=== PATIENT | male | born 1960 | race Caucasian/White ===

== ENCOUNTER 2019-03-31 19:13 | Outpatient (REF) | payer MEDICAID, SELFPAY ==
[2019-03-31 21:27] LABS: BUN 12 mg/dL (7-18); Calcium 8.4 mg/dL (8.5-10.1); Chloride 105 mmol/L (98-107); Glucose 133 mg/dL (70-100); Potassium 3.6 mmol/L (3.5-5.1); Sodium 142 mmol/L (136-145)
== END 2019-03-31 19:33 ==
LOC: NCHCN 19:13
PROVIDERS: PCP Nurse Practitioner; Visit Provider Internal Medicine
DX: I10 Essential (primary) hypertension (principal)
CPT/HCPCS: 80048

== ENCOUNTER 2019-10-06 10:53 | Outpatient (CLI) | payer MEDICAID, SELFPAY ==
--- NOTE | 2019-10-06 10:45 | DI.RAD_ITS ---
EXAM: XR KNEE LT 3V AP,LAT,JUSTO CLINICAL HISTORY: L knee pain. TECHNIQUE: 2D digital imaging was performed. COMPARISON: No exams were available for comparison FINDINGS: BONES: No acute fracture is present. No bony destructive lesion is seen. Small enthesophyte at the s uperior patella. JOINTS: The knee is normally aligned. No joint effusion is seen. SOFT TISSUE: Normal. IMPRESSION: Normal radiographs of the left knee. DATA REPOSITORY: RADIATION DOSE DELIVERED:
== END 2019-10-06 11:13 ==
PROVIDERS: PCP Internal Medicine; Visit Provider Physician Assistant
DX: M25.562 Pain in left knee (principal)
CPT/HCPCS: 73562

== ENCOUNTER 2019-10-12 08:39 | Outpatient (CLI) | payer MEDICAID, SELFPAY ==
--- NOTE | 2019-10-12 | DI.US_ITS ---
EXAM: US ABDOMEN CLINICAL HISTORY: ABD PAIN, R10.9 TECHNIQUE: Ultrasound performed using standard protocol. COMPARISON: No exams were available for comparison FINDINGS: Liver is normal in size and echogenicity. No focal lesions or biliary dilatation is seen. The gall bladder has a normal appearance, without evidence of stones or wall thickening. The spleen, pancreas are unremarkable. There is no ascites. There is a small cyst in the left kidney. There is no evid ence of hydronephrosis. IMPRESSION: No acute abnormality. DATA REPOSITORY:
== END 2019-10-12 08:59 ==
PROVIDERS: PCP Internal Medicine; Visit Provider Specialist/Technologist Athletic Trainer
DX: R10.9 Unspecified abdominal pain (principal); N28.1 Cyst of kidney, acquired
CPT/HCPCS: 76700

== ENCOUNTER 2020-03-26 12:48 | Outpatient (REF) | payer MEDICAID, SELFPAY ==
[2020-03-26 20:53] LABS: Anion Gap 4.7 mmol/L (3-11); BUN 15 mg/dL (7-18); CO2 31.3 mmol/L (21.0-32.0); CREATININE 1.09 mg/dL (0.70-1.30); Calcium 9.3 mg/dL (8.5-10.1); Calculated LDL 151 mg/dL (<100); Chloride 106 mmol/L (98-107); Cholesterol 231 mg/dL (<200); Glucose 115 mg/dL (74-106); HDL Cholesterol 51 mg/dL (40-60); Potassium 4.1 mmol/L (3.5-5.1); Sodium 142 mmol/L (136-145); Triglyceride 148 mg/dL (<150)
== END 2020-03-26 13:08 ==
LOC: NCHCN 12:48
PROVIDERS: PCP Internal Medicine; Visit Provider Internal Medicine
DX: I10 Essential (primary) hypertension (principal); M54.2 Cervicalgia; Z13.220 Encounter for screening for lipoid disorders
CPT/HCPCS: 80048; 80061

== ENCOUNTER 2021-02-25 14:15 | Outpatient (CLI) | payer MEDICAID, SELFPAY ==
--- NOTE | 2021-02-25 13:30 | DI.RAD_ITS ---
Exam(s) XR KNEE RT 3V AP,LAT,JUSTO EXAM: XR KNEE RT 3V AP,LAT,JUSTO CLINICAL HISTORY: right knee pain. TECHNIQUE: 2D digital imaging was performed. COMPARISON: CR XR KNEE LT 3V AP,LAT,JUSTO from 10/06/2019 FINDINGS: There is no evidence of fracture or prominent joint effusion. No osseous lesions. No degenerative c hanges. IMPRESSION: No significant radiographic findings. DATA REPOSITORY: RADIATION DOSE DELIVERED:
== END 2021-02-25 14:16 | disposition home or self-care (01) ==
LOC: DIORS 14:16
PROVIDERS: PCP Internal Medicine; Visit Provider Physician Assistant
DX: M25.561 Pain in right knee (principal)
CPT/HCPCS: 73562

== ENCOUNTER 2022-03-26 15:41 | Outpatient (REF) | payer MEDICAID, SELFPAY ==
[2022-03-26 21:44] LABS: HGB 15.6 g/dL (13.5-17.5); MCH 31.7 pg (27.0-33.0); MCHC 36.3 % (32.0-36.0); MCV 87 fL (80-95); MPV 10.9 fL (8.0-11.0); Platelet Count 192 10^3/uL (130-400); RBC 4.92 10^6/uL (4.36-5.78); RDW 11.8 % (11.8-14.1); RDW-SD 37.9 fL; WBC 6.13 10^3/uL (4.4-10.8)
[2022-03-26 22:04] LABS: Anion Gap 7.5 mmol/L (3-11); BUN 15 mg/dL (7-18); CO2 29.5 mmol/L (21.0-32.0); CREATININE 1.1 mg/dL (0.70-1.30); Calcium 9.1 mg/dL (8.5-10.1); Chloride 104 mmol/L (98-107); Glucose 107 mg/dL (74-106); Potassium 3.8 mmol/L (3.5-5.1); Sodium 141 mmol/L (136-145)
== END 2022-03-26 15:42 | disposition home or self-care (01) ==
LOC: NCHCN 15:41
PROVIDERS: PCP Family Medicine; Visit Provider Family Medicine
DX: I10 Essential (primary) hypertension (principal); R07.9 Chest pain, unspecified
CPT/HCPCS: 80048; 85027

== ENCOUNTER 2022-11-22 01:16 | Emergency (ER) | payer MEDICAID, SELFPAY ==
[2022-11-22] VITALS (23 sets, daily range): BP systolic 149–192; BP diastolic 74–88; PULSE 49–73; RESP 8–18; TEMP 37.5; O2SAT 93–97
--- NOTE | 2022-11-22 01:15 | RT.EKG_ITS ---
APPROVED REPORT Exam: Resting ECG Reason for Exam: difficulty breathing Patient Location: E HR:75 bpm ECG Measurements Heart Rate 75 AXIS KS 190 P -22 QRSd 103 QRS 245 QT 413 T 52 QTc 462 Conclusion Sinus rhythm...normal P axis, V-rate 60- 99 LAD, consider left anterior fascicular block...axis(240,-40), S>R II III aVF Physician: no stemi
--- NOTE | 2022-11-22 01:15 | DI.CT_ITS ---
Exam(s) CT CHEST PE CTA EXAM: CT CHEST PE CTA CLINICAL HISTORY: Shortness of breath, pleuritic chest pain. TECHNIQUE: Imaging Protocol: Axial CT angiography was performed with multi-slice acquisition and mu lti-planar reconstructions as well as axial, coronal and sagittal MIP reconstructions. CONTRAST MATERIAL: Intravenous: Omnipaque 350 Contrast volume:100 ml COMPARISON: No exams were available for comparison FINDINGS: Pulmonary Arteries: No evidence of filling defect to suggest pulmonary emboli. Tracheobronchial tree: Patent where visualized. Mediastinum and Dang: No dominant adenopathy or fluid collection. Pulmonary parenchyma: Expiratory changes. No consolidation or dominant measurable mass. Pleura: No effusion or pneumothorax. Heart: The heart is mildly dilated. No coronary artery calcifications are seen. Aorta: Thoracic aorta non-dilated. No aneurysm. No dissection. Upper abdomen: Small hiatal hernia Bones: Unremarkable for age. Tubes, Catheters, and Lines: None IMPRESSION: No evidence of pulmonary embolism or other acute abnormality.. RADIATION DOSE DELIVERED: 429.11mGy.cm Total DLP DATA REPOSITORY: All CT scans at this facility are submitted to the National Radiology Data Registry (NRDR) Dose Index Registry (DIR) with the [employer] (ACR). RADIATION OPTIMIZATION: All CT scans at this facility use at least one of these dose optimization te chniques: automated exposure control; mA and/or kV adjustment per patient size (includes targeted exa ms where dose is matched to clinical indication); or iterative reconstruction.
--- NOTE | 2022-11-22 01:44 | ED.GENADUL_ITS ---
Discharge Plan Disposition Patient Disposition: Home Condition: Good Discharge Details Clinical Impression: Breath shortness, Chest discomfort Primary Care Provider: Samuel Morgan ED Provider: Mariusz Henriquez Home Meds and New Rx's Prescriptions: Continued fluticasone propionate 50 mcg/actuation spray,suspension 2 spray RAYRAY DAILY hydrochlorothiazide 25 mg tablet 12.5 mg PO DAILY lisinopril 10 mg tablet 5 mg PO DAILY Discharge Instructions Instructions: Chest Pain (ED), Dyspnea (ED) Additional Instructions: At this time your work-up has returned and is very reassuring. Your imaging shows no evidence of blood clots, tumors, your work-up shows no signs of heart attack, or other significant abnormality. As we discussed together there are potential causes that may have brought about your symptoms, including your hiatal hernia, reflux, or muscle components. Please follow-up closely with your primary care provider. You can further discuss potential stress testing on an outpatient basis. If you notice any worsening of your symptoms, or any new symptoms such as vomiting, diarrhea, fever, chills, shortness of breath, chest pain, numbness, weakness, or fainting , please return immediately to the emergency department for reevaluation. Please follow up with your primary care provider as soon as possible for reassessment and reevaluation. As always, it was a pleasure participating in your medical care today. Referrals: Samuel Morgan MD [Primary Care Provider] - Medical Decision Making 62-year-old male with a past medical history of hypertension, previous sleep apnea years ago, presents today for evaluation of difficulty breathing and shortness of breath. Patient states that he woke up this evening with notable trouble breathing. He is uncertain how long it has been going on before hand. It lasted about 30 seconds where he felt that he could not breathe at all. He states that it feels different than when he had his sleep apnea in the past. It resolved on its own, he still has what he describes as a residual mild tightness when he takes of breath, but no significant pain. He feels well otherwise. He denies any significant chest pain in general, no arm neck or shoulder pain. He denies any significant difficulty with exertion or return or worsening of symptoms with exertion. He states that he did go for a run yesterday and had no significant challenges with this. He denies any regular exertional chest pain or dyspnea. No other complaints at this time. He denies any recent long trips surgeries or procedures. He denies a history of blood clots or heart attack. He does not smoke. He denies any tearing or ripping sensation. Physical exam demonstrates a well-appearing male, no signs of respiratory distress at this time. Blood pressure is slightly high, but O2 saturations are excellent. Lungs are clear. Calves are nontender. EKG shows no evidence of STEMI. Differential includes sleep apnea episode, precordial catch syndrome, PE or dysrhythmia. COPD or pneumonia is of concern. He does admit to a very mild cough that he has had over the past few weeks, but this was relatively benign. We will evaluate for these concerning etiologies, monitor closely and reassess. 5:52 AM Laboratory work-up has returned, initial and repeat troponin are normal. Electrolytes normal, proBNP is normal suggesting no signs of heart strain. COVID flu and RSV are negative. CT/CTA of the chest shows no evidence of PE. Small amount of atelectasis and a hiatal hernia but no other significant abnormality. Patient remains notably stable, no signs of shortness of breath or abnormal vital signs whatsoever. Patient looks clinically well. Uncertain as to what the exact etiology was that caused the patient's initial symptoms, however differential does include reflux, his hiatal hernia, or laryngeal spasm which is since resolved. At this time I do feel safe patient is safe for discharge home. He shows clinical stability on reassessment. Discussed red fla gs for which to return. I have extensively reviewed the treatment plan and discharge instructions with the patient and their family. I have addressed all patient concerns at this time. The patient and family was made aware of what symptoms to monitor for that would warrant a return to the emergency department. Discussed the plan with the patient and family, they demonstrate verbal understanding and agreement with our assessment and plan at this time. The documentation in this chart was dictated using [employer] dictation software. Please excuse any dictation errors. FINDINGS: Pulmonary arteries: No pulmonary artery filling defects. Aorta: No aortic aneurysm or dissection. Lungs: Dependent subsegmental atelectasis. Pleural spaces: Unremarkable. No pneumothorax. No pleural effusion. Heart: Heart top normal in size. Heart RV/LV ratio: 0.85. Coronary arteries: No coronary artery calcifications. Lymph nodes: Unremarkable. No enlarged lymph nodes. Diaphragm: Small hiatal hernia. Bones/joints: Unremarkable. No acute fracture. Soft tissues: Unremarkable. IMPRESSION: 1. No acute findings. 2. Small hiatal hernia. Thank you for allowing us to participate in the care of your patient. Dictated and Authenticated by: Han Madera DO 11/22/2022 5:20 AM Eastern Time ([place] & [place]) HPI General Date/Time Provider Initiated Documentation: 11/22/22 01:18 . HPI Narrative: 62-year-old male with a past medical history of hypertension, previous sleep apnea years ago, presents today for evaluation of difficulty breathing and shortness of breath. Patient states that he woke up this evening with notable trouble breathing. He is uncertain how long it has been going on before hand. It lasted about 30 seconds where he felt that he could not breathe at all. He states that it feels different than when he had his sleep apnea in the past. It resolved on its own, he still has what he describes as a residual mild tightness when he takes of breath, but no significant pain. He feels well otherwise. He denies any significant chest pain in general, no arm neck or shoulder pain. He denies any significant difficulty with exertion or return or worsening of symptoms with exertion. He states that he did go for a run yesterday and had no significant challenges with this. He denies any regular exertional chest pain or dyspnea. No other complaints at this time. He denies any recent long trips surgeries or procedures. He denies a history of blood clots or heart attack. He does not smoke. He denies any tearing or ripping sensation. Related Data Home Medications Medication Instructions Recorded Confirmed fluticasone propionate 50 2 spray intranasal DAILY 09/19/19 11/22/22 mcg/actuation nasal spray,suspension hydrochlorothiazide 25 mg tablet 12.5 mg PO DAILY 02/25/21 11/22/22 lisinopril 10 mg tablet 5 mg PO DAILY 02/25/21 11/22/22 Allergies Allergy/AdvReac Type Severity Reaction Status Date / Time penicillin V Allergy Mild Verified 11/22/22 01:31 General Stated Complaint: SOB KVNG: 3 Review of Systems All systems reviewed & are unremarkable except as noted in HPI and below PFSH All Active Problems (Updated 11/22/22 @ 05:41 by Mariusz Henriquez DO) Breath shortness (Acute) Chest discomfort (Acute) Internal derangement of right knee (Acute) Bilateral sensorineural hearing loss (Acute) Tendinopathy of patella (Acute) Iliotibial band syndrome, left leg (Acute) Nasal polyp (Acute) Deviated nasal septum (Acute) Allergic rhinitis (Acute) HTN (hypertension) (Chronic) Flushing (Acute) Sleep apnea (Acute) Chest pain, atypical (Acute) Neck pain (Acute) Seborrheic keratosis (Acute) Preventative health care (Acute) Knee joint pain (Acute) Ventral hernia (Acute) Medical History Hearing loss Shoulder pain Social History Smoking/Tobacco Use Status: Former Tobacco Use Smoking risk assessment performed?: Yes Substance use type: does not use Current gender identity: male Exam Narrative Exam Narrative: 1.Const: Well-nourished, Well-developed, appearing stated age 2.Eyes: PERRL, no conjunctival injection, and symmetrical lids. 3.ENT: Atraumatic external nose and ears. Moist MM. Neck: Symmetric, trachea midline, No thyromegaly. 4.CVS: +S1/S2, No murmurs or gallops. Peripheral pulses 2+ and equal in all extremities. Brisk capillary refill in all extremities. 5.RESP: Unlabored respiratory effort. Clear to auscultation bilaterally. No wheezes rales or rhonchi 6.GI: Soft, Nontender/Nondistended, No hepatosplenomegaly. No guarding or rebound. 7.MSK: Normocephalic/Atraumatic, Extremities w/o deformity or ttp No cyanosis or clubbing, Normal movement of all extremities 8.Skin: Warm, Dry. No rashes or lesions. 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 Sensation grossly intact, no focal neurologic deficits. 10.Psych: (AAO) x3. Appropriate mood and affect Course Vital Signs Vital signs: Vital Signs Temperature 37.5 C 11/22/22 01:20 Pulse 73 11/22/22 01:20 Respiratory Rate 16 11/22/22 01:20 Blood Pressure 192/86 H 11/22/22 01:20 Pulse Oximetry 96 11/22/22 01:20 Temperature 37.5 C 11/22/22 01:20 Temperature Source Skin 11/22/22 01:20 Pulse 73 11/22/22 01:20 Respiratory Rate 16 11/22/22 01:20 Respiratory Effort Normal 11/22/22 01:29 Blood Pressure 192/86 H 11/22/22 01:20 Blood Pressure Position Sitting 11/22/22 01:20 Pulse Oximetry 96 11/22/22 01:20 Oxygen Delivery Method Room Air 11/22/22 01:20 Oxygen Flow Rate 0 11/22/22 01:20 Pain Level 1 11/22/22 01:20
[2022-11-22 01:57] LABS: Abs Immature Grans 0.01 10^3/uL (0.0-0.06); Absolute Basophil Count 0.02 10^3/uL (0.0-0.2); Absolute Eosinophil Count 0.27 10^3/uL (0.0-0.7); Absolute Lymphocyte Count 1.19 10^3/uL (1.2-3.4); Absolute Monocyte Count 0.35 10^3/uL (0.1-0.8); Absolute Neutrophil Count 3.31 10^3/uL (1.2-6.7); BE (Venous) 3 mmol/L (-2-3); Basophils % 0.4; Eosinophils % 5.2; HCO3 (Venous) 28 mmol/L (23-28); HCT 39.4 % (40.0-50.0); HGB 13.9 g/dL (13.5-17.5); Immature Grans % 0.2; Lymphocytes % 23.1; MCH 31.2 pg (27.0-33.0); MCHC 35.3 % (32.0-36.0); MCV 88 fL (80-95); MPV 10.2 fL (8.0-11.0); Monocytes % 6.8; Neutrophils % 64.3; O2 Sat (Venous) 78 %; Platelet Count 167 10^3/uL (130-400); RBC 4.46 10^6/uL (4.36-5.78); RDW 12.3 % (11.8-14.1); RDW-SD 39.6 fL; TCO2 (Venous) 25 mmol/L (24-29); WBC 5.15 10^3/uL (4.4-10.8); pCO2 (Venous) 46 mmHg (41-51); pO2 (Venous) 42 mmHg
[2022-11-22 02:14] LABS: COVID-19 PCR Negative (Negative); Influenza A PCR Negative (Negative); Influenza B PCR Negative (Negative); RSV PCR Negative (Negative)
[2022-11-22 02:14] LABS: INR 0.9 (0.9-1.1); PTT Activated 26.3 sec (21.5-31.9); Prothrombin Time 9.6 sec (9.3-11.0)
[2022-11-22 02:20] LABS: ALT 23 U/L (16-63); AST 13 U/L (15-37); Albumin 3.5 g/dL (3.4-5.0); Alkaline Phosphatase 33 U/L (46-116); Anion Gap 5.5 mmol/L (3-11); BUN 11 mg/dL (7-18); Bilirubin, Total 0.5 mg/dL (0.2-1.0); CO2 28.5 mmol/L (21.0-32.0); CREATININE 1.1 mg/dL (0.70-1.30); Calcium 8.6 mg/dL (8.5-10.1); Chloride 106 mmol/L (98-107); Glucose 145 mg/dL (74-106); NT-proBNP 244 pg/mL (<300); Potassium 3.5 mmol/L (3.5-5.1); Sodium 140 mmol/L (136-145); Troponin I < 50 ng/L (<or=60)
[2022-11-22 02:21] LABS: Source Nasopharynx
--- NOTE | 2022-11-22 02:48 | NUR.NOTE ---
Nursing Note: Pt ambulatory to restroom without difficulty.
[2022-11-22] MEDS: Omnipaque 350 MG/ML 100 ML BTL IJ (02:49)
[2022-11-22] MEDS: Normal Saline - Diluent 50 ML VIAL IJ (02:49)
[2022-11-22 04:30] LABS: Troponin I < 50 ng/L (<or=60)
--- NOTE | 2022-11-22 05:20 | DI.VRAD_ITS ---
PROCEDURE INFORMATION: Exam: CTA Chest With Contrast Exam date and time: 11/22/2022 2:42 AM Age: 62 years old Clinical indication: Pain; Shortness of breath; Right-sided; Additional info: Shortness of breath, pleuritic chest pain TECHNIQUE: Imaging protocol: Computed tomographic angiography of the chest with contrast. 3D rendering (Not supervised by radiologist): MIP and/or 3D reconstructed images were created by the technologist. Radiation optimization: All CT scans at this facility use at least one of these dose optimization techniques: automated exposure control; mA and/or kV adjustment per patient size (includes targeted exams where dose is matched to clinical indication); or iterative reconstruction. Contrast material: OMNI 350; Contrast volume: 100 ml; Contrast route: INTRAVENOUS (IV); COMPARISON: No relevant prior studies available. FINDINGS: Pulmonary arteries: No pulmonary artery filling defects. Aorta: No aortic aneurysm or dissection. Lungs: Dependent subsegmental atelectasis. Pleural spaces: Unremarkable. No pneumothorax. No pleural effusion. Heart: Heart top normal in size. Heart RV/LV ratio: 0.85. Coronary arteries: No coronary artery calcifications. Lymph nodes: Unremarkable. No enlarged lymph nodes. Diaphragm: Small hiatal hernia. Bones/joints: Unremarkable. No acute fracture. Soft tissues: Unremarkable. IMPRESSION: 1. No acute findings. 2. Small hiatal hernia. Dictated and Authenticated by: Han Madera MD. Ordering:EMMANUEL Vee MD
== END 2022-11-22 05:50 | disposition home or self-care (01) ==
PROVIDERS: Emergency Provider Student in an Organized Health Care Education/Training Program; PCP Family Medicine
DX: R06.02 Shortness of breath (principal); R07.89 Other chest pain; R05.9 Cough, unspecified; I10 Essential (primary) hypertension; J98.11 Atelectasis; K44.9 Diaphragmatic hernia without obstruction or gangrene; Z87.891 Personal history of nicotine dependence; Z20.822 Contact with and (suspected) exposure to COVID-19
CPT/HCPCS: 71275; 80053; 82805; 87637; 93005; 99285; 83880; 84484; 85025; 85610; 85730; 93010; 99283; J3490

== ENCOUNTER 2023-01-09 10:28 | Outpatient (RCR) | payer MEDICAID, SELFPAY ==
--- NOTE | 2023-01-09 10:44 | HOLTER_ITS ---
APPROVED REPORT Conclusion This is a 48-hour Holter monitor Rhythm throughout is sinus. Average heart rate was 53. Minimum was 42, maximum 122 There were very rare isolated atrial and ventricular ectopic beats There was no atrial fibrillation, no SVT, no high-grade AV block, no pauses greater than 3 seconds
== END 2023-01-30 23:59 | disposition home or self-care (01) ==
LOC: CARDOPNVT 10:28
PROVIDERS: PCP Family Medicine; Visit Provider Family Medicine
DX: R07.1 Chest pain on breathing (principal)
CPT/HCPCS: 93225; 93226

== ENCOUNTER 2023-01-12 11:21 | Outpatient (REF) | payer MEDICAID, SELFPAY ==
[2023-01-13 11:53] LABS: Creatinine,Urine 31.12 mg/dL
[2023-01-13 12:02] LABS: Creatinine,24hr Ur 1.09 g/24hr (0.95-2.49); Total Volume 3500 ml
[2023-01-15 12:48] LABS: Urine Volume 3500 mL; VMA, Adult (>14y) 1.8 mg/24 h (<8.0)
[2023-01-16 01:59] LABS: Metanephrines, U 112 mcg/24 h; Normetanephrine, U 172 mcg/24 h; Total Metanephrines, U 284 mcg/24 h; Urine Volume 3500 mL
[2023-01-18 16:12] LABS: Urine Volume 3500 mL
== END 2023-01-12 11:22 | disposition home or self-care (01) ==
LOC: NCHCN 11:21
PROVIDERS: PCP Family Medicine; Visit Provider Family Medicine
DX: I10 Essential (primary) hypertension (principal)
CPT/HCPCS: 81050; 82384; 82570; 83835; 84585

== ENCOUNTER 2023-01-16 01:01 | Outpatient (CLI) | payer MEDICAID, SELFPAY ==
--- NOTE | 2023-01-16 09:30 | DI.US_ITS ---
APPROVED REPORT EXAM: Comprehensive 2D, Doppler, and color-flow Echocardiogram Patient Location: Out-Patient Leadership Development Consultant: Danial Noel RDMS, RVT Indications: dyspnea, chest pain, HTN Other Information Study Quality: Adequate Conclusion Normal left ventricular wall thickness and chamber size. Ejection fraction is 60 to 65%. Wall motio n is normal Normal right ventricular size and systolic function Both atria are normal in size No structural or hemodynamically significant valvular disease We will estimated right ventricular systolic pressure, 22 mmHg Wall motion Left Ventricle The left ventricle is normal size. The left ventricular systolic function is normal. The left ventric ular ejection fraction is within the normal range. There is normal left ventricular wall thickness. T here is normal LV segmental wall motion. There is no ventricular septal defect visualized. LVEF is 60 -65%. Right Ventricle The right ventricle is normal size. The right ventricular systolic function is normal. The RVSP is 21 .7 mmHg. Atria The left atrium size is normal. The right atrium size is normal. The interatrial septum is intact wit h no evidence for an atrial septal defect. Aortic Valve The aortic valve is normal in structure. Aortic valve is trileaflet. There is no aortic valvular sten osis. Trace aortic regurgitation. Mitral Valve The mitral valve is normal in structure. No evidence of mitral valve stenosis. Trace mitral regurgita tion. Tricuspid Valve The tricuspid valve is normal in structure. There is no tricuspid valve stenosis. Trace tricuspid reg urgitation. Pulmonic Valve The pulmonary valve is normal in structure. There is no pulmonic valvular stenosis. Trace pulmonic re gurgitation. Great Vessels The aortic root is normal in size. The ascending aorta is normal in size. Aortic arch is normal in ca liber. IVC is normal in size and collapses >50% with inspiration. Pericardium There is no pericardial effusion. 2D Dimensions IVSD d PLAX 0.67 cm M: 0.6-1.2 LV Vol A2C d MOD 155.0 mL LVPW d PLAX 0.68 cm M: 0.6 - 1.2 LV Vol A4C d MOD 148.0 mL LVID d PLAX 4.69 cm M: 4.2 - 5.8 LA Area A4C s MOD 24.85 cm2 LVDs 3.10 cm M: 2.5 - 4.0 LV EF A4C MOD 62.3 % Ao Root d 3.69 cm M: 3.1 - 3.7 LV EF A2C MOD 65.7 % Ao Asc Diam d 3.27 cm M: 2.6 - 3.4 LV EF Biplane MOD 64.9 % LV EF Teichholz 61.7 % SV 99.30 mL LVEF (Espinosa's) 64.88 % M: 52 - 72 LV Volume 153.06 mL M: 62 - 150 LV Volume Index 76.14 mL/m2 M: 34 - 74 LV Vol Biplane MOD 153.1 mL FS 33.15 % M-Mode TAPSE 3.05 cm (M/F) >1.7 LV Diastology MV E' medial 0.073 (>0.07 m/s) E/A Ratio 0.9 LV E/e MED 9.15 (<14) MV E Vmax 0.67 (0.4-1.3 m/s) MV E' lateral 0.124 (>0.1 m/s) MV A Vmax 0.75 (0.4-1.3 m/s) LV E/e LAT 5.40 (<14) MV E/A Ratio 0.89 MV E/E' medial 9.16 MV E/E' lateral 5.42 Aortic Valve LVOT Area 3.65 cm2 AoV Area Vmax 2.95 cm2 LVOT Vmax 1.09 m/s DAJA Mean Noel. 2.99 cm2 LVOT Mean Noel. 0.73 m/s AR DT 3402 msec LVOT Peak Grad 4.8 mmHg AR PHT 986 msec LVOT Mean Grad 2.5 mmHg LVOT VTI 0.244 m LVOT Diam s 2.15 cm AoV Vmax 1.35 m/s Velocity Ratio 0.81 AoV Mean Noel. 0.89 m/s AoV Peak Grad 7.3 mmHg LVOT SV 88.84 mL AoV Mean Grad 3.6 mmHg AoV VTI 0.272 m AoV Area VTI 3.27 cm2 Mitral Valve MV DT 237 (160-240 msec) MV PHT 69 msec MV Area PHT 3.20 cm2 MV VTI 0.305 m MV Area VTI 2.91 (4.0-6.0 cm2) Pulmonary Valve PV Vmax 1.23 (0.5-1.5 m/s) RVOT Peak Gr. 3.11 mmHg PV Peak Grad 6.0 mmHg RVOT Mean Gr. 1.20 mmHg PV Mean Grad 2.9 mmHg RVOT VTI 0.145 m PV VTI 0.257 m RVOT Vmax 0.88 m/s Tricuspid Valve TR Peak Grad 18.6 mmHg TR Vmax 2.16 m/s RA Pressure 3.00 mmHg RVSP (TR) 21.7 mmHg
== END 2023-01-16 01:21 ==
LOC: DI 01:01
PROVIDERS: PCP Family Medicine; Visit Provider Family Medicine
DX: R07.89 Other chest pain (principal); R06.00 Dyspnea, unspecified
CPT/HCPCS: 93306

== ENCOUNTER 2023-01-19 01:20 | Outpatient (CLI) | payer MEDICAID, SELFPAY ==
--- NOTE | 2023-01-19 14:37 | DI.RAD_ITS ---
Exam(s) XR CERVICAL SP COMP W FLEX/EXT EXAM: XR CERVICAL SP COMP W FLEX/EXT CLINICAL HISTORY: NECK PAIN M54.2. TECHNIQUE: 2D digital imaging was performed. Seven views. Flexion and extension lateral views were performed in addition to the neutral lateral view. COMPARISON: No exams were available for comparison FINDINGS: BONES: No fracture or destructive lesion. Vertebral bodies are unremarkable. Facet degenerative murray nges throughout. DISKS: Moderate narrowing of the C5-6 and C6-7 disc spaces with endplate osteophytes projecting mainl y anteriorly. There is moderate right neural foraminal narrowing these levels. Neural foraminal santo rowing is also seen secondary to facet degenerative changes on the left at C3-4 through C5-6. ALIGNMENT: Some straightening of the normal cervical lordosis secondary to facet degenerative changes . There is slight retrolisthesis of C5 with respect to C4 with flexion. The odontoid and atlantoaxi al articulations are normal. SOFT TISSUE: Normal. The lung apices are clear. IMPRESSION: Degenerative disc changes greatest at C 5 6 and C6-7. Facet degenerative changes greater on the left side causing neural foraminal narrowing. DATA REPOSITORY: RADIATION DOSE DELIVERED:
--- NOTE | 2023-01-19 15:00 | ETT_ITS ---
APPROVED REPORT Exam: Exercise Treadmill Patient Location: Out-Patient Room/Bed: Stress Nurse: Tawny Reilly RN Ordering Provider:PRESTON KUMAR, Contact Number: [phone] BMI: 27.31 Baseline Rhythm: Sinus Rhythm Comment: Incomplete RBBB, T wave inversions at rest in aV: and V2 Indications: Dyspnea, Chest Pain, Hypertension Medical History Medical History: HTN, sleep apnea, hearing loss, hx of white coat syndrome w/ high BP's in healthcare settings Cardiac Medications: Lisinopril, HCTZ Allergies: Penicillin Cardiac Risk Factors: +HTN, +HLD Previous Cardiac Procedures: None Pretest Chest Pain Characteristics: None Exercise History: Physically active Physical Disabilities: None Lung Sounds: Cleat to auscultation, bilaterally Heart Sounds: S1/S2, regular Stress Test Details Test: Exercise stress testing was performed using a Fazal protocol. Rest Stress HR Resting HR Supine: 72 bpm Max Heart Rate (APMHR): 158 bpm Resting HR Standin bpm Target HR (85% APMHR): 134 bpm Max HR Achieved: 136 bpm % of APMHR: 86 Recovery HR: 68 bpm HR response to stress: Normal HR response to stress BP Resting BP Supine: 190/88 mmHg Resting BP Standin/98 mmHg Max BP: 200/100 mmHg Recovery BP: 180/90 mmHg BP response to stress: Normal blood pressure response to stress. ECG Resting ECG: Sinus Rhythm, Incomplete RBBB, t wave inversions in aVL, V2 Ectopy: None Stress ECG: Sinus Tachycardia ST Change: No significant ST segment changes noted Arrhythmia: None Recovery ECG: Sinus Rhythm Recovery ST Change: No significant ST segment changes noted Recovery Arrhythmia: Rare PVC Clinical Reason for Termination: Fatigue Stress Symptoms: General Fatigue Exercise duration: 9 min43 sec Highest Stage Reached: Stage 3: 3.4 mph at 14% grade. Exercise capacity: 11.35 METs Angina Score: None Rincon Treadmill Score: 9 Rate Pressure Product: [id number] Stress ECG Conclusion 1. The resting electrocardiogram showed an incomplete right bundle branch block 2. Resting hypertension. Normal heart rate and blood pressure response to exercise. 3. Patient exercised on the Fazal protocol and completed a workload of 11.35 METS. The patient achie mague 86% of predicted heart rate for age 4. There was no electrocardiographic evidence of myocardial ischemia 5. There were no significant dysrhythmias Rincon Treadmill Score is 9 which is Low risk. Stress Test Summary STAGE Time (mins) Speed (mph) Grade (%) HR BP SpO2 SYMPTOMS METS Supine 72 200/100, repeat 190/88 Standing 65 194/98 1 3 1.7 10 89 188/90 4.5 2 6 2.5 12 104 198/90 7 3 9 3.4 14 136 200/90 10 1 min recovery 109 192/84 3 min recovery 66 200/100 6 min recovery 68 180/90
== END 2023-01-19 01:40 ==
LOC: DI 01:20
PROVIDERS: PCP Family Medicine; Visit Provider Family Medicine
DX: R07.89 Other chest pain (principal); I10 Essential (primary) hypertension; R06.00 Dyspnea, unspecified
CPT/HCPCS: 72052; 93017

== ENCOUNTER 2023-01-21 14:12 | Outpatient (CLI) | payer MEDICAID, SELFPAY ==
--- NOTE | 2023-01-21 | DI.RAD_ITS ---
Exam(s) XR SHOULDER LT COMPLETE 2+V EXAM: XR SHOULDER LT COMPLETE 2+V CLINICAL HISTORY: NECK PAIN, M54.2. TECHNIQUE: 2D digital imaging was performed of the left shoulder. Five images were obtained. AP, G rashey, Y-view and axillary views were obtained. COMPARISON: CR XR CERVICAL SP COMP W FLEX/EXT from 01/19/2023 FINDINGS: BONES: No acute fracture is present. No bony destructive lesion is seen. JOINTS: No dislocation present. The joint spaces are well maintained. SOFT TISSUE: There is a 2 cm long linear density in the soft tissues lateral to the proximal humeral diaphysis. This appears to represent a foreign body in the soft tissues. IMPRESSION: 1. 2 cm linear foreign body in the soft tissues lateral to the proximal humeral diaphysis. 2. No acute osseous abnormality. Unexpected findings DATA REPOSITORY: RADIATION DOSE DELIVERED:
== END 2023-01-21 14:32 ==
LOC: DI 14:12
PROVIDERS: PCP Family Medicine; Visit Provider Family Medicine
DX: M54.2 Cervicalgia; M79.89 Other specified soft tissue disorders
CPT/HCPCS: 73030

== ENCOUNTER 2023-02-03 07:40 | Emergency (ER) | payer MEDICAID, SELFPAY ==
[2023-02-03 07:44] VITALS: BP 182/93; PULSE 66; RESP 16; TEMP 37.2; O2SAT 98
[2023-02-03 07:53] VITALS: RESP 16
--- NOTE | 2023-02-03 08:38 | W.ED.GENAD ---
Discharge Plan Disposition Patient Disposition: Home Condition: Stable Discharge Details Clinical Impression: Depression, Anxiety, Hypokalemia Primary Care Provider: Samuel Morgan ED Provider: Agustin Ann Home Meds and New Rx's Prescriptions: New citalopram [Celexa] 10 mg tablet 20 mg PO DAILY Qty: 14 0RF Continued fluticasone propionate 50 mcg/actuation spray,suspension 2 spray RAYRAY DAILY hydrochlorothiazide 25 mg tablet 12.5 mg PO DAILY lisinopril 10 mg tablet 10 mg PO DAILY Discharge Instructions Instructions: Hypokalemia (ED), Depression (ED), Anxiety (ED) Additional Instructions: Please follow-up with [facility]. Thank Please contact your primary care physician to arrange follow-up. Call tomorrow. Be sure to discuss initiation of antidepressant. Return to the ER immediately for any worsening or new concerning symptoms. Referrals: [facility] [Outside] Samuel Morgan MD [Primary Care Provider] - Medical Decision Making 900 --62-year-old male with history of hypertension, here with depression and anxiety, persistent over the past 2 weeks and at times severe with associated suicidality. Patient has no specific plan. Patient notes generalized fatigue, difficulty sleeping and poor sleeping with unintentional weight loss. Patient is not currently suicidal and feels safe here in the emergency department. He has had significant difficulty securing outpatient psychiatric services. Plan to consult [facility] for crisis evaluation. Consider thyroid disease and will obtain TSH. -- Labs reviewed and nondiagnostic. Mild hypokalemia noted. I will give potassium chloride 20 meq p.o. Patient medically cleared. 1250 --patient seen by [facility] crisis screener who recommends outpatient follow-up and will provide referral resources. 1320 --patient feels safe with discharge plan. He is requesting initiation of SSRI. Patient has a friend who is a psychologist that is recommended to restart this treatment. I explained that this would best be initiated by PCP with coordination with mental health team. Patient provided informed consent to initiate treatment today with plan for close outpatient follow-up. He will contact PCP first thing tomorrow to discuss ongoing treatment. Lab Data Lab results reviewed: Yes I reviewed the patient's lab results. Labs: Laboratory Tests Range/Units 02/03/23 02/03/23 02/03/23 08:58 08:58 08:58 WBC (4.4-10.8) 10^3/uL 5.25 RBC (4.36-5.78) 10^6/uL 4.85 Hgb (13.5-17.5) g/dL 15.4 Hct (40.0-50.0) % 42.0 MCV (80-95) fL 87 MCH (27.0-33.0) pg 31.8 MCHC (32.0-36.0) % 36.7 H RDW (11.8-14.1) % 11.8 Plt Count (130-400) 10^3/uL 162 MPV (8.0-11.0) fL 10.0 Immature Gran % 0.4 Neutrophils % 78.2 Lymphocytes % 14.1 Monocytes % 6.3 Eosinophils % 0.6 Basophils % 0.4 Nucleated RBC % (0.0-0.3) % 0.0 Absolute Neutrophils (1.2-6.7) 10^3/uL 4.11 Absolute Lymphocytes (1.2-3.4) 10^3/uL 0.74 L Absolute Monocytes (0.1-0.8) 10^3/uL 0.33 Absolute Eosinophils (0.0-0.7) 10^3/uL 0.03 Absolute Basophils (0.0-0.2) 10^3/uL 0.02 Sodium (136-145) mmol/L 140 Potassium (3.5-5.1) mmol/L 3.4 L Chloride (98-107) mmol/L 104 Carbon Dioxide (21.0-32.0) mmol/L 28.3 Anion Gap (3-11) mmol/L 7.7 BUN (7-18) mg/dL 8 Creatinine (0.70-1.30) mg/dL 1.2 Est GFR (CKD-EPI 2020) (mL/min/1.73m2) 68.38 Glucose (74-106) mg/dL 137 H Calcium (8.5-10.1) mg/dL 8.8 Magnesium (1.8-2.4) mg/dL 2.1 Total Bilirubin (0.2-1.0) mg/dL 1.0 AST (15-37) U/L 13 L ALT (16-63) U/L 17 Alkaline Phosphatase (46-116) U/L 28 L Total Protein (6.4-8.2) g/dL 7.6 Albumin (3.4-5.0) g/dL 4.1 TSH (0.36-3.74) uIU/mL 1.20 Urine Color (Yellow) Yellow Urine Clarity (Clear) Clear Urine pH (5-8) 7.0 Ur Specific [place] (1.005-1.025) 1.015 Urine Protein (Negative) mg/dL Negative Urine Ketones (Negative) mg/dL Negative Urine Blood (Negative) Negative Urine Nitrite (Negative) Negative Urine Bilirubin (Negative) Negative Urine Urobilinogen (Up to 0.2) mg/dL 0.2 Ur Leukocyte Esterase (Negative) Negative Urine Glucose (Negative) mg/dL Negative HPI General Mode of arrival: ambulatory. Date/Time Provider Initiated Documentation: 02/03/23 07:41. Limitations to Documentation: no limitations. Information obtained by: patient and family (). HPI Narrative: 62-year-old male presents with chief complaint of depression and anxiety. Patient notes persistent anxiety and depression over the past 2 weeks. Patient feels overwhelmed. Symptoms do wax and wane and he has days with complete resolution of symptoms and then they return. Symptoms seem worse at night and in the morning. He notes difficulty sleeping. Symptoms are severe. He has had fleeting thoughts of suicidality with no plan. No firearms in the home. Patient also states no appetite and is actually a 10 pound weight loss over the past 2 weeks. Patient denies associated headache. No numbness or weakness. No visual changes. He has no chest pain or abdominal pain. Patient states he saw his PCP who provided referrals to multiple therapist in the area. He has called to schedule appointments and notes no availability. Related Data Home Medications Medication Instructions Recorded Confirmed fluticasone propionate 50 2 spray intranasal DAILY 09/19/19 02/03/23 mcg/actuation nasal spray,suspension hydrochlorothiazide 25 mg tablet 12.5 mg PO DAILY 02/25/21 02/03/23 lisinopril 10 mg tablet 10 mg PO DAILY 02/25/21 02/03/23 citalopram 10 mg tablet (Celexa) 20 mg PO DAILY #14 tabs 02/03/23 Previous Rx's Medication Instructions Recorded citalopram 10 mg tablet (Celexa) 20 mg PO DAILY #14 tabs 02/03/23 Allergies Allergy/AdvReac Type Severity Reaction Status Date / Time penicillin V Allergy Mild Verified 02/03/23 07:48 General Stated Complaint: Anxiety KVNG: 4 Review of Systems All systems reviewed & are unremarkable except as noted in HPI and below Constitutional Constitutional: Reports as per HPI, Reports difficulty sleeping, Reports fatigue, Denies fever(s) and Reports weight loss Cardiovascular Cardiovascular: Denies chest pain Respiratory Respiratory: Denies cough Endocrine Endocrine: Reports fatigue PFSH All Active Problems (Updated 02/03/23 @ 12:52 by Agustin Ann MD) Depression (Chronic) Anxiety (Chronic) Hypokalemia (Acute) Internal derangement of right knee (Acute) Bilateral sensorineural hearing loss (Acute) Tendinopathy of patella (Acute) Iliotibial band syndrome, left leg (Acute) Nasal polyp (Acute) Deviated nasal septum (Acute) Allergic rhinitis (Acute) HTN (hypertension) (Chronic) Flushing (Acute) Sleep apnea (Acute) Chest pain, atypical (Acute) Neck pain (Acute) Seborrheic keratosis (Acute) Preventative health care (Acute) Knee joint pain (Acute) Ventral hernia (Acute) Medical History Hearing loss Shoulder pain Social History Smoking/Tobacco Use Status: Former Tobacco Use Smoking risk assessment performed?: Yes Drug use: Never Substance use type: does not use Housing: house Current gender identity: male Do you feel safe at home: Yes Do you feel safe in your relationship?: Yes Exam Const General: cooperative [facility] Head: normocephalic and atraumatic Mouth: moist mucous membranes Eyes Conjunctivae: normal conjunctivae Sclera: normal sclerae EOM: EOM intact bilaterally Neck Neck: trachea midline and supple Resp Auscultation: clear to auscultation bilaterally, no rales, no rhonchi and no wheezes Cardio Rate: regular rate and not tachycardic Rhythm: regular rhythm GI Palpation: soft, not firm, no guarding, no masses, not rigid and nontender Skin General skin exam: no rashes or lesions noted Neuro General: patient alert, patient awake, patient oriented x3 and tone normal Cranial Nerves: CN's II-XI intact bilaterally Cognition: normal cognition Speech: speech normal Gait: normal gait Motor: strength 5/5 throughout Sensory Exam: no sensory deficits noted Extrem General: no edema Psych Appearance: grossly normal Mental Status: mental status grossly normal and other (depressed) Speech and Movement: speech and movement normal Mood: other (depressed) Affect: sad Attitude: cooperative Thought Process: normal Insight: insight good Judgment: judgment good Course Vital Signs Vital signs: Vital Signs Temperature 37.2 C 02/03/23 07:44 Pulse 66 02/03/23 07:44 Respiratory Rate 16 02/03/23 07:44 Blood Pressure 182/93 H 02/03/23 07:44 Pulse Oximetry 98 02/03/23 07:44 Temperature 37.2 C 02/03/23 07:44 Temperature Source Skin 02/03/23 07:44 Pulse 66 02/03/23 07:44 Respiratory Rate 16 02/03/23 07:53 Respiratory Effort Normal, Non-Labored 02/03/23 07:53 Respiratory Depth Normal 02/03/23 07:53 Respiratory Pattern Normal 02/03/23 07:53 Blood Pressure 182/93 H 02/03/23 07:44 Blood Pressure Position Sitting 02/03/23 07:44 Pulse Oximetry 98 02/03/23 07:44 Oxygen Delivery Method Room Air 02/03/23 07:44 Oxygen Flow Rate 0 02/03/23 07:44 Pain Level 0 02/03/23 07:44 PAWSS Have you Been Recently Intoxicated or Drunk Within the Last 30 days?: No Have you Ever Experienced Previous Episodes of Alcohol Withdrawal?: No Have you ever Experienced Withdrawal Seizures?: No Have you ever Experienced Delirium Tremens(DT)s?: No Have you ever undergone Alcohol Rehabilitation Treatment (i.e, inpt ot outpatient treatment programs)?: No Have you ever Experienced Blackouts?: No Have you ever Combined Alcohol with other Downers within the last 90 days?: No Have you ever Combined Alcohol with any other Substance of Abuse during the last 90 days?: No Positive Blood Alcohol level on Presentation? [PCS.BAL]: No Evidence of Increased Autonomic Activity (i.e. HR>120, tremor, sweating, agitation, nausea)?: No Result: 0
[2023-02-03 09:06] LABS: Abs Immature Grans 0.02 10^3/uL (0.0-0.06); Absolute Basophil Count 0.02 10^3/uL (0.0-0.2); Absolute Eosinophil Count 0.03 10^3/uL (0.0-0.7); Absolute Lymphocyte Count 0.74 10^3/uL (1.2-3.4); Absolute Monocyte Count 0.33 10^3/uL (0.1-0.8); Absolute Neutrophil Count 4.11 10^3/uL (1.2-6.7); Basophils % 0.4; Eosinophils % 0.6; HGB 15.4 g/dL (13.5-17.5); Immature Grans % 0.4; Lymphocytes % 14.1; MCH 31.8 pg (27.0-33.0); MCHC 36.7 % (32.0-36.0); MCV 87 fL (80-95); Monocytes % 6.3; Neutrophils % 78.2; Platelet Count 162 10^3/uL (130-400); RBC 4.85 10^6/uL (4.36-5.78); RDW 11.8 % (11.8-14.1); RDW-SD 37.4 fL; WBC 5.25 10^3/uL (4.4-10.8)
[2023-02-03 09:23] LABS: Bilirubin Negative (Negative); Blood Negative (Negative); Clarity Clear (Clear); Glucose Negative (Negative); Ketones Negative (Negative); Leukocyte Esterase Negative (Negative); Nitrite Negative (Negative); Specific Gravity 1.015 (1.005-1.025); Urobilinogen 0.2 mg/dL (Up to 0.2)
[2023-02-03 09:30] LABS: ALT 17 U/L (16-63); AST 13 U/L (15-37); Albumin 4.1 g/dL (3.4-5.0); Alkaline Phosphatase 28 U/L (46-116); Anion Gap 7.7 mmol/L (3-11); BUN 8 mg/dL (7-18); CO2 28.3 mmol/L (21.0-32.0); CREATININE 1.2 mg/dL (0.70-1.30); Calcium 8.8 mg/dL (8.5-10.1); Chloride 104 mmol/L (98-107); Estimated GFR 68.38 (mL/min/1.73m2); Glucose 137 mg/dL (74-106); Magnesium 2.1 mg/dL (1.8-2.4); Potassium 3.4 mmol/L (3.5-5.1); Sodium 140 mmol/L (136-145); Total Protein 7.6 g/dL (6.4-8.2)
[2023-02-03 11:13] VITALS: BP 177/74; PULSE 68; RESP 18; TEMP 37; O2SAT 95
[2023-02-03] MEDS: Potassium Chloride 20 MEQ TABCR PO (13:00)
[2023-02-03] MEDS: Citalopram 10 MG TAB 20 MG PO (13:31)
[2023-02-03 13:40] VITALS: BP 156/86; PULSE 64; RESP 18; O2SAT 98
--- NOTE | 2023-02-03 14:43 | NUR.NOTE ---
Nursing Note: Son questioning what patient was given while here. Patient having complaints. Son was wondering what side effects would be
--- NOTE | 2023-02-03 17:41 | PDOC.MHCN ---
Date of service: 02/03/23 Time of Service: 12:00 PHQ-9 Over the last 2 weeks, how often have you been bothered by any of the following problems? 1. Little interest or pleasure in doing things: several days 2. Feeling down, depressed, or hopeless: several days 3. Trouble falling or staying asleep, or sleeping too much: several days 4. Feeling tired or having little energy: not at all 5. Poor appetite or overeating: several days 6. Feeling bad about yourself - or that you are a failure or have let yourself and your family down: several days 7. Trouble concentrating on things, such as reading the newspaper or watching television: not at all 8. Moving or speaking so slowly that other people could have noticed? - Or the opposite - being so fidgety or restless that you have been moving around a lot more than usual: not at all 9. Thoughts that you would be better off or of hurting yourself in some way: not at all Total score: 5 Source: Developed by Drs. Calderon Patel, Jocelin Marks, Minor Peraza and colleagues, with an educational latesha from [employer]. Suicide Severity Rate CSSRS Have you wished you were or wished you could go to sleep and not wake up?: No Have you actually had any thoughts of killing yourself?: No CSSRS2 Have you been thinking about how you might do this?: No Have you had these thoughts and had some intention of acting on them?: No Have you started to work out or worked out the details of how to kill yourself? Do you intend to carry out this plan?: No CSSRS3 Have you ever done anything, started to do anything or prepared to do anything to end your life?: No CSSRS4 Was this within the past three months?: No Screening Score Total Score: 0 Screening: Negative Mental Health Emergency Note Release [facility] release signed:: Yes Reason for Visit In the last 2 weeks has the pt presented for ES prior to today?: No Non Suicidal Self Injury Current: No History: No Safety Risk/Harm to Self or Others Current Ideation to Harm Self or Others: No Risk: Does risk to harm exist?: No Risk: Low Risk Duty to warn indicated: No Asssessment/Mental Status Appearance: Unremarkable Attitude: Cooperative Behavior: Unremarkable Affect: Cogruent with mood Mood: Sad, Stressed and Depressed Thought process: Racing Hallucinations: No Delusions: No Attention: Unremarkable Perception: Not impaired Orientation: Fully orientated Memory: Intact Insight: Good Neurovegetative Symptoms Sleep: Decrease Appetitie: Decrease Interests: Decrease Energy: No change Libido: Not applicable Substance Use: Other (does not use substances) Drug Issues: Other Do you use nicotine?: No Have you used substances in the last 7 days?: No Additional Issues: Assaultive/Threatening Behavior: No Medical Concerns: No Client engaged in active self harm w/weapon: No Threatening to run away: No Child reported abuse/neglect: No Voluntarily presenting for services: Yes Domestic violence is a concern: No Extreme Psychosis or extreme behavior is present: No Impression Client presented at ER voluntarily. He was suffering from depression, racing thoughts, lack of sleep, and anxiety. He will work with his PCP. Resources Reosurces reviewed and given:: [facility] and [facility] Plan/Disposition Recommended Disposition: PCP/Office visit, [facility] Services [facility] Services: Therapy and Therapy. Plan: Client will be discharged with some medication to relax an be able to sleep and will check in daily with ES by phone Reports/communication Outcome discussed with: ED/Personnel
== END 2023-02-03 13:41 | disposition home or self-care (01) ==
PROVIDERS: Emergency Provider Student in an Organized Health Care Education/Training Program; PCP Family Medicine
DX: F32.A Depression, unspecified (principal); F41.9 Anxiety disorder, unspecified; E87.6 Hypokalemia
CPT/HCPCS: 36415; 80053; 99283; 81003; 83735; 84443; 85025

== ENCOUNTER 2023-02-03 15:28 | Emergency (ER) | payer MEDICAID, SELFPAY ==
--- NOTE | 2023-02-03 15:15 | RT.EKG_ITS ---
APPROVED REPORT Exam: Resting ECG Reason for Exam: near syncope Patient Location: E HR:57 bpm ECG Measurements Heart Rate 57 AXIS MD 185 P 62 QRSd 100 QRS -84 QT 441 T 54 QTc 431 Conclusion Sinus bradycardia...rate< 60 Probable left atrial enlargement...P >50mS, <-0.10mV V1 Incomplete RBBB and LAFB...axis(240,-40), S>R II III aVF
[2023-02-03 15:27] VITALS: BP 146/87; PULSE 60; RESP 16; TEMP 36.7; O2SAT 98
[2023-02-03 15:31] VITALS: RESP 16
--- NOTE | 2023-02-03 16:17 | W.ED.GENAD ---
Discharge Plan Disposition Patient Disposition: Home Condition: Stable Discharge Details Clinical Impression: Syncope, Heat exposure, Sleep deficient Primary Care Provider: Samuel Morgan ED Provider: Agustin Ann Home Meds and New Rx's Prescriptions: Continued fluticasone propionate 50 mcg/actuation spray,suspension 2 spray RAYRAY DAILY hydrochlorothiazide 25 mg tablet 12.5 mg PO DAILY lisinopril 10 mg tablet 10 mg PO DAILY citalopram [Celexa] 10 mg tablet 20 mg PO DAILY Qty: 14 0RF Discharge Instructions Instructions: Syncope (ED) Additional Instructions: Please rest at home inside in a cool environment today. No exertional activities. Please contact your primary care physician to arrange follow-up as discussed earlier today on discharge. Be sure to discuss this episode with your primary care physician. Return to the ER immediately for any worsening or new concerning symptoms. Referrals: Samuel Morgan MD [Primary Care Provider] - Discharge Data Discharge Date/Time-TO BE ENTERED AT DEPARTURE: 02/03/23 16:33 Medical Decision Making 62-year-old male recently seen for depression, poor sleep, poor appetite and intake, returns after brief syncopal episode. Patient had no preceding symptoms. He was resting in the heat. He has not had much to eat or drink over the past few days and has not had adequate sleep. Patient is hemodynamically stable. I considered arrhythmia. EKG was reviewed and interpreted by me: Please report, nondiagnostic. No QT prolongation. Screening labs were obtained obtained earlier today during prior ED visit. I reviewed these and no significant electrolyte abnormalities. Plan for increased oral rehydration and rest in cool environment today. Disposition decision was made weighing the risks and benefits of hospitalization versus outpatient treatment, the risk for further decompensation, and the patient's wishes. The patient was stable and requested discharge. Prior to discharge, my usual and customary return precautions were reviewed with the patient - this included follow-up instructions and reason to return to the emergency department if condition worsens, does not improve as expected, or other new concerns arise. HPI General Mode of arrival: EMS. Date/Time Provider Initiated Documentation: 02/03/23 15:44. Limitations to Documentation: no limitations. Information obtained by: patient. HPI Narrative: 62-year-old male recently seen for depression, poor sleep, poor appetite and poor intake. He was seen by crisis team and safety plan was established. He was initiated on SSRI and discharged to follow-up with PCP and [facility] services, went home and was resting outside in the heat, stood up and experienced near syncopal episode. He was assisted to the ground. Patient does note he may have lost consciousness briefly. Symptoms have since resolved. He feels quite well at this time. No headache. No palpitations. No chest pain. No shortness of breath. No abdominal pain. No focal weakness or numbness. Related Data Home Medications Medication Instructions Recorded Confirmed fluticasone propionate 50 2 spray intranasal DAILY 09/19/19 02/03/23 mcg/actuation nasal spray,suspension hydrochlorothiazide 25 mg tablet 12.5 mg PO DAILY 02/25/21 02/03/23 lisinopril 10 mg tablet 10 mg PO DAILY 02/25/21 02/03/23 citalopram 10 mg tablet (Celexa) 20 mg PO DAILY #14 tabs 02/03/23 02/03/23 Previous Rx's Medication Instructions Recorded citalopram 10 mg tablet (Celexa) 20 mg PO DAILY #14 tabs 02/03/23 Allergies Allergy/AdvReac Type Severity Reaction Status Date / Time penicillin V Allergy Mild Verified 02/03/23 15:30 General Stated Complaint: [id number] KVNG: 3 Review of Systems All systems reviewed & are unremarkable except as noted in HPI and below Constitutional Constitutional: Denies fever(s) Cardiovascular Cardiovascular: Reports as per HPI, Denies chest pain and Denies dyspnea Respiratory Respiratory: Denies dyspnea PFSH All Active Problems Depression (Chronic) Anxiety (Chronic) Hypokalemia (Acute) Syncope (Chronic) Heat exposure (Acute) Sleep deficient (Acute) Internal derangement of right knee (Acute) Bilateral sensorineural hearing loss (Acute) Tendinopathy of patella (Acute) Iliotibial band syndrome, left leg (Acute) Nasal polyp (Acute) Deviated nasal septum (Acute) Allergic rhinitis (Acute) HTN (hypertension) (Chronic) Flushing (Acute) Sleep apnea (Acute) Chest pain, atypical (Acute) Neck pain (Acute) Seborrheic keratosis (Acute) Preventative health care (Acute) Knee joint pain (Acute) Ventral hernia (Acute) Medical History Hearing loss Shoulder pain Social History Smoking/Tobacco Use Status: Former Tobacco Use Smoking risk assessment performed?: Yes Alcohol Intake: current Alcohol Intake frequency: a few times a month Alcohol type: beer and wine Drug use: Never Substance use type: does not use Housing: house Current gender identity: male Do you feel safe at home: Yes Do you feel safe in your relationship?: Yes Exam Const General: cooperative and no acute distress HENMT Mouth: moist mucous membranes Eyes Conjunctivae: normal conjunctivae EOM: EOM intact bilaterally Neck Neck: trachea midline and supple Resp Auscultation: clear to auscultation bilaterally, no rales, no rhonchi and no wheezes Cardio Rate: regular rate and not tachycardic Rhythm: regular rhythm GI Palpation: soft, not firm, no guarding, no masses, not rigid and nontender Skin General skin exam: no rashes or lesions noted Neuro General: patient alert, patient awake, patient oriented x3 and tone normal Cranial Nerves: CN's II-XI intact bilaterally Cognition: normal cognition Speech: speech normal Gait: normal gait Motor: muscle tone normal throughout and strength 5/5 throughout Sensory Exam: no sensory deficits noted Extrem General: no pedal edema, no calf tenderness and no edema Psych Appearance: grossly normal Mental Status: mental status grossly normal Speech and Movement: speech and movement normal Course Vital Signs Vital signs: Vital Signs Temperature 36.7 C 02/03/23 15:27 Pulse 60 02/03/23 15:27 Respiratory Rate 16 02/03/23 15:27 Blood Pressure 146/87 H 02/03/23 15:27 Pulse Oximetry 98 02/03/23 15:27 Temperature 36.7 C 02/03/23 15:27 Temperature Source Skin 02/03/23 15:27 Pulse 60 02/03/23 15:27 Respiratory Rate 16 02/03/23 15:31 Respiratory Effort Normal, Non-Labored 02/03/23 15:31 Respiratory Depth Normal 02/03/23 15:31 Respiratory Pattern Normal 02/03/23 15:31 Blood Pressure 146/87 H 02/03/23 15:27 Blood Pressure Position Sitting 02/03/23 15:27 Pulse Oximetry 98 02/03/23 15:27 Oxygen Delivery Method Room Air 02/03/23 15:27 Oxygen Flow Rate 0 02/03/23 15:27 Pain Level 0 02/03/23 15:27 PAWSS Have you Been Recently Intoxicated or Drunk Within the Last 30 days?: No Have you Ever Experienced Previous Episodes of Alcohol Withdrawal?: No Have you ever Experienced Withdrawal Seizures?: No Have you ever Experienced Delirium Tremens(DT)s?: No Have you ever undergone Alcohol Rehabilitation Treatment (i.e, inpt ot outpatient treatment programs)?: No Have you ever Experienced Blackouts?: No Have you ever Combined Alcohol with other Downers within the last 90 days?: No Have you ever Combined Alcohol with any other Substance of Abuse during the last 90 days?: No Positive Blood Alcohol level on Presentation? [PCS.BAL]: No Evidence of Increased Autonomic Activity (i.e. HR>120, tremor, sweating, agitation, nausea)?: No Result: 0
[2023-02-03 16:31] VITALS: BP 163/89; PULSE 61; RESP 16; O2SAT 98
== END 2023-02-03 16:33 | disposition home or self-care (01) ==
PROVIDERS: Emergency Provider Student in an Organized Health Care Education/Training Program; PCP Family Medicine
DX: R55 Syncope and collapse (principal); T67.9XXA Effect of heat and light, unspecified, initial encounter; Z72.820 Sleep deprivation
CPT/HCPCS: 93005; 99283; 93010

== ENCOUNTER → 2023-05-19 01:28 | Outpatient (CLI) | payer MEDICAID, SELFPAY ==
--- NOTE | 2023-05-19 13:45 | DI.US_ITS ---
Exam(s) US SCROTUM EXAM: US SCROTUM CLINICAL HISTORY: EPIDIDYMAL MASS, N50.9 TECHNIQUE: Ultrasound of the testes performed using grayscale, color, and Doppler imaging. COMPARISON: No exams were available for comparison FINDINGS: Both testicles exhibit normal size with no intratesticular masses and normal symmetrical color flow t o both testicles. There is symmetric tiger striping evident in both testicles incidentally noted. There is small bilateral hydroceles. No varicoceles. On the left side there is a large epididymal head cyst corresponding to the palpable finding, this me asuring approximately 3.5 x 2.7 x 3.6 cm. Adjacent to it is a smaller epididymal head cyst measuring 1.4 x 0.8 x 0.6 cm. There is a small hydrocele on the left side. On the right side the epididymal head appears unremarkable with no epididymal head cysts. IMPRESSION: 1. No evidence of testicular mass nor testicular torsion. 2. Large left-sided epididymal head cyst-spermatocele measuring 3.5 x 2.7 x 3.6 cm. An adjacent see lateral smaller 1.4 x 0.8 x 0.6 cm spermatocele is also evident. 3. Small bilateral hydroceles. There are no varicoceles evident. DATA REPOSITORY:
== END ==
PROVIDERS: PCP Family Medicine; Visit Provider Family Medicine
DX: N50.89 Other specified disorders of the male genital organs (principal)
CPT/HCPCS: 76870

== ENCOUNTER 2023-07-09 04:32 | Outpatient (CLI) | payer MEDICAID, SELFPAY ==
--- OUTSIDE RECORDS SUMMARY | 2023-07-09 04:34 | XMS_ITS | Patient Health Record ---
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 Name Role Phone SALAS ENGLISH MD Primary Care Provider Unavail able Tanner Campo [phone] ALLERGIES Allergen (clinical drug ingredient) Drug/Non Drug Allergy documented on EMR Reaction Allergy Type Onset Date Status penicillin V Penicillin V Potassium Unknown Drug Allergy Active REASON FOR REFERRAL No Information MEDICATIONS Medication SIG (Take, Route, Frequency, Duration) Notes Start Date End Date Status hydroCHLOROthiazide 25 MG 1 tablet in e morning Orally Once a day for 30 day(s) Active Lisinopril 10 MG 1 tablet Orally Once a day for 30 day(s) Active Fluticasone Propionate 50 MCG/DOSE 1 spray in each nostril Nasally Once a day for 30 day(s) Active SOCIAL HISTORY Tobacco Use: Social History Observation Description Date Details (start date - stop date) Never Smoker NA - NA Sex Assigned At : Social History Observation Description Sex Assigned At Unknown SMOKING Question Answer Notes Are you a: nonsmoker PROBLEMS Problem Type ICD Code Onset Dates Problem Status W/U Status Risk SNOMED Code Notes Problem Sleep apnea (G47.30) Active confirmed Sleep apnea (05309444) Problem Abdominal pain (R10.9) Active confirmed Abdominal pain (17057602) Problem Foot pain, left (M79.672) Active confirmed Pain in limb (07994267) Problem HTN (hypertension ) (I10) Active confirmed Hypertension (88730181) Problem Allergic rhinitis (J30.9) Active confirmed Allergic rhinit is (23561222) Problem Ventral hernia (K43.9) Active confirmed Ventral hernia (013305000) Problem Knee pain, left (M25.562) Active confirmed Arthralgia of t he lower leg (217825182) Problem Deviated nasal septum (J34.2) Active confirmed Deviated nasal septum (840198088) Problem Chest pain, atypical (R07.89) Active confirmed Chest pain (95175605) Problem Nasal polyp (J33.9) Active confirmed Nasal polyp (56037519) Problem Iliotibial band syndrome, left leg (M76.32) Active confirmed Enthesopathy of hip region (80771957) Problem Flushing (R23.2) Active confirmed Flushing (29705636) Problem Neuritis of left foot (G57.92) Active confirmed 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 PLAN OF TREATMENT No Information Insurance Providers Payer Name Payer Address Payer Phone Subscriber Number Group Number Insured Name Patient Relationship to Insured Coverage Start Date Coverage End Date [place] [employer] [employer] [place], [place] [id number] SHEILA AGUILAR Self - patient is the insured SELF PAY [place] [address] [place] [address] SHEILA AGUILAR Self - patient is the insured MEDICAL (GENERAL) HISTORY Medical History History ICD Code Iliotibial band syndrome, left leg M76.3 2 Abdominal pain R10.9 Ventral hernia K43.9 Knee pain, left M25.562 Chest pain, atypical R07.89 Sleep apnea G47.30 Flushing R23.2 HTN (hypertension) I10 Allergic rhinitis J30.9 Deviated nasal septum J34.2 Nasal polyp J33.9 Surgical History Surgery Date(Month/Year)
[2023-07-09 13:18] LABS: Abs Immature Grans 0.01 10^3/uL (0.0-0.06); Absolute Basophil Count 0.03 10^3/uL (0.0-0.2); Absolute Eosinophil Count 0.18 10^3/uL (0.0-0.7); Absolute Neutrophil Count 3.74 10^3/uL (1.2-6.7); Basophils % 0.5; Eosinophils % 3.3; Immature Grans % 0.2; MCH 31.6 pg (27.0-33.0); MCHC 35.7 % (32.0-36.0); MCV 88 fL (80-95); MPV 9.7 fL (8.0-11.0); Monocytes % 5.5; Neutrophils % 68.5; Platelet Count 160 10^3/uL (130-400); RBC 4.75 10^6/uL (4.36-5.78); RDW 11.9 % (11.8-14.1); RDW-SD 38.5 fL; WBC 5.46 10^3/uL (4.4-10.8)
[2023-07-09 13:28] LABS: Hemoglobin A1C 5.1 % (<5.7)
[2023-07-09 13:46] LABS: D-Dimer 274 ng/mlFEU (<500)
[2023-07-09 14:20] LABS: ALT 21 U/L (16-63); AST 12 U/L (15-37); Albumin 3.8 g/dL (3.4-5.0); Alkaline Phosphatase 26 U/L (46-116); Anion Gap 5.8 mmol/L (3-11); BUN 12 mg/dL (7-18); Bilirubin, Total 0.7 mg/dL (0.2-1.0); CO2 32.2 mmol/L (21.0-32.0); CREATININE 1.1 mg/dL (0.70-1.30); Calculated LDL 126 mg/dL (<100); Chloride 102 mmol/L (98-107); Cholesterol 205 mg/dL (<200); Estimated GFR 75.43 (mL/min/1.73m2); Glucose 92 mg/dL (74-106); HDL Cholesterol 56 mg/dL (40-60); Potassium 3.6 mmol/L (3.5-5.1); Sodium 140 mmol/L (136-145); Total Protein 6.9 g/dL (6.4-8.2); Triglyceride 118 mg/dL (<150)
[2023-07-09 14:31] LABS: Creatine Kinase 98 U/L (39-308)
[2023-07-10 09:40] LABS: Homocysteine 11.9 umol/L (5.0-13.9)
[2023-07-10 20:24] LABS: Apolipoprotein A1 154 mg/dL (>=120)
[2023-07-11 09:54] LABS: Apolipoprotein B, S 102 mg/dL
== END 2023-07-09 04:33 | disposition home or self-care (01) ==
LOC: LBO 04:32
PROVIDERS: PCP Family Medicine; Visit Provider Naturopath
DX: I10 Essential (primary) hypertension (principal); R07.9 Chest pain, unspecified; E78.5 Hyperlipidemia, unspecified
CPT/HCPCS: 36415; 80053; 80061; 82172; 82550; 83090; 83036; 85025; 85379

== ENCOUNTER → 2023-07-16 01:12 | Outpatient (CLI) | payer MEDICAID, SELFPAY ==
[2023-07-16] MEDS: Gadoterate meglumine 20 ML SYRINGE 16 ML IVP (12:42)
[2023-07-16] MEDS: Normal Saline Flush 10 ML SYR IVP (12:42)
--- NOTE | 2023-07-16 13:15 | DI.MRI_ITS ---
Exam(s) MR IAC BRAIN WO/W EXAM: MR IAC BRAIN WO/W CLINICAL HISTORY: Asymmetrical hearing loss, vertigo,tinnitus-right,h90.3,r42,h93.11. TECHNIQUE: Multiplanar multisequence MRI of the brain and internal auditory canals was performed. CONTRAST MATERIAL: IV Contrast: 16 mL of Dotarem contrast administered. COMPARISON: No exams were available for comparison FINDINGS: VENTRICLES AND EXTRA AXIAL SPACES: Normal in size and morphology for the patient's age. HEMORRHAGE: None. CEREBRAL PARENCHYMA: No focus of restricted diffusion to suggest acute infarct. No space-occupying le ky identified. There are multiple foci of hyperintense signal seen in the white matter most consist ent with small vessel ischemic disease. MIDLINE SHIFT: None. BRAINSTEM/CEREBELLUM: Normal. CALVARIUM: Normal. ENHANCEMENT: No suspicious enhancement identified. VISUALIZED PARANASAL SINUSES/MASTOIDS: There are masses seen in the nasal passageways. The largest i s seen posteriorly on the left and measures 2.5 x 1.1 cm. There also multiple masses seen within the maxillary sinuses ethmoid air cells and left sphenoid sinus likely reflecting polyps. [place]: Normal flow void. [place]: Unremarkable. IAC/CP ANGLE: The internal auditory canals are within normal limits. The cerebellar pontine angles ar e unremarkable. No enhancing lesions are seen. Visualized portion of the facial nerves appear within normal limits. OTHER FINDINGS: None. IMPRESSION: 1. No evidence of a mass or enhancing lesion in the internal auditory canals or cerebellopontine angl es. 2. No evidence of an intracranial mass or acute infarct. 3. Multiple masses seen in the visualized paranasal sinuses and nasal passageways likely reflecting n alber polyposis. ENT consult should be considered for further evaluation. Unexpected findings DATA REPOSITORY:
== END ==
PROVIDERS: PCP Family Medicine; Visit Provider Registered Nurse Maternal Newborn
DX: H90.3 Sensorineural hearing loss, bilateral (principal); R42 Dizziness and giddiness; H93.11 Tinnitus, right ear
CPT/HCPCS: 70553

== ENCOUNTER → 2023-09-04 01:51 | Outpatient (CLI) | payer MEDICAID, SELFPAY ==
--- NOTE | 2023-09-04 | DI.US_ITS ---
Exam(s) US CAROTID EXAM: US CAROTID CLINICAL HISTORY: CAROTID BRUIT, R09.89, SPECIFIED SYMPTOMS/SIGNS INVOLVING CIRCULATORY/RESP. TECHNIQUE: Ultrasound carotids performed using grayscale, color-flow, and spectral Doppler imaging. COMPARISON: Brain MRI 07/16/2023 reviewed FINDINGS: CAROTID ARTERIES: There is minimal if any significant plaque in the common carotid arteries, carotid bulbs and proximal ICAs. There are no elevated peak systolic nor end-diastolic velocities in the carotid arteries in t he neck. VERTEBRAL ARTERIES: Antegrade flow demonstrated in both vertebral arteries. Measurements: R Bulb: 50.7cm/s PS / 13.2cm/s ED R CCA: 69.1cm/s PS / 13.7cm/s ED R ECA: 82.4cm/s PS / 3.4cm/s ED R ICA Prox: 72cm/s PS / 21.4cm/s ED R ICA Mid: 73.7cm/s PS / 21.4cm/s ED R ICA Distal: 70.8cm/s PS /19.3cm/s ED R Vert: 44.5cm/s PS / 11.1cm/s ED R SVR: 1.1 R DVR: 1.6 L Bulb: 61.4cm/s PS / 9.8cm/s ED L CCA: 70.2cm/s PS / 12.6cm/s ED L ECA: 92.4cm/s PS / 2.7cm/s ED L ICA Prox: 84.2cm/s PS / 19.2cm/s ED L ICA Mid: 97.6cm/s PS / 24.3cm/s ED L ICA Distal: 80.7cm/s PS / 20.1cm/s ED L Vert: 46.3cm/s PS / 11.2cm/s ED L SVR: 1.4 L DVR: 1.9 IMPRESSION: There is no significant atherosclerotic narrowing of the carotid arteries in the neck. Antegrade flow was demonstrated in both vertebral arteries in the neck. Criteria for Carotid Stenosis: Normal: ICA PSV <125 cm/s no plaque or intimal thickening is visible. <50% stenosis: ICA PSV <125 cm/s and plaque or intimal thickening is visible. 50-69% stenosis: ICA PSV is 125-250 cm/s and plaque is visible. >70% stenosis to near occlusion: ICA PSV >250 cm/s with visible plaque and luminal narrowing. DATA REPOSITORY:
--- OUTSIDE RECORDS SUMMARY | 2023-09-04 01:53 | XMS_ITS | Patient Health Record ---
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 Name Role Phone SALAS ENGLISH MD Primary Care Provider Unavail able Tanner Campo [phone] ALLERGIES Allergen (clinical drug ingredient) Drug/Non Drug [...] Sleep apnea (G47.30) Active confirmed Sleep apnea (90993357) Problem Abdominal pain (R10.9) Active confirmed Abdominal pain (74426829) Problem Foot pain, left (M79.672) Active confirmed Pain in limb (91613442) Problem HTN (hypertension ) (I10) Active confirmed Hypertension (61872277) Problem Allergic rhinitis (J30.9) Active confirmed Allergic rhinit is (60847249) Problem Ventral hernia (K43.9) Active confirmed Ventral hernia (162736240) Problem Knee pain, left (M25.562) Active confirmed Arthralgia of t he lower leg (055977848) Problem Deviated nasal septum (J34.2) Active confirmed Deviated nasal septum (684097116) Problem Chest pain, atypical (R07.89) Active confirmed Chest pain (03114427) Problem Nasal polyp (J33.9) Active confirmed Nasal polyp (34612067) Problem Iliotibial band syndrome, left leg (M76.32) Active confirmed Enthesopathy of hip region (44103719) Problem Flushing (R23.2) Active confirmed Flushing (69366584) Problem Neuritis of left foot (G57.92) Active confirmed Mononeuropathy of lower limb (748993024) Secondary to pressure PLAN OF TREATMENT No Information Insurance Providers Payer Name Payer Address Payer Phone Subscriber Number Group Number Insured Name Patient Relationship to Insured Coverage Start Date Coverage End Date [place] [employer] [employer] [place], [place] [id number] SHEILA AGUILAR Self - patient is the insured SELF PAY NO INS[place] [address] SHEILA AGUILAR Self - patient is the [...]
== END ==
PROVIDERS: PCP Family Medicine; Visit Provider Naturopath
DX: R09.89 Other specified symptoms and signs involving the circulatory and respiratory systems (principal)
CPT/HCPCS: 93880

== ENCOUNTER → 2023-09-16 01:21 | Outpatient (CLI) | payer MEDICAID, SELFPAY ==
--- OUTSIDE RECORDS SUMMARY | 2023-09-16 01:23 | XMS_ITS | Patient Health Record ---
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 Name Role Phone SALAS ENGLISH MD Primary Care Provider Unavail able Tanner Campo [phone] ALLERGIES Allergen (clinical drug ingredient) Drug/Non Drug [...] Sleep apnea (G47.30) Active confirmed Sleep apnea (71670159) Problem Abdominal pain (R10.9) Active confirmed Abdominal pain (33339046) Problem Foot pain, left (M79.672) Active confirmed Pain in limb (39607255) Problem HTN (hypertension ) (I10) Active confirmed Hypertension (72819308) Problem Allergic rhinitis (J30.9) Active confirmed Allergic rhinit is (71775210) Problem Ventral hernia (K43.9) Active confirmed Ventral hernia (486175698) Problem Knee pain, left (M25.562) Active confirmed Arthralgia of t he lower leg (348988134) Problem Deviated nasal septum (J34.2) Active confirmed Deviated nasal septum (704871363) Problem Chest pain, atypical (R07.89) Active confirmed Chest pain (58196311) Problem Nasal polyp (J33.9) Active confirmed Nasal polyp (90461282) Problem Iliotibial band syndrome, left leg (M76.32) Active confirmed Enthesopathy of hip region (25366039) Problem Flushing (R23.2) Active confirmed Flushing (75347126) Problem Neuritis of left foot (G57.92) Active confirmed Mononeuropathy of lower limb (537391496) Secondary to pressure PLAN OF TREATMENT No Information Insurance Providers Payer Name Payer Address Payer Phone Subscriber Number Group Number Insured Name Patient Relationship to Insured Coverage Start Date Coverage End Date [place] [employer] [place], [place] [id number] SHEILA AGUILAR Self - patient is the insured SELF PAY [place] [address] [address] SHEILA AGUILAR Self - patient is the [...]
--- NOTE | 2023-09-16 08:30 | DI.RAD_ITS ---
Exam(s) XR FOOT LT COMPLETE EXAM: XR FOOT LT COMPLETE CLINICAL HISTORY: Left heel and foot pain,m79.672. TECHNIQUE: 2D digital imaging was performed of the left foot. Three images were obtained. AP, obli que and lateral views were obtained. COMPARISON: No exams were available for comparison FINDINGS: BONES: No acute fracture is present. No bony destructive lesion is seen. There is a small plantar diane caneal spur. JOINTS: No dislocation present. The joint spaces are well maintained. SOFT TISSUE: Vascular calcifications are present. IMPRESSION: Small plantar calcaneal spur. DATA REPOSITORY: RADIATION DOSE DELIVERED:
== END ==
PROVIDERS: PCP Family Medicine; Visit Provider Podiatrist
DX: M79.672 Pain in left foot (principal)
CPT/HCPCS: 73630

== ENCOUNTER 2023-11-13 23:13 | Inpatient (IN) | payer BC, SELFPAY ==
[2023-11-13] VITALS (8 sets, daily range): BP systolic 210–249; BP diastolic 93–112; PULSE 62–70; RESP 12–17; TEMP 36.7; O2SAT 96–98
--- NOTE | 2023-11-13 23:15 | RT.EKG_ITS ---
APPROVED REPORT Exam: Resting ECG Reason for Exam: sob Patient Location: E HR:63 bpm ECG Measurements Heart Rate 63 AXIS VA 186 P 50 QRSd 107 QRS -68 QT 443 T 37 QTc 453 Conclusion Sinus rhythm...normal P axis, V-rate 60- 99 Probable left atrial enlargement...P >50mS, <-0.10mV V1 Incomplete RBBB and LAFB...axis(240,-40), S>R II III aVF Physician: no stemi
[2023-11-14] VITALS (48 sets, daily range): BP systolic 149–218; BP diastolic 65–109; PULSE 55–70; RESP 9–18; TEMP 36.6–36.8; O2SAT 94–97
[2023-11-14 00:11] LABS: Abs Immature Grans 0.01 10^3/uL (0.0-0.06); Absolute Basophil Count 0.04 10^3/uL (0.0-0.2); Absolute Eosinophil Count 0.19 10^3/uL (0.0-0.7); Absolute Lymphocyte Count 1.25 10^3/uL (1.2-3.4); Absolute Monocyte Count 0.45 10^3/uL (0.1-0.8); Absolute Neutrophil Count 3.82 10^3/uL (1.2-6.7); Basophils % 0.7; Eosinophils % 3.3; HCT 40.8 % (40.0-50.0); HGB 14.9 g/dL (13.5-17.5); Immature Grans % 0.2; Lymphocytes % 21.7; MCH 32.5 pg (27.0-33.0); MCHC 36.5 % (32.0-36.0); MCV 89 fL (80-95); MPV 10.2 fL (8.0-11.0); Monocytes % 7.8; Neutrophils % 66.3; Platelet Count 141 10^3/uL (130-400); RBC 4.59 10^6/uL (4.36-5.78); RDW-SD 38.9 fL; WBC 5.76 10^3/uL (4.4-10.8)
--- NOTE | 2023-11-14 00:24 | ED.GENADUL_ITS ---
Discharge Plan Disposition Patient Disposition: Admit to [facility] Condition: Stable Discharge Details Clinical Impression: Acute kidney injury, Hypertensive emergency Primary Care Provider: Samuel Morgan ED Provider: Mariusz Henriquez Home Meds and New Rx's Prescriptions: No Action fluticasone propionate 50 mcg/actuation spray,suspension 2 spray RAYRAY DAILY hydrochlorothiazide 25 mg tablet 12.5 mg PO DAILY lisinopril 10 mg tablet 10 mg PO DAILY citalopram [Celexa] 10 mg tablet 20 mg PO DAILY Qty: 14 0RF propranolol 20 mg tablet 20 mg PO PRN Patient Comments: TAKE ONE TABLET BY MOUTH EVERY DAY NEEDED FOR ANXIETY/HYERPTENSION HPI General Date/Time Provider Initiated Documentation: 11/13/23 23:31 . HPI Narrative: This is a 63-year-old male with a past medical history of hypertension, previous depression which is now resolved, presents today for evaluation of elevated blood pressure. Patient states that over the last year he has had interval spikes in his blood pressure. This will usually occur once per month, it is usually associated with an achiness/bruise sensation in his left arm. It can last anywhere from a few hours to a few days. It does not seem to be brought on independently by caffeine, activity, or other specific inciting event. He does drink tea in the afternoon and usually a decaffeinated coffee later in the day. Over the last 2 to 3 months they have become more frequent. He has been placed on lisinopril and hydrochlorothiazide without any significant improvement in the frequency of the symptoms. He has normal blood pressure on any given days in the 110s systolic, but these random episodes seem to be quite elevated otherwise. He has recently been given a propranolol by his primary care provider to be taken on a as needed basis, but this is also not helped his symptoms. In addition to this he has been seeing a heating equipment installer recently, and has been started on few different herbal components, and he states that each of these do not seem to be effective and have not changed his symptoms. He is not currently taking them now. Tonight he was at the movie the a[employer] and just as the movie was beginning the symptoms occurred again. He went home and checked his blood pressure and it was noted to be in the 230s systolic which was higher than it has recently been. Normally it runs in the 180s to 190s during these episodes. He denies any chest pain or shortness of breath. He does admit to feeling occasional palpitations which have resolved. He denies any significant arm pain at this time. He denies any neck discomfort. No other complaints at this time. No other modifying factors. He denies any IV or illicit drug use. He does have a calcaneal spur and he does note that for the last 2 to 3 months he has not been running because of this. He is usually an avid runner. He has gained some weight recently but still has been using his elliptical quite frequently. Additionally review of prior labs indicate that on 01/12/2023 he had a very thorough evaluation by his primary care provider which demonstrated normal urine metanephrines, and an otherwise benign workup at that time. Related Data Home Medications Medication Instructions Recorded Confirmed fluticasone propionate 50 2 spray intranasal DAILY 09/19/19 11/13/23 mcg/actuation nasal spray,suspension hydrochlorothiazide 25 mg tablet 12.5 mg PO DAILY 02/25/21 11/13/23 lisinopril 10 mg tablet 10 mg PO DAILY 02/25/21 11/13/23 citalopram 10 mg tablet (Celexa) 20 mg (2 x 10 mg) PO DAILY #14 tabs 02/03/23 11/13/23 propranolol 20 mg tablet 20 mg PO PRN 11/13/23 11/13/23 Previous Rx's Medication Instructions Recorded citalopram 10 mg tablet (Celexa) 20 mg (2 x 10 mg) PO DAILY #14 tabs 02/03/23 Allergies Allergy/AdvReac Type Severity Reaction Status Date / Time penicillin V Allergy Mild Verified 06/16/23 15:15 General Stated Complaint: Palpitatns KVNG: 3 Review of Systems All systems reviewed & are unremarkable except as noted in HPI and below Exam Narrative Exam Narrative: 1.Const: Well-nourished, Well-developed, appearing stated age 2.Eyes: PERRL, no conjunctival injection, and symmetrical lids. 3.ENT: Atraumatic external nose and ears. Moist MM. Neck: Symmetric, trachea midline, No thyromegaly. 4.CVS: +S1/S2, No murmurs or gallops. Peripheral pulses 2+ and equal in all extremities. Brisk capillary refill in all extremities. 5.RESP: Unlabored respiratory effort. Clear to auscultation bilaterally. No wheezes rales or rhonchi 6.GI: Soft, Nontender/Nondistended, No hepatosplenomegaly. No guarding or rebound. 7.MSK: Normocephalic/Atraumatic, Extremities w/o deformity or ttp No cyanosis or clubbing, Normal movement of all extremities. No pitting edema. No calf tenderness. 8.Skin: Warm, Dry. No rashes or lesions. 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 Sensation grossly intact, no focal neurologic deficits. 10.Psych: (AAO) x3. Appropriate mood and affect Course Vital Signs Vital signs: Vital Signs Temperature 36.7 C 11/13/23 23:17 Pulse 70 11/13/23 23:17 Respiratory Rate 16 11/13/23 23:17 Blood Pressure 249/112 H 11/13/23 23:17 Pulse Oximetry 98 11/13/23 23:17 Temperature 36.7 C 11/13/23 23:17 Temperature Source Skin 11/13/23 23:17 Pulse 70 11/13/23 23:17 Respiratory Rate 16 11/13/23 23:17 Respiratory Effort Normal, Non-Labored 11/13/23 23:24 Blood Pressure 249/112 H 11/13/23 23:17 Blood Pressure Position Sitting 11/13/23 23:17 Pulse Oximetry 98 11/13/23 23:17 Oxygen Delivery Method Room Air 11/13/23 23:17 Oxygen Flow Rate 0 11/13/23 23:17 Pain Level 0 11/13/23 23:17 Lab/Test Results Lab/Test Results: Laboratory Tests Range/Units 11/13/23 00:00 WBC (4.4-10.8) 10^3/uL 5.76 RBC (4.36-5.78) 10^6/uL 4.59 Hgb (13.5-17.5) g/dL 14.9 Hct (40.0-50.0) % 40.8 MCV (80-95) fL 89 MCH (27.0-33.0) pg 32.5 MCHC (32.0-36.0) % 36.5 H RDW (11.8-14.1) % 12.0 Plt Count (130-400) 10^3/uL 141 MPV (8.0-11.0) fL 10.2 Immature Gran % 0.2 Neutrophils % 66.3 Lymphocytes % 21.7 Monocytes % 7.8 Eosinophils % 3.3 Basophils % 0.7 Nucleated RBC % (0.0-0.3) % 0.0 Absolute Neutrophils (1.2-6.7) 10^3/uL 3.82 Absolute Lymphocytes (1.2-3.4) 10^3/uL 1.25 Absolute Monocytes (0.1-0.8) 10^3/uL 0.45 Absolute Eosinophils (0.0-0.7) 10^3/uL 0.19 Absolute Basophils (0.0-0.2) 10^3/uL 0.04 Medical Decision Making This is a 63-year-old male with a past medical history of hypertension, previous depression which is now resolved, presents today for evaluation of elevated blood pressure. Patient states that over the last year he has had interval spikes in his blood pressure. This will usually occur once per month, it is usually associated with an achiness/bruise sensation in his left arm. It can last anywhere from a few hours to a few days. It does not seem to be brought on independently by caffeine, activity, or other specific inciting event. He does drink tea in the afternoon and usually a decaffeinated coffee later in the day. Over the last 2 to 3 months they have become more frequent. He has been placed on lisinopril and hydrochlorothiazide without any significant improvement in the frequency of the symptoms. He has normal blood pressure on any given days in the 110s systolic, but these random episodes seem to be quite elevated otherwise. He has recently been given a propranolol by his primary care provider to be taken on a as needed basis, but this is also not helped his symptoms. In addition to this he has been seeing a heating equipment installer recently, and has been started on few different herbal components, and he states that each of these do not seem to be effective and have not changed his symptoms. He is not currently taking them now. Tonight he was at the movie theater and just as the movie was beginning the symptoms occurred again. He went home and checked his blood pressure and it was noted to be in the 230s systolic which was higher than it has recently been. Normally it runs in the 180s to 190s during these episodes. He denies any chest pain or shortness of breath. He does admit to feeling occasional palpitations which have resolved. He denies any significant arm pain at this time. He denies any neck discomfort. No other complaints at this time. No other modifying factors. He denies any IV or illicit drug use. He does have a calcaneal spur and he does note that for the last 2 to 3 months he has not been running because of this. He is usually an avid runner. He has gained some weight recently but still has been using his elliptical quite frequently. Additionally review of prior labs indicate that on 01/12/2023 he had a very thorough evaluation by his primary care provider which demonstrated normal urine metanephrines, and an otherwise benign workup at that time. Exam demonstrates well-appearing male, heart rate normal, blood pressure is notably elevated at 249/112. He has no chest pain or shortness of breath at all at this time. EKG shows no elevation of the ST segments, no significant depression or acute changes. Uncertain as to the cause of his symptomatology. He states that the. During the movie that the symptoms began was notably nonstressful. He denies any exogenous substances today otherwise. He has no headache, focal neurologic deficits, or other significant abnormalities on exam. He appears notably well and asymptomatic otherwise. ACS appears notably unlikely clinically, pheochromocytoma less likely considering his previous adrenal workup a year ago, but it is on the differential albeit lower. I do not see any evidence of adrenal imaging/adrenal ultrasound in the past so. Idiopathic hypertension secondary to weight gain and diminished exercises of concern however the symptomatology certainly appears to be atypical. Renal artery stenosis is also on the differential. Psychosocial component is on the differential but per the patient's history and the scenarios that this occurs also appears to be less likely given the lack of inciting events, and the patient's notably cool and calm demeanor otherwise. Prior to giving antihypertensive medications we will give a 30-minute trial period to see if his blood pressure improves on its own. We will evaluate for concerning etiologies, monitor closely and reassess. 12:47 AM EKG is benign with no evidence of STEMI. Blood pressure came down to the 180s to 190s, but is otherwise still elevated. We will give 10 mg of labetalol. Will continue to monitor closely as we wait for the rest of his results. 1:55 AM Laboratory workup has returned, relatively benign aside for elevation in his creatinine. Creatinine is elevated at 1.5, GFR 51, this is definitely a deviation from his normal. He normally resides at 1.1. Patient does admit that he has been drinking plenty of fluids throughout the day, multiple glasses of lemon water tea and decaffeinated coffee. Clinically he does not look dehydrated either. Concerned that this elevated creatinine may be a mild early reflection of endorgan irritation from his hypertensive emergency. Patient has no headache, no chest pain, no shortness of breath otherwise. Symptoms appear inconsistent with dissection, CVA, NSTEMI based on his current clinical assessment. Despite his initial 20 mg of oral propranolol, followed by 10 mg of IV labetalol the patient's blood pressure still is in the 220s over the high 90s. With the evidence of mild endorgan effect for his renal function, I do feel that admission for hydration, creatinine monitoring, and continued blood pressure control is indicated. On a nonemergent basis the patient probably would benefit from adrenal ultrasound and renal artery evaluation. 24-hour urine metanephrine reassessment would also be reasonable. We will give an additional 20 mg of IV labetalol at this time for continued blood pressure management. Discussed the case with the hospitalist Dr. Dasilva, he agrees with the assessment and plan. I have extensively reviewed the treatment plan with the patient. I have addressed all patient concerns at this time. I have also discussed the plan with the admitting physician and they agree with the current assessment and plan and have agreed to assume responsibility for the patient. All parties demonstrate verbal understanding and agreement with our assessment and plan at this time. The documentation in this chart was dictated using [employer] dictation software. Please excuse any dictation errors. Quality:SDOH Health Related Social Needs: No Data to Display Critical Care Time Critical Care Time Critical Care Time: Yes Total Critical Care Time: 45 Attestation: Upon my evaluation, this patient had a high probability of imminent or life- threatening deterioration, which required my direct attention, intervention, and personal management. I have personally provided 45 minutes of critical care time exclusive of time spent on separately billable procedures. Time includes review of laboratory data, radiology results, discussion with consultants, and monitoring for potential decompensation. Interventions were performed as documented. [facility] All Active Problems (Updated 11/14/23 @ 02:03 by Mariusz Henriquez DO) Hypertensive emergency (Acute) Acute kidney injury (Acute) Anxiety (Chronic) Panic disorder Plantar fasciitis (Acute) Cervical radiculopathy (Acute) Tinnitus, right (Acute) Vertigo (Acute) Asymmetrical sensorineural hearing loss (Acute) Abnormal auditory perception of right ear (Acute) Internal derangement of right knee (Acute) Tendinopathy of patella (Acute) Iliotibial band syndrome, left leg (Acute) Nasal polyp (Acute) Deviated nasal septum (Acute) Allergic rhinitis (Acute) HTN (hypertension) (Chronic) Sleep apnea (Acute) Neck pain (Acute) Seborrheic keratosis (Acute) Ventral hernia (Acute) Medical History Preventative health care Knee joint pain Flushing Chest pain, atypical Bilateral sensorineural hearing loss Shoulder pain Social History Smoking/Tobacco Use Status: Never Smoking risk assessment performed?: Yes Alcohol Intake: current Alcohol Intake frequency: a few times a month Alcohol type: beer and wine Drug use: Never Substance use type: does not use Housing: house Current gender identity: male Do you feel safe at home: Yes Do you feel safe in your relationship?: Yes
[2023-11-14 00:35] LABS: ALT 25 U/L (16-63); AST 13 U/L (15-37); Albumin 3.8 g/dL (3.4-5.0); Alkaline Phosphatase 30 U/L (46-116); Anion Gap 8.6 mmol/L (3-11); BUN 14 mg/dL (7-18); Bilirubin, Total 0.5 mg/dL (0.2-1.0); CO2 30.4 mmol/L (21.0-32.0); CREATININE 1.5 mg/dL (0.70-1.30); Calcium 8.8 mg/dL (8.5-10.1); Chloride 105 mmol/L (98-107); Estimated GFR 51.99 (mL/min/1.73m2); Glucose 107 mg/dL (74-106); Potassium 3.4 mmol/L (3.5-5.1); Sodium 144 mmol/L (136-145); TSH (W/Ref FT4) 2.36 uIU/mL (0.36-3.74); Total Protein 7.3 g/dL (6.4-8.2)
[2023-11-14 00:36] LABS: NT-proBNP 107 pg/mL (<300); Troponin I < 50 ng/L (< or =60)
[2023-11-14] MEDS: Labetalol 100 MG/20 ML VIAL 10 MG IVP (00:39)
[2023-11-14] MEDS: Lactated Ringers 1,000 ML 1000 ML IV (00:58)
[2023-11-14] MEDS: Labetalol 100 MG/20 ML VIAL 20 MG IVP (01:51)
[2023-11-14 02:12] LABS: Bilirubin Negative (Negative); Blood Negative (Negative); Clarity Clear (Clear); Glucose Negative (Negative); Ketones Negative (Negative); Leukocyte Esterase Negative (Negative); Nitrite Negative (Negative); Specific Gravity 1.015 (1.005-1.025); Urobilinogen 0.2 mg/dL (Up to 0.2)
--- NOTE | 2023-11-14 02:49 | W.PM.HP.N ---
Date of service: 11/14/23 Time of Service: 02:49 Assessment and Plan Assessment and plan (1) Hypertensive emergency: Start date: 11/14/23 Status: Acute Assessment and plan: This is a 63-year-old gentleman who has had high blood pressure treated for the last 8 years but more recently intermittent sudden elevation systolic blood pressure over 150 with symptoms of palpitations and occasional left arm discomfort which resolved as quickly as a come on when his blood pressure drops on his own. He has recent been taking propranolol for the sudden elevations but this did not help with this episode prompting his presentation he did respond to labetalol as slow heart rate with hydralazine IV to be used for treating his elevated blood pressure acute. Long-term he may need additional therapy when these episodes resolved blood pressure is controlled on his usual treatment with lisinopril. He does have hypokalemia which may be associated with hydrochlorothiazide and magnesium will be checked and low. He did have a bump in his creatinine from his baseline of 1.1-1.5. He has had imaging of his kidneys past but does not remember whether he had renal artery studies. He has had a 24-hour urine collection in the past but was not symptomatic at the time and was on SSRI which may block this test. Will continue monitoring his labs and blood pressure with hydralazine IV to be used for systolic blood pressure above 180 while collecting 24-hour urine. He will need further evaluation for pheochromocytoma and renal artery stenosis as an outpatient with his PCP. Will have electrolyte repletion and may want to consider potassium supplement chronically on hydrochlorothiazide. He is a full code. (2) Acute kidney injury: Start date: 11/14/23 Status: Acute Assessment and plan: Patient's creatinine is elevated and he will receive fluids with resuscitation watching for fluid overload with his hypertension. Trend labs. Renal studies are indicated as an outpatient with follow-up. (3) Hypokalemia: Start date: 11/14/23 Status: Acute Assessment and plan: Replete with IV potassium and follow-up labs. Consider oral potassium supplement this process. Check magnesium and replete if deficient. History of Present Illness History of Present Illness Chief Complaint: Elevated blood pressure Narrative: This is a 63-year-old male patient with an 8-year history of hypertension on medical therapy with lisinopril and hydrochlorothiazide during that time. More recently in the 1-1/2 years he has had intermittent episodes of elevation of his blood pressure with left arm discomfort where he has had a previous injury which would resolve and blood pressure normalized except for a slight bruised sensation for hours afterwards. More recently in the last 3 months he has had more frequent episodes of sudden increase in his blood pressure systolic measurements over 150 and then in the 200s on the day of presentation. This will come on like a light switch and in the past would and is quickly. His symptoms associated with these episodes are odd sensations along with palpitations and possibly flushing but no headache and no syncope. On the day of presentation patient was with his son having dinner when he felt a sudden onset of the symptoms. He usually has these episodes when he is lying down to take a nap. He does not smoke tobacco but did have 1 beer with his meal on the day of presentation. He is not a heavy drinker. He usually exercises with running via his preferred exercise. He has been limited because of bone spurs in his feet. He does work at the [employer] locally. He has very compliant with medical follow-up and does check his own blood pressures frequently withself monitoring and biofeedback. In the past patient has had an exercise stress test and also did have a 24-hour urine checking for methamphetamines as a workup for pheochromocytoma. He was not having symptoms at the time of this testing and may have been on an SSRI which may block this testing. The patient denies any peripheral edema and is had no chest pain with his palpitations. He has no GI or respiratory complaints. He also has no focalizing neurological complaints but is worried about a stroke with his elevated blood pressure. He is a full code. Review of Systems Narrative: 13 point review of systems otherwise unrevealing or stable. [facility] All Active Problems (Updated 11/14/23 @ 02:52 by Hugo Dasilva) Hypokalemia (Acute) Hypertensive emergency (Acute) Acute kidney injury (Acute) Anxiety (Chronic) Panic disorder Plantar fasciitis (Acute) Cervical radiculopathy (Acute) Tinnitus, right (Acute) Vertigo (Acute) Asymmetrical sensorineural hearing loss (Acute) Abnormal auditory perception of right ear (Acute) Internal derangement of right knee (Acute) Tendinopathy of patella (Acute) Iliotibial band syndrome, left leg (Acute) Nasal polyp (Acute) Deviated nasal septum (Acute) Allergic rhinitis (Acute) HTN (hypertension) (Chronic) Sleep apnea (Acute) Neck pain (Acute) Seborrheic keratosis (Acute) Ventral hernia (Acute) Medical History Preventative health care Knee joint pain Flushing Chest pain, atypical Bilateral sensorineural hearing loss Shoulder pain Social History Smoking/Tobacco Use Status: Never Smoking risk assessment performed?: Yes Alcohol Intake: current Alcohol Intake frequency: a few times a month Alcohol type: beer and wine Drug use: Never Substance use type: does not use Housing: house Current gender identity: male Do you feel safe at home: Yes Do you feel safe in your relationship?: Yes Meds Allergies and Home Medications Allergies Allergy/AdvReac Type Severity Reaction Status Date / Time penicillin V Allergy Mild Verified 06/16/23 15:15 Home Medications Medication Instructions Recorded Confirmed Type fluticasone propionate 50 2 spray intranasal DAILY 09/19/19 11/13/23 History mcg/actuation nasal spray,suspension hydrochlorothiazide 25 mg tablet 12.5 mg PO DAILY 02/25/21 11/13/23 History lisinopril 10 mg tablet 10 mg PO DAILY 02/25/21 11/13/23 History citalopram 10 mg tablet (Celexa) 20 mg (2 x 10 mg) PO DAILY #14 tabs 02/03/23 11/13/23 Rx propranolol 20 mg tablet 20 mg PO PRN 11/13/23 11/13/23 History Exam Narrative Exam Narrative: General: Patient appears appropriate for age, alert and oriented x 3 and in no acute distress. He is very good historian. He does have a accent. HEENT: Normocephalic, eyes with pupils equal and reactive to light symmetrically, extraocular movement intact and sclera anicteric. Oropharynx with moist mucosa and good condition. Neck: Supple without JVD. No palpable carotid thrills. Back: Normal posture without CVA tenderness. Lungs: Clear to auscultation percussion without focalizing rales or rhonchi. Normal aeration. Heart: Regular rate and rhythm with no murmurs or gallops appreciated. Abdomen: Slightly obese contour, soft and nontender to palpation with no palpable hepatosplenomegaly. Bowel sounds positive in all quadrants. No auscultated abdominal bruits. Genitalia/rectal: Exam deferred. Extremities: Without clubbing, cyanosis or pitting edema. Peripheral pulses intact. Skin: Normal color, warm and dry. Neuro: Cranial nerves II through XII grossly intact, no focalizing motor deficits. No tremor. Psych: Normal affect and mood. No abnormal thought processes. Remote and recent memory intact. Results Labs 11/13/23 00:00 11/13/23 23:54 Labs: Laboratory Results - last 24 hr 11/13/23 11/13/23 11/14/23 00:00 23:54 02:06 WBC 5.76 RBC 4.59 Hgb 14.9 Hct 40.8 MCV 89 MCH 32.5 MCHC 36.5 H RDW 12.0 Plt Count 141 MPV 10.2 Immature Gran % 0.2 Neutrophils % 66.3 Lymphocytes % 21.7 Monocytes % 7.8 Eosinophils % 3.3 Basophils % 0.7 Nucleated RBC % 0.0 Absolute Neutrophils 3.82 Absolute Lymphocytes 1.25 Absolute Monocytes 0.45 Absolute Eosinophils 0.19 Absolute Basophils 0.04 Sodium 144 Potassium 3.4 L Chloride 105 Carbon Dioxide 30.4 Anion Gap 8.6 BUN 14 Creatinine 1.5 H Est GFR (CKD-EPI 2020) 51.99 Glucose 107 H Calcium 8.8 Total Bilirubin 0.5 AST 13 L ALT 25 Alkaline Phosphatase 30 L Troponin I < 50 NT-Pro-B Natriuret Pep 107 Total Protein 7.3 Albumin 3.8 TSH 2.36 Urine Color Yellow Urine Clarity Clear Urine pH 7.0 Ur Specific [place] 1.015 Urine Protein Negative Urine Ketones Negative Urine Blood Negative Urine Nitrite Negative Urine Bilirubin Negative Urine Urobilinogen 0.2 Ur Leukocyte Esterase Negative Urine Glucose Negative Last Vital Signs Temp 36.7 C 11/13/23 23:17 Pulse 59 L 11/14/23 02:11 Resp 12 11/14/23 02:11 BP 196/95 H 11/14/23 02:11 Pulse Ox 96 11/14/23 02:11 Time Spent Time spent with Patient: >75 minutes Time was spent: preparing to see the patient(eg.review tests), obtaining and/or reviewing separately otained hiistory, ordering medications,tests, procedures, indepentently interpreting results, counseling the patient and care coordination
[2023-11-14 03:05] LABS: Troponin I < 50 ng/L (< or =60)
[2023-11-14 03:42] LABS: Magnesium 2.2 mg/dL (1.8-2.4)
--- NOTE | 2023-11-14 04:03 | RESPIRATORY ---
RT spoke with patient regarding sleep apnea diagnosis. Patient advised RT that he does not use any kind of CPAP machine.
[2023-11-14] MEDS: hydrALAZINE 20 MG/ML VIAL IVP (05:09)
[2023-11-14] MEDS: POTASSIUM CHLORIDE 20 MEQ/100 ML BAG 50 MEQ IVINF (05:10)
[2023-11-14] MEDS: Normal Saline 1,000 ML 125 ML IV (05:10)
[2023-11-14 06:48] LABS: HCT 42.6 % (40.0-50.0); HGB 15.6 g/dL (13.5-17.5); MCH 31.7 pg (27.0-33.0); MCHC 36.6 % (32.0-36.0); MCV 87 fL (80-95); MPV 10.2 fL (8.0-11.0); Platelet Count 165 10^3/uL (130-400); RBC 4.92 10^6/uL (4.36-5.78); RDW-SD 38.3 fL; WBC 6.79 10^3/uL (4.4-10.8)
[2023-11-14 07:10] LABS: ALT 23 U/L (16-63); AST 12 U/L (15-37); Albumin 3.7 g/dL (3.4-5.0); Alkaline Phosphatase 29 U/L (46-116); Anion Gap 11.1 mmol/L (3-11); BUN 11 mg/dL (7-18); Bilirubin, Total 0.8 mg/dL (0.2-1.0); CO2 24.9 mmol/L (21.0-32.0); CREATININE 1.1 mg/dL (0.70-1.30); Calcium 8.6 mg/dL (8.5-10.1); Chloride 107 mmol/L (98-107); Estimated GFR 75.43 (mL/min/1.73m2); Glucose 136 mg/dL (74-106); Magnesium 2.1 mg/dL (1.8-2.4); Potassium 3.4 mmol/L (3.5-5.1); Sodium 143 mmol/L (136-145); Total Protein 7.2 g/dL (6.4-8.2); Troponin I < 50 ng/L (< or =60)
[2023-11-14] MEDS: hydroCHLOROthiazide 25 MG TAB 12.5 MG PO (07:54)
[2023-11-14] MEDS: Normal Saline Flush 10 ML SYR IVP ×2 (07:54→11:53)
[2023-11-14] MEDS: Enoxaparin 40 MG/0.4 ML SYR SC (07:54)
[2023-11-14] MEDS: Lisinopril 10 MG TAB PO ×2 (07:54→11:12)
[2023-11-14] MEDS: Potassium Chloride 20 MEQ TABCR PO (11:11)
--- NOTE | 2023-11-14 11:22 | DSE_ITS ---
Date of service: 11/14/23 Time of Service: 11:22 DS: Diagnosis Discharge Diagnosis (1) Hypertensive emergency: Status: Acute (2) Acute kidney injury: Status: Acute (3) Hypokalemia: Status: Acute Discharge Plan Disposition Patient Disposition: Home Condition: Improving Discharge Details Reason For Visit: Hypertensive crisis Admit Date/Time: 11/14/23 02:53 Admit Provider: Hugo Dasilva Attending Provider: Hugo Dasilva Primary Care Provider: Samuel Morgan Hospital Course Hospital Course: This is a 63-year-old male patient with a past medical history significant for hypertension. He reports that he has episodes where his blood pressure is extremely elevated. He states these are not associated with any kind of stress or noncompliance with medication. He does have as needed propranolol that he takes but this time did not help improve his symptoms. He did report some complaints of bilateral neck discomfort and was very concerned about his symptoms so presented to the emergency department for evaluation. His symptoms were stabilized with IV hydralazine. His serial troponins remain negative he remained monitored on telemetry on the medical surgical unit and blood pressure continued to slowly improve. The ED had initiated a 24-hour urine which will be continued at discharge to be followed up with his outpatient team. There are also discussed imaging of the kidneys which will be ordered as ultrasound is not available over the weekend. He will be discharged home on an increased dose of lisinopril at 20 mg daily and will be given a prescription for hydralazine 25 mg to take up to 4 times daily if needed for episodes of poorly controlled blood pressure. Should follow-up with his primary care provider for further evaluation and recommendations. He is stable for discharge to home and will be discharged with no new services Discharge discussed with Dr. Grey Home Meds and New Rx's Prescriptions: New hydralazine 25 mg tablet 25 mg PO QID PRNQty: 30 0RF Continued fluticasone propionate 50 mcg/actuation spray,suspension 2 spray RAYRAY DAILY citalopram [Celexa] 10 mg tablet 20 mg PO DAILY Qty: 14 0RF propranolol 20 mg tablet 20 mg PO PRN Patient Comments: TAKE ONE TABLET BY MOUTH EVERY DAY NEEDED FOR ANXIETY/HYERPTENSION hydrochlorothiazide 12.5 mg tablet 12.5 mg PO DAILY Patient Comments: TAKE ONE TABLET BY MOUTH EVERY MORNING Changed lisinopril 10 mg tablet 20 mg PO DAILY Qty: 0 0RF Discharge Instructions Instructions: Hypertensive Crisis (DC) Additional Instructions: continue urine collection as instructed. Stand Alone Forms: Nursing Discharge Form Referrals: Samuel Morgan MD [Primary Care Provider] - (Please call Thursday to make a follow up appointment for 1-2 weeks) Activity:: Activity as Tolerated Equipment/Supplies:: No Equipment Needed Diet:: As Tolerated Discharge Orders Discharge Orders: Discharge Order (Routine); Ordered 11/14/23 Ordered By: Samantha Pagan Other Ambulatory Orders: US renal (Routine) Location: None Selected Ordered By: Samantha Pagan Discharge Data Discharge Date/Time-TO BE ENTERED AT DEPARTURE: 11/14/23 14:16 DS: Summary Time Spent with Patient providing and/or coordinating discharge services: Less than 30 minutes Status at Discharge Functional status at discharge: independent ambulation Overall status at discharge: patient is back to baseline Mental Status: mental status grossly normal Speech and Movement: speech and movement normal Mood: anxious mood Affect: normal affect and anxious affect Quality:SDOH Health Related Social Needs: No Data to Display Exam Const General: cooperative HENMT Head: normocephalic and atraumatic Mouth: moist mucous membranes Eyes Conjunctivae: normal conjunctivae Sclera: normal sclerae EOM: EOM intact bilaterally Neck Neck: supple Resp Auscultation: clear to auscultation bilaterally Cardio Rate: regular rate Rhythm: regular rhythm GI Palpation: soft and nontender Skin General skin exam: no rashes or lesions noted Neuro General: patient alert, patient awake, patient oriented x3 and tone normal Cognition: normal cognition Speech: speech normal Gait: normal gait Motor: strength 5/5 throughout Sensory Exam: no sensory deficits noted Extrem General: no edema Psych Appearance: grossly normal Mental Status: mental status grossly normal Speech and Movement: speech and movement normal Mood: anxious mood Affect: normal affect and anxious affect Attitude: cooperative Thought Process: normal DS: Data Vitals/I&O Vitals and I&O: Vital Signs Temperature 36.7 C 11/14/23 11:09 Temperature Source Tympanic 11/14/23 11:09 Pulse 69 11/14/23 11:09 Pulse Rhythm Regular 11/14/23 07:55 Pulse 63 11/14/23 02:46 Respiratory Rate 18 11/14/23 11:09 Respiratory Effort Normal, Non-Labored 11/14/23 07:55 Respiratory Depth Normal 11/14/23 07:55 Respiratory Pattern Normal 11/14/23 07:55 Blood Pressure 165/72 H 11/14/23 11:09 Blood Pressure Mean 137 11/14/23 02:46 Blood Pressure Position Sitting 11/13/23 23:17 Pulse Oximetry 97 11/14/23 11:09 Oxygen Delivery Method Room Air 11/14/23 11:09 Oxygen Flow Rate 0 11/14/23 11:09 Pain Level 0 11/14/23 07:55 Comment RN informed of BP 11/14/23 11:09 Intake & Output 11/13/23 11/13/23 11/14/23 11:59 23:59 11:59 Intake Total 1847.917 / 1847.917 Balance 1847.917 / 1847.917 Weight 83.915 kg 84.6 kg Intake: IV 1847.917 / 1847.917 Other: Urine Appearance Clear Comment pT up to bathroom at this time; 24 hour urine collection Voiding Methods Urinal Data Completed and Pending Labs on day of discharge: Labs from last 24 hours 11/14/23 11/14/23 11/14/23 06:09 03:30 02:45 WBC 6.79 RBC 4.92 Hgb 15.6 Hct 42.6 MCV 87 MCH 31.7 MCHC 36.6 H RDW 12.0 Plt Count 165 MPV 10.2 Immature Gran % Neutrophils % Lymphocytes % Monocytes % Eosinophils % Basophils % Nucleated RBC % Absolute Neutrophils Absolute Lymphocytes Absolute Monocytes Absolute Eosinophils Absolute Basophils Sodium 143 Potassium 3.4 L Chloride 107 Carbon Dioxide 24.9 Anion Gap 11.1 H BUN 11 Creatinine 1.1 Est GFR (CKD-EPI 2020) 75.43 Glucose 136 H Calcium 8.6 Magnesium 2.1 2.2 Total Bilirubin 0.8 AST 12 L ALT 23 Alkaline Phosphatase 29 L Troponin I < 50 < 50 NT-Pro-B Natriuret Pep Total Protein 7.2 Albumin 3.7 TSH Urine Color Urine Clarity Urine pH Ur Specific [place] Urine Protein Urine Ketones Urine Blood Urine Nitrite Urine Bilirubin Urine Urobilinogen Ur Leukocyte Esterase Urine Glucose 11/14/23 11/13/23 11/13/23 02:06 23:54 00:00 WBC 5.76 RBC 4.59 Hgb 14.9 Hct 40.8 MCV 89 MCH 32.5 MCHC 36.5 H RDW 12.0 Plt Count 141 MPV 10.2 Immature Gran % 0.2 Neutrophils % 66.3 Lymphocytes % 21.7 Monocytes % 7.8 Eosinophils % 3.3 Basophils % 0.7 Nucleated RBC % 0.0 Absolute Neutrophils 3.82 Absolute Lymphocytes 1.25 Absolute Monocytes 0.45 Absolute Eosinophils 0.19 Absolute Basophils 0.04 Sodium 144 Potassium 3.4 L Chloride 105 Carbon Dioxide 30.4 Anion Gap 8.6 BUN 14 Creatinine 1.5 H Est GFR (CKD-EPI 2020) 51.99 Glucose 107 H Calcium 8.8 Magnesium Total Bilirubin 0.5 AST 13 L ALT 25 Alkaline Phosphatase 30 L Troponin I < 50 NT-Pro-B Natriuret Pep 107 Total Protein 7.3 Albumin 3.8 TSH 2.36 Urine Color Yellow Urine Clarity Clear Urine pH 7.0 Ur Specific [place] 1.015 Urine Protein Negative Urine Ketones Negative Urine Blood Negative Urine Nitrite Negative Urine Bilirubin Negative Urine Urobilinogen 0.2 Ur Leukocyte Esterase Negative Urine Glucose Negative PFSH All Active Problems (Updated 11/14/23 @ 02:52 by Hugo Dasilva) Hypokalemia (Acute) Hypertensive emergency (Acute) Acute kidney injury (Acute) Anxiety (Chronic) Panic disorder Plantar fasciitis (Acute) Cervical radiculopathy (Acute) Tinnitus, right (Acute) Vertigo (Acute) Asymmetrical sensorineural hearing loss (Acute) Abnormal auditory perception of right ear (Acute) Internal derangement of right knee (Acute) Tendinopathy of patella (Acute) Iliotibial band syndrome, left leg (Acute) Nasal polyp (Acute) Deviated nasal septum (Acute) Allergic rhinitis (Acute) HTN (hypertension) (Chronic) Sleep apnea (Acute) Neck pain (Acute) Seborrheic keratosis (Acute) Ventral hernia (Acute) Medical History Preventative health care Knee joint pain Flushing Chest pain, atypical Bilateral sensorineural hearing loss Shoulder pain Social History Smoking/Tobacco Use Status: Never Smoking risk assessment performed?: Yes Alcohol Intake: current Alcohol Intake frequency: a few times a month Alcohol type: beer and wine Drug use: Never Substance use type: does not use Housing: house Current gender identity: male Do you feel safe at home: Yes Do you feel safe in your relationship?: Yes Time Spent with Patient Time Spent with Patient: 45-69 minutes Time was spent: preparing to see the patient(eg.review tests), obtaining and/or reviewing separately otained hiistory, ordering medications,tests, procedures, indepentently interpreting results and counseling the patient
[2023-11-14] MEDS: Acetaminophen 325 MG TAB 650 MG PO (11:39)
[2023-11-14] MEDS: Ketorolac 15 MG/ML VIAL IVP (11:50)
== END 2023-11-14 14:16 | disposition home or self-care (01) | DRG 305 ==
LOC: ER 11-14 03:34 → MS 11-14 03:35
PROVIDERS: Admitting Provider Family Medicine; Emergency Provider Student in an Organized Health Care Education/Training Program; PCP Family Medicine; Visit Provider Family Medicine
DX: I16.1 Hypertensive emergency (principal); N17.9 Acute kidney failure, unspecified; E87.6 Hypokalemia; F41.0 Panic disorder [episodic paroxysmal anxiety]; M72.2 Plantar fascial fibromatosis; M54.12 Radiculopathy, cervical region; H93.291 Other abnormal auditory perceptions, right ear; M76.32 Iliotibial band syndrome, left leg; J30.9 Allergic rhinitis, unspecified; J34.2 Deviated nasal septum; G47.30 Sleep apnea, unspecified; H90.3 Sensorineural hearing loss, bilateral; Z79.899 Other long term (current) drug therapy
CPT/HCPCS: 00123; 36415; 80053; 85027; 93005; 96361; 96374; 96376; 99291; J1650; 81003; 83735; 83880; 84443; 84484; 85025; 93010; 99234; J0360; J1885; J1920; J3480

== ENCOUNTER 2023-11-15 10:47 | Outpatient (REF) | payer BC, SELFPAY ==
[2023-11-23 20:58] LABS: Metanephrines, U 160 mcg/24 h; Normetanephrine, U 355 mcg/24 h; Total Metanephrines, U 515 mcg/24 h; Urine Volume 3200 mL
== END 2023-11-15 10:48 | disposition home or self-care (01) ==
LOC: LBN 10:47
PROVIDERS: PCP Family Medicine; Visit Provider Nurse Practitioner Acute Care
DX: N17.9 Acute kidney failure, unspecified (principal); I16.1 Hypertensive emergency; E87.6 Hypokalemia
CPT/HCPCS: 81050; 83835

== ENCOUNTER 2023-11-26 09:13 | Outpatient (CLI) | payer BC, SELFPAY ==
--- NOTE | 2023-11-26 09:00 | RT.EKG_ITS ---
APPROVED REPORT Exam: Resting ECG Reason for Exam: HTN Patient Location: O HR:69 bpm ECG Measurements Heart Rate 69 AXIS IN 173 P -21 QRSd 97 QRS 260 QT 407 T 36 QTc 436 Conclusion Sinus rhythm...normal P axis, V-rate 50- 99 Left anterior fascicular block...axis(240,-40), init forces inf
== END 2023-11-26 09:14 | disposition home or self-care (01) ==
LOC: DI.CARD 09:14
PROVIDERS: PCP Family Medicine; Visit Provider Internal Medicine Cardiovascular Disease
DX: I16.1 Hypertensive emergency (principal)
CPT/HCPCS: 93010

== ENCOUNTER 2024-02-01 15:41 | Outpatient (REF) | payer BC, SELFPAY ==
[2024-02-01 15:26] LABS: COMMENT (LAB VIEW ONLY) 31.62 mg/dL
[2024-02-01 15:37] LABS: PHOSPHORUS 3.7 mg/dL (2.6-4.7); Uric Acid 5.2 mg/dL (3.5-7.2)
--- OUTSIDE RECORDS SUMMARY | 2024-02-01 15:43 | XMS_ITS | Patient Health Record ---
Author Name Unknown [facility] Address [address] [place] [address] Care Team Providers Care Senior Staff Consultant Name Role Phone SALAS ENGLISH MD Primary Care Provider Unavail able Tanner Campo [phone] ALLERGIES Allergen (clinical drug ingredient) Drug/Non Drug [...] Sleep apnea (G47.30) Active confirmed Sleep apnea (07105253) Problem Abdominal pain (R10.9) Active confirmed Abdominal pain (73516894) Problem Foot pain, left (M79.672) Active confirmed Pain in limb (34961088) Problem HTN (hypertension ) (I10) Active confirmed Hypertension (50807236) Problem Allergic rhinitis (J30.9) Active confirmed Allergic rhinit is (27429112) Problem Ventral hernia (K43.9) Active confirmed Ventral hernia (623983583) Problem Knee pain, left (M25.562) Active confirmed Arthralgia of t he lower leg (591068057) Problem Deviated nasal septum (J34.2) Active confirmed Deviated nasal septum (843946901) Problem Chest pain, atypical (R07.89) Active confirmed Chest pain (55675545) Problem Nasal polyp (J33.9) Active confirmed Nasal polyp (08360726) Problem Iliotibial band syndrome, left leg (M76.32) Active confirmed Enthesopathy of hip region (05900142) Problem Flushing (R23.2) Active confirmed Flushing (12491247) Problem Neuritis of left foot (G57.92) Active confirmed 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
[2024-02-01 16:28] LABS: Vitamin D 25 Total 43.2 ng/mL (30-100)
== END 2024-02-01 15:42 | disposition home or self-care (01) ==
LOC: NCHCN 15:41
PROVIDERS: PCP Family Medicine; Visit Provider Family Medicine
DX: I10 Essential (primary) hypertension (principal); N17.9 Acute kidney failure, unspecified; Z79.899 Other long term (current) drug therapy
CPT/HCPCS: 82306; 82043; 82570; 84100; 84550

== ENCOUNTER 2024-06-07 02:25 | Outpatient (CLI) | payer BC, SELFPAY ==
[2024-06-07 17:01] LABS: Bilirubin Negative (Negative); Blood Negative (Negative); Clarity Clear (Clear); Glucose Negative (Negative); Ketones Negative (Negative); Leukocyte Esterase Negative (Negative); Nitrite Negative (Negative); Specific Gravity 1.015 (1.005-1.025); Urobilinogen 0.2 mg/dL (Up to 0.2)
[2024-06-07 17:03] LABS: Abs Immature Grans 0.02 10^3/uL (0.0-0.06); Absolute Basophil Count 0.02 10^3/uL (0.0-0.2); Absolute Eosinophil Count 0.21 10^3/uL (0.0-0.7); Absolute Lymphocyte Count 1.32 10^3/uL (1.2-3.4); Absolute Monocyte Count 0.58 10^3/uL (0.1-0.8); Absolute Neutrophil Count 6.18 10^3/uL (1.2-6.7); Basophils % 0.2 %; Eosinophils % 2.5 %; HCT 39.8 % (40.0-50.0); HGB 14.1 g/dL (13.5-17.5); Immature Grans % 0.2 %; Lymphocytes % 15.8 %; MCH 31.5 pg (27.0-33.0); MCHC 35.4 % (32.0-36.0); MCV 89 fL (80-95); MPV 9.8 fL (8.0-11.0); Neutrophils % 74.3 %; Platelet Count 172 10^3/uL (130-400); RBC 4.47 10^6/uL (4.36-5.78); RDW-SD 39.1 fL; WBC 8.33 10^3/uL (4.4-10.8)
[2024-06-07 17:25] LABS: ALT 21 U/L (16-63); AST 12 U/L (15-37); Albumin 3.6 g/dL (3.4-5.0); Alkaline Phosphatase 29 U/L (46-116); Anion Gap 5.8 mmol/L (3-11); BUN 14 mg/dL (7-18); Bilirubin, Total 0.53 mg/dL (0.2-1.0); CO2 30.2 mmol/L (21.0-32.0); Calcium 8.6 mg/dL (8.5-10.1); Chloride 104 mmol/L (98-107); Estimated GFR 84.05 (mL/min/1.73m2); Glucose 89 mg/dL (74-106); Magnesium 2.1 mg/dL (1.8-2.4); PHOSPHORUS 4.6 mg/dL (2.6-4.7); Potassium 3.7 mmol/L (3.5-5.1); Sodium 140 mmol/L (136-145); Total Protein 7.1 g/dL (6.4-8.2); Uric Acid 4.7 mg/dL (3.5-7.2)
== END 2024-06-07 02:26 | disposition home or self-care (01) ==
PROVIDERS: PCP Family Medicine; Visit Provider Internal Medicine Nephrology
DX: I10 Essential (primary) hypertension (principal)
CPT/HCPCS: 36415; 80053; 81003; 82088; 83735; 84100; 84244; 84550; 85025

== ENCOUNTER 2024-07-13 02:57 | Outpatient (CLI) | payer BC, SELFPAY ==
[2024-07-13 13:34] LABS: Sodium, Urine 13 mmol/L
[2024-07-13 13:36] LABS: Creatinine,Urine < 13.0 mg/dL
== END 2024-07-13 02:58 | disposition home or self-care (01) ==
LOC: LBO 02:58
PROVIDERS: PCP Family Medicine; Visit Provider Internal Medicine Nephrology
DX: I10 Essential (primary) hypertension (principal)
CPT/HCPCS: 36415; 80048; 82088; 82565; 84244; 84300

== ENCOUNTER 2024-07-18 02:27 | Outpatient (CLI) | payer BC, SELFPAY ==
[2024-07-18 08:15] LABS: Anion Gap 6.8 mmol/L (3-11); BUN 10 mg/dL (7-18); CO2 30.2 mmol/L (21.0-32.0); CREATININE 1.1 mg/dL (0.70-1.30); Calcium 8.5 mg/dL (8.5-10.1); Chloride 103 mmol/L (98-107); Estimated GFR 74.96 (mL/min/1.73m2); Glucose 114 mg/dL (74-106); Potassium 3.6 mmol/L (3.5-5.1); Sodium 140 mmol/L (136-145)
[2024-07-21 12:15] LABS: Renin Activity, Plasma <0.6 ng/mL/h
[2024-07-21 20:44] LABS: Aldosterone, P 17 ng/dL (<=21)
== END 2024-07-18 02:28 | disposition home or self-care (01) ==
LOC: LBO 02:28
PROVIDERS: PCP Family Medicine; Visit Provider Internal Medicine Nephrology
DX: I10 Essential (primary) hypertension (principal)
CPT/HCPCS: 36415; 80048; 82088; 84244

== ENCOUNTER 2024-09-02 00:17 | Outpatient (CLI) | payer BC, SELFPAY ==
--- NOTE | 2024-09-02 | DI.MRI_ITS ---
Exam(s) MR CERVICAL SPINE WO EXAM: MR CERVICAL SPINE WO CLINICAL HISTORY: NECK PAIN, CERVICALGIA, M54.2 TECHNIQUE: Multiplanar multisequence MRI of the cervical spine was performed without intravenous con trast. COMPARISON: No exams were available for comparison FINDINGS: BONES: There are degenerative changes seen in the cervical spine with endplate osteophytes and facet arthropathy. The findings are most marked on the left at C3-4 through C5-C6. Intervertebral disc spa roge are normal. Alignment is normal. Bone marrow signal intensity is within normal limits. Note is ag ain made of multiple high density lesions in the maxillary sinuses which may represent polyps. CERVICAL CORD: Craniovertebral junction is unremarkable. The cervical cord is normal size and signal intensity. SOFT TISSUES: Unremarkable. C2-3: No disc herniation or bulge is identified. No significant central spinal canal or neural forami nal stenosis. C3-4: No disc herniation or bulge is identified. No significant central spinal canal or neural forami nal stenosis C4-5: No disc herniation or bulge is identified. There is no significant central spinal canal stenosi s. There is mild narrowing of the left neural foramen. No significant right neural foraminal stenos is is seen. C5-6: There is mild prominence of the osteophyte disc complex. There is no significant central spina l canal stenosis. There is mild narrowing of the left neural foramen. There is mild narrowing of th e right neural foramen. C6-7: There is mild prominence of the osteophyte disc complex. No significant central spinal canal o r neural foraminal stenosis there is mild narrowing of the right neural foramen. C7-T1: No disc herniation or bulge is identified. No significant central spinal canal or neural michael inal stenosis IMPRESSION: 1. Multilevel degenerative changes are seen in the cervical spine. No significant central spinal can al stenosis is seen. 2. There is narrowing of the neural foramen on the left at C4-5 and C5-C6 and on the right at C5-6 an d C6-C7. DATA REPOSITORY:
--- OUTSIDE RECORDS SUMMARY | 2024-09-02 00:32 | XMS_ITS | Encounter Summary ---
Author Organization [facility]ly [facility] Address [facility] [place] [address] Care Team Providers Care Tipping Machine Operator Name Role Phone Samuel Morgan MD Primary Care Provider [phone] Encounter Details Date Type Department Care Team (Late st Contact Info) Description 06/06/2024 Telephone Neph[place] [phone] Melissa Mccrary Social History Tobacco Use Types Packs/Day Years Used Date Smoking Tobacco: Never Smokeless Tobacco: Never Sex and Gender Information Value Date Recorded Sex Assigned at Not on file Gender Identity Not on file Sexual Orientation Not on file documented as of this encounter Miscellaneous Notes * Telephone Encounter - Melissa Mccrary - 06/06/2024 10:13 AM ESTSummary: Nephrology Apt. Pt called needing an apt. With a new provider. I offered Jun.07 at 10am, pt was unable to do thatdate. I then offered Jun.10 at 10am pt at first refused that apt. As well. I did advise pt at that time that it would be in August, pt was not happy. Pt jumped back to that apt. On Jun 10 he is going to try and juggle things around. I did advise pt that I would need to know real soon since I have a lot of people trying to get in, pt said he should know in about 10 min. I have not heard back from pt. I asked pt about labs he stated last ones he got in summer, no labs were noted. I will call [facility] to get copies. I did tell him he would have to get new ones and I can send to [facility], explained the time frame of getting labs. documented in this encounter Plan of Treatment Upcoming Encounters Date Type Department Care Team (Latest Contact Info) Description 10/06/2024 1:30 PM EST Laboratory Appointment Lab [address] [place] [address] 10/06/2024 3:00 PM EST Office Visit Neph[place] [address] Toney Nelson MD [facility] [address] NEPHROLOGY [place] [phone] documented as of this encounter Visit Diagnoses Not on filedocumented in this encounter Care Teams Tipping Machine Operator Relationship Specialty Start Date End Date Samuel Morgan MD [address] [place] [address] PCP - General Family Medicine 12/03/23 documented as of this encounter
--- OUTSIDE RECORDS SUMMARY | 2024-09-02 00:32 | XMS_ITS | Encounter Summary ---
Author Organization [facility] Address [address] [place] [address] Care Team Providers Care Sewing Machine Bobbin Winder Name Role Phone Soraya Flowers TOVA Primary Care Provider [phone] Encounter Details Date Type Department Care Team (Late st Contact Info) Description 07/09/2023 Lab Requisition [facility] Pathology & Laboratory Medicine - [facility] [address], [place] [phone] Outr Resulting Lab, Provider Social History Tobacco Use Types Packs/Day Years Used Date Smoking Tobacco: Never Assessed Interpersonal Safety Answer Date Record ed Physically Hurt Never 03/04/2020 Verbally Threaten Not on file 03/04/2020 Sex and Gender Information Value Date Recorded Sex Assigned at Not on file Legal Sex Male 18:53 EST Gender Identity Not on file Sexual Orientation Not on file documented as of this encounter Plan of Treatment Not on file documented as of this encounter Procedures Procedure Name Priority Date/Time Associated Diagnosis Comments HOMOCYSTEINE Today 07/09/2023 13:04 EST documented in this encounter Results * HOMOCYSTEINE (07/09/2023 13:04 EST) Homocysteine 11.9 5.0 - 13.9 umol/L 07/10/2023 9:36 EST [facility] Blood VENOUS BLOOD / Unknown 07/09/2023 13:04 EST 07/09/2023 21:32 EST Narrative [facility] - 07/10/2023 9:36 EST Reference range may not apply to non-fasting samples. ??It is not recommended that EDTA plasma and serum from the same patient be used interchangeably. ??Serum concentrations have been observed to be up to 10% higher than EDTA plasma. Reference range may not apply to serum results. us Provider Outr Resulting Lab CHEMISTRY & BLOOD GA S ORDERABLES Final Result [facility] [address] [place] [address] documented in this encounter Visit Diagnoses Not on filedocumented in this encounter Care Teams Sewing Machine Bobbin Winder Relationship Specialty Start Date End Date Soraya Flowers FNP [address] [place] [address] PCP - General 05/02/11 documented as of this encounter
--- OUTSIDE RECORDS SUMMARY | 2024-09-02 00:32 | XMS_ITS | Encounter Summary ---
Author Organization [facility] [place] [facility] [address] Care Team Providers Care Buildings And Grounds Director Name Role Phone Samuel Morgan MD Primary Care Provider [phone] Encounter Details Date Type Department Care Team (Latest Contact Info) Description 06/10/2024 10:00 AM EST Office Visit [place] [id number] Toney Nelson MD [facility] [address] Hypertension, unspecified type Social History Tobacco Use Types Packs/Day Years Used Date Smoking Tobacco: Never Smokeless Tobacco: Never Sex and Gender Information Value Date Recorded Sex Assigned at Not on file Gender Identity Not on file Sexual Orientation Not on file documented as of this encounter Last Filed Vital Signs Vital Sign Reading Time Taken Comments Blood Pressure 165/82 06/10/2024 10:10 AM EST Pulse 71 06/10/2024 10:10 AM EST Temperature - - Respiratory Rate - - Oxygen Saturation - - Inhaled Oxygen Concentration - - Weight 83 kg (183 lb) 06/10/2024 10:10 AM EST Height 175.3 cm (5' 9) 06/10/2024 10:10 AM EST Body Mass Index 27.02 06/10/2024 10:10 AM EST documented in this encounter Progress Notes * Toney Nelson MD - 06/10/2024 10:00 AM EST Nephrology/Hypertension Clinic Follow-up Note [id number] ID: 64 y.o.year-old male for follow up of htn Past Medical History: Problem list reviewed with patient. Relevant issues discussed in detail below. 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 Allergic rhinitis J30.9 Benign essential hypertension I10 Carotid bruit R09.89 Abdominal pain R10.9 Deviated nasal septum J34.2 Disorder of nail L60.9 Dizziness R42 Enthesopathy of hip region M76.899 Face goes red R23.2 Fatigue R53.83 Flushing R23.2 Hearing loss H91.90 High serum creatinine R79.89 Hyperlipidemia E78.5 Middle insomnia G47.00 Nasal polyp J33.9 Pain in left knee M25.562 Pain in limb M79.609 Sleep apnea G47.30 Unspecified mononeuropathy of left lower limb G57.92 Vitamin D deficiency E55.9 Current Outpatient Medications on File Prior to Visit Medication Sig Dispense Refill magnesium 250 mg tablet Take by mouth. SAW PALMETTO ORAL Take by mouth. UNABLE TO FIND Take by mouth daily. KIDNEY CLEANSE fluticasone propionate (Flonase) 50 mcg/actuation nasal spray, suspension 2 sprays by Each Nare route daily. hydrALAZINE (Apresoline) 25 mg tablet 4 times daily as needed. hydroCHLOROthiazide 12.5 mg tablet Take 1 tablet by mouth every morning. lisinopriL (Zestril) 10 mg tablet Take 1 tablet by mouth daily. propranoloL (Inderal) 20 mg tablet Take 20 mg by mouth as needed. melatonin 5 mg tablet Take by mouth nightly. citalopram (CeleXA) 10 mg tablet Take 2 tablets by mouth daily. [DISCONTINUED] homeopathic drugs (RAUWOLFIA ORAL) Take 7 drops by mouth 2 times daily. No current facility-administered medications on file prior to visit. Allergies Allergen Reactions Penicillin V Potassium Other Reaction(s): Unknown S: my first meeting with this patient previously seen by colleagues here with Vangie to discuss unusual hypertension. Feels like two different people when bp high vs not Dx with htn about 10 years ago 140/80s --> started lisinopril and hydrochlorothiazide with reasonable control to normal levels on most occasions. Over the past few years, his blood pressure has become more challenging. Mr. Aranda reports that he can go weeks or months with normal bp but then will have episode of pain (which she describes as dull ache in left post shoulder, stiff neck, and ache in left arm). When he gets this pain, his blood pressure is always dramatically higher, sometimes 150s or 160s, but even up to 180s, 1 occasion over 200 close (. The hypertension, shoulder, neck, and arm pain can last anywhere from 3 to 7 days before normal blood pressure resumes. He has not been able to identify any trigger for these episodes,although he and his have a couple of ideas. First of all, they have noted that these episodes tend to occur when he is sitting down and perhaps flexed at the neck with poor posture. They are wondering if neck flexion results in some sort of abnormal stimulation of his vagus nerve? He also notes that when he goes running (he runs up to 5 miles per day without dyspnea or chest pain) he will have neck pain for the first half mile or so which she has been attributing to high blood pressure when he first starts running which then resolves as his run continues. Of note, an MRI of the neck isanticipated to evaluate neck pain. This pattern was broken earlier His most severe episode occurred in November of this year when he was out to dinner with his son. He began to experience palpitations. However, he completed dinner and even went to a movie. However later that night he felt worse with more palpitations and checked his blood pressure finding it to be initially 180 systolic and over 200. He went to the emergency department at [facility] Where he was admitted overnight. Initial treatment consisted of labetalol which did not improve the blood pressure. He was then given intravenous hydralazine which did improve the blood pressure. Following this he was discharged on as needed hydralazine. He says he has taken hydralazine on 3 occasions since then with improvement on blood pressure on each occasion. Workup thus far has included cardiology evaluation at [facility] which she says has included echocardiography and other evaluation. He has had stress testing, but this was done several years ago and not since onset of the more unusual pattern of hypertension. In any case, his convention planner told him that his heart was fine (I would like to review these records if possible). He says that he has had 2 renal duplex (1 here) negative for renal artery stenosis. He believes she has undergone screening for adrenal hormones but I cannot find any record of this. He has had a brain MRI (for other indications) negative for aneurysm or mass. He has had a CT scan of the chest which is understanding was that it was negative for any type of vascular abnormality, but again, we do not have the details. He checks his blood pressure at home using proper technique and finds it is usually in the normal range exceptfor these episodes of higher blood pressure. Of note, his diet is relatively high in tyramine containing foods including red wine and preserved meats and some fermented products, although he cannot correlate his hypertensive episodes with intake of any of these foods. Also of note is an episode of severe respiratory distress that occurred in November 2022 in the context of some sort of respiratory infection with sputum production. He believes his airway occluded transiently leading to emergency evaluation. He was able to expectorate the mucus and recovered uneventfully but this event caused severe posttraumatic stress and depression. Over the ensuing 12 months helost about 25 pounds. He had insomnia and received several medications to address this. Over recentmonths his symptoms have stabilized and he has regained about 15 pounds of the lost weight. Diet currently healthy with plenty of vegetables and fruit. Salt intake is modest - rarely adds salt but does eat chips Little alcohol (up to two glasses of wine on weekend) No drugs 4 cups of tea Patient previously was using rauwolfia but no longer uses this supplement. 133/78 this am Reports BP same in both arms About 10 years ago he says he had sleep apnea that would awaken him No sx for 6 years No sleep study Family history: Mom: no knowledge Dad: no knowledge Siblings but no knowledge 2 grown sons Youngest son has Mosiac downs, no vasc dz or htn Otherwise healthy O: Patient Vitals for the past 24 hrs: Pulse BP 06/10/24 1010 71 165/82 Weight 83 kg Blood pressure right arm seated 177/85, left arm seated 175/97. Heart rate 65-67. General: looks fit Very flushed (face and body with blanching) Eye: yen, fundi neg ENT: voice slightly hoarse Neck: no bruits, no masses (chart lists history of carotid bruit but I do not hear 1 today). CV: rrr no gallop murmur or rub Resp: clear Abd: soft, nt, no hsm, no bruits Ext: no edema, good pusles, no recognized femoral delay Skin: flushed red Neuro: nf, no tremor Psych: mood/affect normal Lab data from [facility] on June 08 Urinalysis normal, calcium 8.6, phosphorus 4.6, BUN 14, creatinine 1.0, glucose 89, uric acid 4.7, albumin 3.6, total protein 7.1, liver function tests all normal. Sodium 140, potassium 3.7, [id number], CO2 30, anion gap 5.8 which is normal and that laboratory. Hemoglobin 14, WBC 8.3, platelets 172, differential unremarkable. Renal duplex dated 01/18/2024 with right kidney 11.7 cm, left kidney 11.4 cm, no evidence of renal artery stenosis. A/P: 64-year-old man with unusual pattern of hypertension. He is usually very well- controlled on standard therapy including lisinopril and hydrochlorothiazide but has episodes of sustained hypertension with left posterior shoulder pain, neck pain, and arm pain. These episodes last for at least 3 to 7 days. He has flushing but no pallor or diaphoresis. So far he reports the following workup: MRI head negative CT chest negative Blood pressure same in both arms Normal renal function and urinalysis Normal echocardiogram Negative stress testing (although not concurrent with symptoms) Negative screening for adrenal dysfunction I would like to review all of this workup. I have asked the patient to arrange for his primary careprovider or an [facility] to send me the records. If there are any loose ends, we should address them. Specifically, I think it would be warranted to obtain 24-hour urine for metanephrines, morning aldosterone to renin ratio, MANAGER ASSET imaging, thoracic imaging to make sure there is no evidence of a vascular malformation such as a coarctation or aneurysm, and imaging of the neck to make sure there are no osteophytes causing compression of neurovascular structures. As mentioned, I would like to review the echocardiography and make sure stress testing has been adequate. If this workup is completed and all negative, we should consider strategies to abort episodes or prevent episodes. Clonidine comes to mind as a potentially useful agent although side effects may be problematic. Although hydralazine has been effective, it is rapid onset and offset as well as its association with induction of autoimmunity make it less desirable long-term strategy. We discussed the indications for blood pressure management being mainly prevention of cardiovascular events down the road. An average blood pressure of 130/80 or less is desirable. He should follow aheart healthy diet rich in fruits and vegetables. I have asked him to keep a diary of his blood pressures and any episodes and try to relate them to any particular food intake or activity level. There observation that the episodes may relate to position of neck is interesting and hopefully his upcoming neck MRI will be useful. I did not order any new tests because much of the workup has probably already been done, but as mentioned, we will fill any gaps. I will plan to see him back in a few months but we will be in contact with each other through my as information is gathered. Will defer other cardiovascular risk profiling to primary care, but there may be indications for lipid-lowering therapy based on age and hypertension. Unfortunately, his family history is noninformative. 1 hour spent in [id number] evaluation today. CC: Samuel Morgan MD [address] [place] [phone] documented in this encounter Plan of Treatment Upcoming Encounters Date Type Department Care Team (Latest Contact Info) Description 10/06/2024 1:30 PM EST Laboratory Appointment Lab [address] [place] [address] 10/06/2024 3:00 PM EST Office Visit [place] [address] Toney Nelson MD [facility] [place] [address] documented as of this encounter Visit Diagnoses Diagnosis Hypertension, unspecified type documented in this encounter Care Teams Buildings And Grounds Director Relationship Specialty Start Date End Date Samuel Morgan MD [address] [place] [address] PCP - General Family Medicine 12/03/23 documented as of this encounter
--- OUTSIDE RECORDS SUMMARY | 2024-09-02 00:32 | XMS_ITS | Encounter Summary ---
Author Organization [facility] [place] [address] Care Team Providers Care Scientific Advisor Name Role Phone Samuel Morgan MD Primary Care Provider [phone] Reason for Visit * Consultation (Routine) - Closed Specialty Diagnoses / Procedures Referred By Contac t Referred To Contact Vascular Surgery Diagnoses Hypertension, unspecified type Toney Nelson MD [facility] [place] [address] [facility] [address] [place] [address] Referral ID Status Reason Start Date Expiration Date V isits Requested Visits Authorized [id number] Closed Consult, Test & Treat 07/12/2024 07/12/2025 1 1 Encounter Details Date Type Department Care Team (Latest Contact Info) Description 08/29/2024 8:20 AM EST Office [place] [address] Umm Cavanaugh MD [facility] [place] [address] Hyperlipidemia, unspecified hyperlipidemia type; Benign essential hypertension; Neck pain without injury Social History Tobacco Use Types Packs/Day Years Used Date Smoking Tobacco: Never Smokeless Tobacco: Never Sex and Gender Information Value Date Recorded Sex Assigned at Not on file Gender Identity Not on file Sexual Orientation Not on file documented as of this encounter Last Filed Vital Signs Vital Sign Reading Time Taken Comments Blood Pressure 149/93 08/29/2024 1:59 PM EST Pulse 81 08/29/2024 8:30 AM EST Temperature - - Respiratory Rate - - Oxygen Saturation - - Inhaled Oxygen Concentration - - Weight 80.7 kg (178 lb) 08/29/2024 8:27 AM EST Height 175.3 cm (5' 9) 08/29/2024 8:27 AM EST Body Mass Index 26.29 08/29/2024 8:27 AM EST documented in this encounter Patient Instructions * Patient Instructions* Umm Cavanaugh MD - 08/29/2024 8:20 AM EST Send results of any echocardiogram, stress test, EKG, and test that evaluated clogging of the arteries Send results of head and neck MRI Follow-up in 3 months documented in this encounter Progress Notes * Umm Cavanaugh MD - 08/29/2024 8:20 AM EST Images from the original note were not included. [facility] [place] [address] [address] CARDIOVASCULAR MEDICINE CLINIC VISIT NOTE PRIMARY CARE PROVIDER: Samuel Morgan MD REFERRING PROVIDER: Toney Nelson DATE OF SERVICE: 08/29/24 IDENTIFICATION: Marko Aranda is a 64 y.o. patient who presents to clinic for evaluation of hypertension and associated pain. Cardiovascular Problem List: Hypertension Hyperlipidemia HISTORY OF PRESENT ILLNESS: Patient was referred by Dr. Nelson for evaluation of symptoms of shoulder, neck, and arm pain that are associated with episodes of elevated blood pressure. Patient reports that he was diagnosed with high blood pressure about 10 years ago. It was decently well controlled, but then about 4 years ago, he started having more uncontrolled blood pressures and he also started having a pain in his shoulder blade area and it would radiate it the neck and down to the left arm. He described it as feeling like a bruising or soreness. The symptoms last as long as his blood pressure remains elevated. Sometimes, he would have lingering soreness after the blood pressure improves. On occasion, the pain wouldfeel like a weakness though he does not have any physical weakness of the arm. Some physicians had suggested that the pain is what is triggering his blood pressure to go up, but he does not think so. His blood pressure would go up without any particular reason as well. In November2023, he presented to the ER with hypertensive urgency after his blood pressure was persistently elevate and he experienced the neck and arm pain. He mentions leaning forward to watch a movie, looking at a computer screen around the time the BP emergency occurred, and wonders if neck movements could have been a trigger. He has had an EKG, EKG stress testing, carotid ultrasound and echocardiogram (unsure of this). Dr. Nelson mentions them in his note that he was hoping to get a copy, but nothing has been scanned into media. He had an episode of mucous plugging about 2 years ago where he has a respiratory arrest, and had PTSD from it. He was prescribed citalopram, anti- anxiety medication, and also propanolol for anxiety.He did not find the propanolol helpful. He did not appreciate any improvement in his blood pressure with beta blockade. Interestingly, his blood pressure was well controlled for several months after that episode. BP range at home 130-140/high 70-80s. No discrepancy between limb blood pressures. Otherwise, he is regularly active, and runs most days. He often feels the neck tension when he starts running, but then it improves. He saw a encoding machine operator at [facility], and was told that everything was fine with his heart. Re: etiology for his hypertension, he had positive screening for primary aldosteronism. He thinks he used to have sleep apnea, but does no think he has it anymore. No daytime sleepiness. He is scheduled for a head and neck MRI on Thursday PROBLEM LIST: Patient Active Problem List Diagnosis Allergic rhinitis Abdominal pain Deviated nasal septum Enthesopathy of hip region Flushing Nasal polyp Pain in left knee Pain in limb Sleep apnea Unspecified mononeuropathy of left lower limb High serum creatinine Middle insomnia Dizziness Hearing loss Carotid bruit Alkaline phosphatase deficiency Hyperlipidemia Face goes red Vitamin D deficiency Disorder of nail Fatigue Benign essential hypertension MEDICATIONS: Current Outpatient Medications on File Prior to Visit Medication Sig Dispense Refill magnesium 250 mg tablet Take by mouth. SAW WALKER ORAL Take by mouth. UNABLE TO FIND Take by mouth daily. KIDNEY CLEANSE fluticasone propionate (Flonase) 50 mcg/actuation nasal spray, suspension 2 sprays by Each Nare route daily. hydroCHLOROthiazide 12.5 mg tablet Take 1 tablet by mouth every morning. lisinopriL (Zestril) 10 mg tablet Take 1 tablet by mouth daily. melatonin 5 mg tablet Take by mouth nightly. citalopram (CeleXA) 10 mg tablet Take 2 tablets by mouth daily. hydrALAZINE (Apresoline) 25 mg tablet 4 times daily as needed. propranoloL (Inderal) 20 mg tablet Take 20 mg by mouth as needed. No current facility-administered medications on file prior to visit. Family History: No family history on file. 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 , Body mass index is 26.29 kg/m??. General: Middle aged, well appearing, conversant, comfortable Skin: Warm and dry, no rashes or lesions HEENT: Mucous membranes moist JVP: Not elevated Heart: Normal rate, regular rhythm, normal S1, S2, no S3 or S4, no murmurs, rubs, or gallops Vessels: Carotid upstrokes brisk and without bruits bilaterally Pulmonary: Clear to auscultation bilaterally, no wheezes, no rhonchi, no rales Extremities: Warm and well perfused, 2+ radial pulses, no pretibial edema bilaterally Labs: Reviewed outside labs Assessment and Plan: 64 y.o man with history of hypertension (possible hyperaldosteronism) and hyperlipidemia who presents for evaluation of episodes of neck, shoulder, and arm pain that correlate with episodes of uncontrolled hypertension Problems Addressed: Episodic hypertension Intermittent neck, shoulder, and arm pain Overall, patient's pattern of hypertensive spikes without particular trigger is unusual. He is being worked up for causes of secondary hypertension by Dr. Nelson and screened positive of hyperaldosteronism. It is possible that in the setting of hypertension with excessive distention of the thoracic/neck blood vessels that patients can have referred pain that radiates to the neck, shoulder, and arm. On exam, he has no evidence of bruits or pounding pulses. He had an echocardiogram that should capture have captured the ascending aorta, so would like to review that for aortic dimensions. He also reports having had a carotid ultrasound that I would like to review to evaluate the size of his carotid vessels and to evaluate for any abnormalities. He is adopted, and does not know if he has any family history of aneurysm or hypertension. Interestingly, the spikes of blood pressure are episodic, and he did not have any episode of several months after a frightening mucus plug event that caused PTSD. He does meditation, but there could be a component of excessive sympathetic tone, and he may benefit from beta-blockade if work up for hy peraldosteronism/management with spironolactone is not effective. He is planned for MRI head and neck. Will review these results. He will message me when they are done. Depending on the findings would consider MRA chest to evaluate his central arteries and veins given his unusual symptoms. Return to clinic in: 3 months or sooner if needed. Thank you for the opportunity to participate in this patient's cardiovascular care. All questions were answered. A total of 60 minutes were spent on this visit including preparation, record review, time with the patient and documentation. Umm Cavanaugh MD Cardiovascular Medicine, [facility] documented in this encounter Plan of Treatment Upcoming Encounters Date Type Department Care Team (Latest Contact Info) Description 10/06/2024 1:30 PM EST Laboratory Appointment Lab [address] [place] [address] 10/06/2024 3:00 PM EST Office Visit [place] [address] Toney Nelson MD [facility] [place] [address] Scheduled Referrals Name Type Priority Associated Diagnoses Orde r Schedule Referral to Vascular Surgery Outpatient Referral Routine Hypertension, unspecified type Ordered: 07/12/2024 documented as of this encounter Visit Diagnoses Diagnosis Hyperlipidemia, unspecified hyperlipidemia type Benign essential hypertension Essential hypertension, benign Neck pain without injury documented in this encounter Care Teams Scientific Advisor Relationship Specialty Start Date End Date Samuel Morgan MD [address] [place] [address] PCP - General Family Medicine 12/03/23 documented as of this encounter
--- OUTSIDE RECORDS SUMMARY | 2024-09-02 00:32 | XMS_ITS | Encounter Summary ---
Author Organization [facility] Address [facility] [place] [address] Care Team Providers Care Disability Hearing Officer Name Role Phone Samuel Morgan MD Primary Care Provider [phone] Encounter Details Date Type Department Care Team (Late st Contact Info) Description 07/01/2024 External Results [place] [phone] Louann Currie, RN Social History Tobacco Use Types Packs/Day Years Used Date Smoking Tobacco: Never Smokeless Tobacco: Never Sex and Gender Information Value Date Recorded Sex Assigned at Not on file Gender Identity Not on file Sexual Orientation Not on file documented as of this encounter Plan of Treatment Upcoming Encounters Date Type Department Care Team (Latest Contact Info) Description 10/06/2024 1:30 PM EST Laboratory Appointment Lab [address] [place] [phone] 10/06/2024 3:00 PM EST Office Visit [place] [address]-1000 Toney Nelson MD [facility] NEPHROLOGY [place] [id number] documented as of this encounter Procedures Procedure Name Priority Date/Time Associated Diagnosis Comments EXTERNAL URINE LAB RESULTS Routine 02/01/2024 documented in this encounter Results * External Urine Lab Results (02/01/2024) Creatinine, Urine - External 31.62 02/01/2024 Samuel Morgan MD EXTERNAL LAB ORDERAB LES documented in this encounter Visit Diagnoses Not on filedocumented in this encounter Care Teams Disability Hearing Officer Relationship Specialty Start Date End Date Samuel Morgan MD [address] [place] [address] PCP - General Family Medicine 12/03/23 documented as of this encounter
--- OUTSIDE RECORDS SUMMARY | 2024-09-02 00:32 | XMS_ITS | Encounter Summary ---
Author Organization [facility] [place] [address] Care Team Providers Care Bush Regenerator Name Role Phone Samuel Morgan MD Primary Care Provider [phone] Encounter Details Date Type Department Care Team (Latest Contact Info) Description 06/10/2024 Travel Social History Tobacco Use Types Packs/Day Years [...] 1:30 PM EST Laboratory Appointment Lab [address] [place] [address] 10/06/2024 3:00 PM EST Office Visit Nephrology [place] [address] Toney Nelson MD [facility] [place] [address] documented as of this encounter Visit Diagnoses Not on filedocumented in this encounter Care Teams Bush Regenerator Relationship Specialty Start Date End Date Samuel Morgan MD [address] [place] [address] PCP - General Family Medicine 12/03/23 documented as of this encounter
--- OUTSIDE RECORDS SUMMARY | 2024-09-02 00:32 | XMS_ITS | Encounter Summary ---
Author Organization [facility] [place] [address] Care Team Providers Care Chartered Wealth Manager Name Role Phone Samuel Morgan MD Primary Care Provider [phone] Reason for Referral * Diagnostic Test (Routine) - Closed Specialty Diagnoses / Procedures Referred By Contac t Referred To Contact Diagnoses Hypertension, unspecified type Procedures Duplex Study Renal Arteries, Bilat Lauren Cutler APRN [facility] [place] [address] [facility] Vascular Lab [address] [address] Referral ID Status Reason Start Date Expiration Date V isits Requested Visits Authorized [id number] Closed Specialty Service Requested 01/07/2024 01/06/2025 1 1 Reason for Visit * Consultation (Routine) - Authorized Specialty Diagnoses / Procedures Referred By Contac t Referred To Contact Nephrology Diagnoses Hypertensive emergency Hypertension, unspecified type Amrita Cohn MD [address] [place], [place] [id number] [place] [address] [place] [phone] Referral ID Status Reason Start Date Expiration Date Visits Requested Visits Authorized [id number] Authorized Consult, Test & Treat PCP Updated and/or Approved 12/03/2023 12/02/2024 6 6 Encounter Details Date Type Department Care Team (Latest Contact Info) Description 01/07/2024 8:00 AM EDT Office Visit [place] [address] [facility] [place] [address] [facility] [place] [address] Hypertension, unspecified type; Sleep apnea, unspecified type Social History Tobacco Use Types Packs/Day Years Used Date Smoking Tobacco: Never Smokeless Tobacco: Never Tobacco Cessation:Counseling Given: Not Answered Sex and Gender Information Value Date Recorded Sex Assigned at Not on file Gender Identity Not on file Sexual Orientation Not on file documented as of this encounter Last Filed Vital Signs Vital Sign Reading Time Taken Comments Blood Pressure 194/91 01/07/2024 8:00 AM EDT Pulse 75 01/07/2024 8:00 AM EDT Temperature - - Respiratory Rate - - Oxygen Saturation - - Inhaled Oxygen Concentration - - Weight 80.7 kg (178 lb) 01/07/2024 8:00 AM EDT Height 175.3 cm (5' 9) 01/07/2024 8:00 AM EDT Body Mass Index 26.29 01/07/2024 8:00 AM EDT documented in this encounter Progress Notes * Lauren Cutler APRN - 01/07/2024 8:00 AM EDT Images from the original note were not included. [facility] NEPHROLOGY/HYPERTENSION/NEPHROLOGY CONSULTATION Marko Aranda [id number] 1960 ID: [id number] y.o. old male seen for evaluation of Hypertensive Emergency and establishment of care at therequest of Samuel Morgan MD HISTORY OF PRESENTING ILLNESS: The patient presented today accompanied by his Vangie for evaluation of hypertension. The patient stated that he has has Hypertensive since 2014. He had been on Lisinopril 10mgs and HCTZ 12.5 daily. The patient endorses that he has had white coat syndrome as well as he would check his blood pressures at home and he would have normal reading however at varying medical appointments his blood pressures would be elevated. He also mentioned that he has had his BP monitor calibrated in the past. He had a hosiptal encounter in November due to elevated blood pressures at home Systolic blood pressure in the 200s which he went to the [facility] ED and was treated with Labetalol which was ineffective as such he was kept overnight and received hydralazine which made an impact at lowering his blood pressure. It was at this dischrge his prior Lisinopril 10mgs was increased to 20mgs as well as PRN propranolol and hydralazine which he did not use. He stated he also used the 20mgs as prescribed for approximate 5 days and his blood pressure reading at home returned to normal limits then he independently returned to his 10mgs since. However last Thursday at approximately 8:30 am he verbalized experiencing a similar experience his EDencounter with elevated blood pressures with palpitations, neck pains and head pressure at this point he took the hydralazine and by 12MD his blood pressures were better. Today the patient the patient endorses that he feels good. He denies any lightheadedness or dizziness, headaches, SOB, chest pain/pressure. 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 He denies snoring his stated he use to snore but no longer does. He also deneis any likerish use as well as chewing tobacco or illicit drug use For activity he currently uses his [employer] bike 3 times weekly for approximately 30 minutes and walkhis dog daily. He has also cut caffeine out his diet and has since lost 16 lbs. Also healthier foodchoices vegetable limit sugars. He endorses that he has also been evaluated with ECHOgrams and stress margarita which have all been remarkable as well as 24hrs. He however has been taking homeopathic drugs (RAUWOLFIA ORAL) in the last 6weeks HTN: diagnosed in 2014 Diabetes: No known medical history Kidney Stones:No known medical history Smoking: Never Heart or Vascular Disease:No known medical history NSAID use: Ibuprofen use more than 5 years ago Autoimmune Disease:No known medical history EtOH intake:Occasional Cholesterol:No known medical history EDWIN: Sleep apnea ? 6 years ago never use CPAP it has recommended Thyroid Concerns:No known medical history Herbal Supplements:Yes varying homeopathic drugs PAST MEDICAL HISTORY: No past medical history on file. HTN PAST SURGICAL HISTORY: No past surgical history on file. No surgical history MEDICATIONS Outpatient Encounter Medications as of 01/07/2024 Medication Sig Dispense Refill fluticasone propionate (Flonase) 50 mcg/actuation nasal spray, suspension 2 sprays by Each Nare route daily. hydrALAZINE (Apresoline) 25 mg tablet 4 times daily as needed. hydroCHLOROthiazide 12.5 mg tablet Take 1 tablet by mouth every morning. lisinopriL (Zestril) 10 mg tablet Take 1 tablet by mouth daily. propranoloL (Inderal) 20 mg tablet Take 20 mg by mouth as needed. homeopathic drugs (RAUWOLFIA ORAL) Take 7 drops by mouth 2 times daily. melatonin 5 mg tablet Take by mouth nightly. citalopram (CeleXA) 10 mg tablet Take 2 tablets by mouth daily. No facility-administered encounter medications on file as of 01/07/2024. ALLERGIES / ADRs: Allergies Allergen Reactions Penicillin V Potassium Other Reaction(s): Unknown FAMILY HISTORY: No family history on file. Adopted unsure of family history SOCIAL HISTORY: Social History Socioeconomic History Marital status: Spouse name: Not on file Number of children: Not on file Years of education: Not on file Highest education level: Not on file Occupational History Not on file Tobacco Use Smoking status: Never Smokeless tobacco: Never Substance and Sexual Activity Alcohol use: Not on file Drug use: Not on file Sexual activity: Not on file Other Topics Concern Not on file Social History Narrative Not on file Social Determinants of Health Financial Resource Strain: Not on file Food Insecurity: Not on file Transportation Needs: Not on file Physical Activity: Not on file Intimate Partner Violence: Not on file Housing Stability: Not on file REVIEW OF SYSTEMS: System Abnormalities Constitutional No fevers, chills, weight loss Eye No visual changes ENT No headaches, oral mucosa dryness, nose bleeds CV No chest pain, difficulty breathing lying flat, leg swelling, Angina, snoring, apnea Resp No cough, shortness of breath, Covid Vaccine, Flu GI No nausea, vomiting,change in bowel habits/abdominal pain No change in urine output. No pain urinating or blood in urine. Skin No rash or itchy skin, No skin breaks or non-healing wounds Allergy +Allergies on file Endocrine No DM, Lipids, Thyroid Neurologic No weakness. No numbness/ tingling in extremities. Musculoskeletal No joint pain/swelling Lymph No edema Psych PTSD Y N All other systems reviewed and negative. Physical Examination: Vitals: 01/07/24 0800 BP: (!) 194/91 Pulse: 75 Weight: 80.7 kg (178 lb) Height: 175.3 cm (5' 9) Repeat BP:168/81 Pulse 61 Body mass index is 26.29 kg/m??. General: Well appearing, ambulant, appears age stated, neatly and appropriately groomed HEENT: Sclera white. Mucous membranes moist. no lymphadenopathy. CV: S1 and S2 present, HR regular, no murmurs, JVP not elevated. Resp: Lungs clear with no crackles or wheezes, respirations non labored. Abd: Soft + BS, no bruit, non tender. Ext: Warm, no cyanosis, no edema. Skin: No rashes, ecchymosis , or petechiae Neuro: Intact, no asterixis. Psych: Mood and affect appropriate Labs: Patient to obtain labs A/P: Marko Aranda is a 63 y.o. year old male seen today for evaluation of Hypertension. 1. Hypertension Patient has been having variability in his blood pressures. His blood pressures at today's encounter is elevated x 2 checks. He is presently on an SANDI and betablocker as well as a homeopathic drugs (RAUWOLFIA ORAL). He also has not been adhering to the increased medication dosing adjustment that had been recommended prior. The patient also endorses prior diagnosis of sleep apnea 6 years ago but has never uses the recommended CPAP. Nonetheless the blood pressures patterns creates some concerns for renal artery stenosis. Lab work ordered at visit patient unfortunately did not obtain labs post visit as instructed. He will acquire labs on obtaining renal artery duplex. -Renal artery duplex ordered and scheduled -Stop RAUWOLFIA ORAL due to concerns for rebound hypertension. -24hour bp monitor -Continue Lisinopril 20mgs daily 2. Return to clinic 3 months with Labs. Encourage him to let me know if he has any questions or concerns in the interim. Thank you for allowing me to participate in the care of this interesting patient. 65 minutes spent seeing the patient, reviewing the chart, and coordination of care. Lauren Cutler APRN [facility] [address] [facility] [address] 2nd floor, Poultry Barn Manager [address] [place] [address] Please CC to: Samuel Morgan MD [email or web address] * Yunier Sandoval MD - 01/07/2024 8:00 AM EDT All parties consented to the use of OLIVER to document this visit. Subjective History of Present Illness The patient presents for evaluation of hypertensive emergency. He is accompanied by his . The patient has been grappling with hypertension since 2014, coinciding with the initiation of low-dose lisinopril at a dosage of 10 mg daily and hydrochlorothiazide at 12.5 mg, under the supervisionof his primary care physician. Around 11/2023, he sought emergency care due to experiencing palpitat ions during a visit with his son. These palpitations seemed to resolve upon relaxation, enabling him to engage in a movie. His home blood pressure readings were in the 160s, but upon repetition, theywere in the 200s. He sought medical attention at the [facility] Emergency Room, where he was prescribed labetalol, which proved ineffective, leading to an overnight stay. Hydralazine was trialed, which proved beneficial. During his hospitalization, his lisinopril dosage was increased from 10 mg to 20 mg, and propranolol was added to his regimen as needed, as prescribed by his primary care physician. He reported a 5-day course of lisinopril 20 mg, after which he monitored his blood pressure at home, which yielded normal results. He has had his blood pressure calibrated at his primary care physician'soffice, ensuring the accuracy of his readings. He decided to discontinue the 20 mg dose and commence the 10 mg dose, but the symptoms recurred. Despite undergoing echocardiography and stress tests, all of which have yielded unremarkable results. As of last Thursday, he experienced a similar episode of palpitations and elevated blood pressure, which was somewhat alleviated by hydralazine. He is alsoon a neuropathic drug, Rupelfi, which he believes is effective in reducing his blood pressure alongside lisinopril. The patient, an active individual, does not engage in a high-stress job, consumes a diet rich in fruits and vegetables, and has eliminated caffeine from his diet. He has no history ofkidney stones, although he did use ibuprofen within the last 5 years. He suspects whitecoat hypertension, as home readings appear satisfactory, but are elevated during medical visits. Today's blood pressure reading is 194/91 and 168/81. He began taking Rupelfi approximately a month ago following his first hypertensive emergency. Prior to the winter, his blood pressure readings were 160/100, 170, and 180. He found relief from hypertension by consuming a hot box, but his blood pressure would quickly increase after 30 minutes. He suspects he may have experienced nocturnal high blood pressure, such as 180/100. He discontinued Celexa 6 to 8 weeks prior to the movie theater incident, which his primary care physician attributed to stress or anxiety. He resumed Celexa after a 6-week period of normal blood pressure readings, consistently around 120/70. He is under the care of a staff radiologist. Supplemental Information He thinks he has some form of sleep apnea. He was diagnosed with it 6 years ago, but he never really used the CPAP. He has also lost 16 pounds, but he says nothing seems to help. He does have some PTSD as of recent. He was sick with some sort of bug and he had an episode of just stopped breathing and after that he got insomnia and had to be on some medication for PTSD and depression in 11/2022. He spent the first 3 months of his life with his birthmother in a [employer] woman's home. He denies any major trauma or assault. He was not served in the . He would be constantly jolted awake. No one could really figure out why until he saw a therapist. He used to snore, but now he does not atall. He had severe depression last summer. He was sleep deprived for a long period of time. He checks his blood oxygen levels during the night and everything is above 95 during the night. He has an Apple watch. His numbers are always consistently good with the oxygen. He just had a physical assessment. He had an ultrasound of his kidneys after the 11/2023 incident. He did a 24-hour urine test during the hospital visit. The patient denies chewing tobacco or liquorish. He drinks alcohol occasionally. Objective Blood pressure (!) 194/91, pulse 75, height 175.3 cm (5' 9), weight 80.7 kg (178 lb). Physical Exam Lungs are clear. Heart sounds are regular but very much bounding. There is no pitting edema in the musculoskeletal system. Results Assessment & Plan 1. Hypertension. A renal duplex will be conducted to ascertain the presence of any renal artery narrowing. Additionally, a 24-hour blood pressure monitoring will be conducted. Since he is already on anti HTN meds, advised him to avoid if possible Rauwolif serpentina, since reserpine too can decrease the blood pressure. * Jovita Iglesias LPN - 01/07/2024 8:00 AM EDT Per request Lauren Cutler APRN, 24 hour Blood Pressure monitor put on patient. Patient given instruction about monitor, and will call if has questions/problems. Patient given box with paid UPS label to return monitor via UPS for download of report from monitor. Patient verbalized understanding, and was in agreement with this plan. documented in this encounter Plan of Treatment Upcoming Encounters Date Type Department Care Team (Latest Contact Info) Description 10/06/2024 1:30 PM EST Laboratory Appointment Lab [address] [place] [address] 10/06/2024 3:00 PM EST Office Visit [place] [address] [facility] [place] [address] Scheduled Orders Name Type Priority Associated Diagnoses Orde r Schedule _Urinalysis with microscopic Lab Routine Hypertension, unspecified type Expected: 01/07/2024 (Approximate), Expires: 07/08/2024 Albumin Level Lab Routine Hypertension, unspecified type Expected: 01/07/2024, Expires: 01/06/2025 Basic Metabolic Panel (non-fasting) Lab Routine Hypertension, unspecified type Expected: 01/07/2024, Expires: 01/06/2025 CBC (with Diff) Lab Routine Hypertension, unspecified type Expected: 01/07/2024, Expires: 01/06/2025 Uric acid Lab Routine Hypertension, unspecified type Expected: 01/07/2024, Expires: 01/06/2025 U Albumin/Cre Ratio Lab Routine Hypertension, unspecified type Expected: 01/07/2024 (Approximate), Expires: 01/06/2025 Vitamin D, 25-Hydroxy Lab Routine Hypertension, unspecified type Expected: 01/07/2024, Expires: 01/06/2025 Phosphorus Lab Routine Hypertension, unspecified type Expected: 01/07/2024, Expires: 01/06/2025 Protein/Creatinine Ratio, urine Lab Routine Hypertension, unspecified type Expected: 01/07/2024 (Approximate), Expires: 01/06/2025 PTH Lab Routine Hypertension, unspecified type Expected: 01/07/2024, Expires: 01/06/2025 documented as of this encounter Results * Duplex Study Renal Arteries, Bilat (01/18/2024 8:53 AM EDT) VB Text Report Department: Vascular Surgery Lab Patient: [id number] (JEFF MARKO) CPT: 24201 Referring Physician: LAUREN CUTLER ?? Phone: Indications: hypertensive emergency, ? renal artery stenosis Findings: Susan Renal Aorta ? PSV (cm/s): 89 ? EDV (cm/s): 18 Infra Renal Aorta ? RI: 0.80 Renal Artery Ostium, Right ? PSV (cm/s): 84 ? EDV (cm/s): 22 ? RAR: 0.9 ? RI: 0.74 Renal Artery Proximal, Right ? PSV (cm/s): 65 ? EDV (cm/s): 16 ? RAR: 1.4 ? RI: 0.74 Renal Artery Mid, Right ? PSV (cm/s): 61 ? EDV (cm/s): 14 ? RAR: 0.7 ? RI: 0.77 Renal Artery Distal, Right ? PSV (cm/s): 70 ? EDV (cm/s): 20 ? RAR: 0.8 ? RI: 0.72 Upper Pole Renal Parenchyma, Right ? PSV (cm/s): 21 ? EDV (cm/s): 6 ? RI: 0.74 Mid Pole Renal Parenchyma, Right ? PSV (cm/s): 19 ? EDV (cm/s): 6 ? RI: 0.68 ? AT (ms): 70 Lower Pole Renal Parenchyma, Right ? PSV (cm/s): 19 ? EDV (cm/s): 7 ? RI: 0.64 Renal Hilum, Right ? PSV (cm/s): 56 ? EDV (cm/s): 22 ? AT (ms): 70 Kidney Length, Right ? Length (cm): 10.7 Renal Vein, Right ? Patent: Patent Renal Artery Ostium, Left ? PSV (cm/s): 60 ? EDV (cm/s): 15 ? RAR: 0.7 ? RI: 0.76 Renal Artery Proximal, Left ? PSV (cm/s): 106 ? EDV (cm/s): 29 ? RAR: 1.2 ? RI: 0.73 Renal Artery Mid, Left ? PSV (cm/s): 70 ? EDV (cm/s): 20 ? RAR: 0.8 ? RI: 0.72 Renal Artery Distal, Left ? PSV (cm/s): 66 ? EDV (cm/s): 23 ? RAR: 0.7 ? RI: 0.65 Mid Pole Renal Parenchyma, Left ? PSV (cm/s): 19 ? EDV (cm/s): 6 ? RI: 0.67 Lower Pole Renal Parenchyma, Left ? PSV (cm/s): 22 ? EDV (cm/s): 6 ? RI: 0.73 Renal Hilum, Left ? PSV (cm/s): 34 ? EDV (cm/s): 10 ? AT (ms): 40 Kidney Length, Left ? Length (cm): 11.4 Renal Vein, Left ? Patent: Patent Interpretation: Right: Patent main renal artery with no evidence of hemodynamically significant stenosis. Patent main renal vein. Left: Patent main renal artery with no evidence of hemodynamically significant stenosis. Patent main renal vein. Comparison: ??No previous study in our vascular lab database for comparison. Electronically Signed by: KAREN ECHAVARRIA on 2024-01-21 10:58:36 AM VASCUBASE VB Text Report End of Report VAS[facility] 01/18/2024 8:53 AM EDT Lauren Cutler APRN VASCULAR ORDERABLES Performing Organization Address City/State/[facility] Co de Phone Number VASCUBASE documented in this encounter Visit Diagnoses Diagnosis Hypertension, unspecified type Sleep apnea, unspecified type documented in this encounter Care Teams Chartered Wealth Manager Relationship Specialty Start Date End Date Samuel Morgan MD [address] [place] [address] PCP - General Family Medicine 12/03/23 documented as of this encounter
--- OUTSIDE RECORDS SUMMARY | 2024-09-02 00:32 | XMS_ITS | Clinical Summary ---
Author Organization [facility] Address [address] [place] [address] Care Team Providers Care Mechanic Name Role Phone Soraya Flowers Primary Care Provider [phone] Social History Tobacco Use Types Packs/Day Years Used Date Smoking Tobacco: Never Assessed Interpersonal Safety Answer Date Record ed Physically Hurt Never 03/04/2020 Verbally Threaten Not on file 03/04/2020 Sex and Gender Information Value Date Recorded Sex Assigned at Not on file Legal Sex Male 18:53 EST Gender Identity Not on file Sexual Orientation Not on file Plan of Treatment Health Maintenance Due Date Last Done Comments Hepatitis C Screen 1960 COVID-19 Vaccine (2023-25 season) 2024 RSV Immunization ( o r 60+ Years) (1 - 1-dose 75+ series) 2035 Insurance MEDICAID [place] Care Teams Mechanic Relationship Specialty Start Date End Date Soraya Flowers FNP [address] [place] [address] [facility] - General 05/02/11
--- OUTSIDE RECORDS SUMMARY | 2024-09-02 00:32 | XMS_ITS | Encounter Summary ---
Author Organization [facility] [address] Care Team Providers Care Cross Country Truck Driver Name Role Phone Samuel Morgan MD Primary Care Provider [phone] Encounter Details Date Type Department Care Team (Latest Contact Info) Description 08/29/2024 Travel Social History Tobacco Use Types Packs/Day [...] 1:30 PM EST Laboratory Appointment Lab [address] [place] [address] 10/06/2024 3:00 PM EST Office Visit [place] [address] Toney Nelson MD [facility] [place] [address] documented as of this encounter Visit Diagnoses Not on filedocumented in this encounter Care Teams Cross Country Truck Driver Relationship Specialty Start Date End Date Samuel Morgan MD [address] [place] [address] PCP - General Family Medicine 12/03/23 documented as of this encounter
--- OUTSIDE RECORDS SUMMARY | 2024-09-02 00:32 | XMS_ITS | Clinical Summary ---
Author Organization [facility] Address [facility] [place] [address] Care Team Providers Care Accounting Software Specialist Name Role Phone Samuel Morgan MD Primary Care Provider [phone] Allergies Active Allergy Reactions Criticality Noted Date Comments Penicillin V Potassium 01/06/2024 Other Reaction(s): Unknown Medications Medication Sig Dispensed Refills Start Date End Date Status citalopram (CeleXA) 10 mg tablet Take 2 tablets by mouth daily. Active fluticasone propionate (Flonase) 50 mcg/actuation nasal spray, suspension 2 sprays by Each Nare route daily. Active hydrALAZINE (Apresoline) 25 mg tablet 4 times daily as needed. Active hydroCHLOROthiazide 12.5 mg tablet Take 1 tablet by mouth every morning. Active lisinopriL (Zestril) 10 mg tablet Take 1 tablet by mouth daily. Active propranoloL (Inderal) 20 mg tablet Take 20 mg by mouth as needed. Active melatonin 5 mg tablet Take by mouth nightly. Active magnesium 250 mg tablet Take by mouth. Active SAW PALMETTO ORAL Take by mouth. Act yrn UNABLE TO FIND Take by mouth daily. 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 Hyperlipidemia 05/26/2023 Face goes red 04/05/2018 Vitamin D deficiency 04/05/2018 Disorder of nail 01/26/2018 Fatigue 01/26/2018 Benign essential hypertension 01/25/2018 Encounters Date Type Department Care Team Description 08/29/2024 8:20 AM EST Office [place] [address] Umm Cavanaugh MD Hyperlipidemia, unspecified hyperlipidemia type; Benign essential hypertension; Neck pain without injury 08/29/2024 Travel 07/01/2024 External Results Ne[place] [address] Louann Currie RN 06/13/2024 Telephone [place] [address] Melissa Mccrary 06/10/2024 10:00 AM EST Office Visit [place] [address] Toney Nelson MD Hypertension, unspecified type 06/10/2024 Travel 06/06/2024 Orders Only [place] [address] Toney Nelson MD Hypertension, unspecified type 06/06/2024 Telephone [place] [address] Melissa Mccrary 06/03/2024 Telephone [place] [address] Edyta Patel from Last 3 Months Immunizations Name Administration Dates Next Due Covid-19, Unknown Formulation 05/03/2021 Social History Tobacco Use Types Packs/Day Years Used Date Smoking Tobacco: Never Smokeless Tobacco: Never Tobacco Cessation:Counseling Given: Not Answered Sex and Gender Information Value Date Recorded Sex Assigned at Not on file Gender Identity Not on file Sexual Orientation Not on file Last Filed Vital Signs Vital Sign Reading [...] Mass Index 26.29 08/29/2024 8:27 AM EST Plan of Treatment Upcoming Encounters Date Type Department Care Team (Latest Contact Info) Description 10/06/2024 1:30 PM EST Laboratory Appointment Lab [address] [address] 10/06/2024 3:00 PM EST Office Visit Ne[place] [address] Toney Nelson MD [facility] [place] [address] Health Maintenance Due Date Last Done Comments CT Colonography 1960 Colonoscopy 1960 Colorectal Cancer Screening 1960 FIT DNA 1960 FIT 1960 Sigmoidoscopy (10 year) with FIT yearly 1960 Sigmoidoscopy 1960 HIV screen 1978 Hepatitis C Screening 1978 Lipid Screening 1978 Tetanus/Diphtheria/Pertussis Vaccines (1 - Tdap) 05/07 Diabetes Screening (HgbA1C or Glucose) 2000 Pneumoccocal Vaccine: 50+ (1 of 1 - PCV) 2010 Zoster vaccine (1 of 2) 2010 Advance Directive 2015 Covid-19 Vaccine (2 - season) 04/03/202408/2020 Influenza (Flu) vaccine (1 o f 1 - Influenza standard series) 04/03/2024 Procedures Procedure Name Priority Date/Time Associated Diagnosis Comments LAB SCAN 07/25/2024 12:00 AM EST LAB SCAN 07/13/2024 12:00 AM EST LAB SCAN 06/29/2024 12:00 AM EST LAB SCAN 06/29/2024 12:00 AM EST LAB SCAN 06/08/2024 12:00 AM EST from Last 3 Months Results * Scan Doc: Lab (07/25/2024 12:00 AM EST) Only the most recent of5 resultswithin the time period is included. Narrative 07/25/2024 12:00 AM EST Ordered by an unspecified provider. Scanning Provider MEDIA MGR SCAN EXT O RDR/RSLT from Last 3 Months Care Teams Accounting Software Specialist Relationship Specialty Start Date End Date Samuel Morgan MD [address] [place], [place] [id number] PCP - General Family Medicine 12/03/23
--- OUTSIDE RECORDS SUMMARY | 2024-09-02 00:32 | XMS_ITS | Referral Summary ---
Author Organization [facility] Address [address] [place] [address] Care Team Providers Care Gopherman Name Role Phone Soraya Flowers Primary Care Provider [phone] Social History Tobacco Use Types Packs/Day Years Used Date Smoking Tobacco: Never Assessed Interpersonal Safety Answer Date Record ed Physically Hurt Never 03/04/2020 Verbally Threaten Not on file 03/04/2020 Sex and Gender Information Value Date Recorded Sex Assigned at Not on file Legal Sex Male 18:53 EST Gender Identity Not on file Sexual Orientation Not on file Plan of Treatment Not on file Insurance MEDICAID [place] Care Teams Gopherman Relationship Specialty Start Date End Date Soraya Flowers FNP [address] [place] [address] PCP - General 05/02/11
--- OUTSIDE RECORDS SUMMARY | 2024-09-02 00:32 | XMS_ITS | Encounter Summary ---
Author Organization [facility] [place] [address] Care Team Providers Care Billet Assembler Name Role Phone Samuel Morgan MD Primary Care Provider [phone] Encounter Details Date Type Department Care Team (Latest Contact Info) Description 01/18/2024 Travel Social History Tobacco Use Types Packs/Day [...] 1:30 PM EST Laboratory Appointment Lab [address] [place] [address] 10/06/2024 3:00 PM EST Office Visit Nephrology [place] [address] Toney Nelson MD [facility] [place] [address] documented as of this encounter Visit Diagnoses Not on filedocumented in this encounter Care Teams Billet Assembler Relationship Specialty Start Date End Date Samuel Morgan MD [address] [place] [address] PCP - General Family Medicine 12/03/23 documented as of this encounter
--- OUTSIDE RECORDS SUMMARY | 2024-09-02 00:32 | XMS_ITS | Patient Health Record ---
Author Organization [facility] Address [address] [place] [address] Care Team Providers Care Food Inspector Name Role Phone SALAS ENGLISH MD Primary Care Provider Unavail able Tanner Campo [phone] ALLERGIES Allergen (clinical drug ingredient) Drug/Non Drug Allergy documented on EMR Reaction Allergy Type Onset Date Status penicillin V Penicillin V Potassium Unknown Drug Allergy Active REASON FOR REFERRAL No Information MEDICATIONS Medication SIG (Take, Route, Frequency, Duration) Notes Start Date End Date Status hydroCHLOROthiazide 25 MG 1 tablet in th e morning Orally Once a day for [...] Sleep apnea (G47.30) Active confirmed Sleep apnea (59720348) Problem Abdominal pain (R10.9) Active confirmed Abdominal pain (02877536) Problem Foot pain, left (M79.672) Active confirmed Pain in limb (40337575) Problem HTN (hypertension ) (I10) Active confirmed Hypertension (32797044) Problem Allergic rhinitis (J30.9) Active confirmed Allergic rhinit is (08707963) Problem Ventral hernia (K43.9) Active confirmed Ventral hernia (302279708) Problem Knee pain, left (M25.562) Active confirmed Problem Deviated nasal septum (J34.2) Active confirmed Deviated nasal septum (769384708) Problem Chest pain, atypical (R07.89) Active confirmed Chest pain (80943203) Problem Nasal polyp (J33.9) Active confirmed Problem Iliotibial band syndrome, left leg (M76.32) Active confirmed Enthesopathy of hip region (68445960) Problem Flushing (R23.2) Active confirmed Flushing (35202843) Problem Neuritis of left foot (G57.92) Active confirmed Mononeuropathy of lower limb (994487999) Secondary to pressure PLAN OF TREATMENT No Information Insurance Providers Payer Name Payer Address Payer Phone Subscriber Number Group Number Insured Name Patient Relationship to Insured Coverage Start Date Coverage End Date MEDICAID [place] [employer] [place], [place] [id number] SHEILA AGUILAR Self - patient is the insured SELF PAY [place] [address] [address] SHEILA AGUILAR Self - patient is the [...]
--- OUTSIDE RECORDS SUMMARY | 2024-09-02 00:32 | XMS_ITS | Encounter Summary ---
Author Organization [facility] Address [address] [place] [address] Care Team Providers Care Gas Operations Superintendent Name Role Phone Unknown, Provider Primary Care Provider Denis ilsourav Encounter Details Date Type Department Care Team (Late st Contact Info) Description 04/30/2011 Results Only [facility] [place] [address] [place], [place] [id number] Dion Shah MD [address] [place] [address] Social History Tobacco Use Types Packs/Day Years Used Date Smoking Tobacco: Never Assessed Sex and Gender Information Value Date Recorded Sex Assigned at Not on file Legal Sex Male 18:53 EST Gender Identity Not on file Sexual Orientation Not on file documented as of this encounter Plan of Treatment Not on file documented as of this encounter Procedures Procedure Name Priority Date/Time Associated Diagnosis Comments SURGICAL PATHOLOGY Routine 04/30/2011 0:00 EDT documented in this encounter Results * SURGICAL PATHOLOGY (04/30/2011 0:00 EDT) Pathology Report: SURGICAL PATHOLOGY REPORT ? Reports generated via electronic interface contain original data; ? however they are lacking the format of the original report. ? Caution should be taken when reading/interpreti ng unformatted reports. ? Name: ? JEFF, SHEILA ? Accession #: ? [id number] ? : ? 1960 (Age: 50) ??M ? Collect Date: ? 04/30/2011 ? Location: ? [facility] ? Receive Date: ? 05/01/2011 ? Provider: DION WALKO MD ? Copy to: JAIME HERRERA LOAD DROPPER ? Final Pathologic Diagnosis: ? 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 ? Document reviewed and electronically signed by: ? KARIE J BUTNOR MD ? Report ??Date: 05/02/2011 16:38 ? By the signature above, the attending physician certifies that he/she has ? personally conducted a gross and/or microscopic examination of the described ? specimens and rendered or confirmed the above diagnosis. ? Specimen(s) Received: ? Lipoma R buttock ? Clinical History: ? Symptomatic lipoma R buttock ? Gross Description: ? Received in formalin labelled Aranda, Sheila and lipoma R buttock is a 3.3 x 2.0 cm, white skin ellipse excised to a depth of 1.1 cm. ??The specimen ? weighs 4.0 grams. The cutaneous surface is centrally convex and bulging over an area measuring 1.7 x 1.5 cm by 1.1 cm in height. ??The cutaneous surface is pale mckee-white. ??The resection margin is black-inked. ??Serial sections reveal that ?? the bulging portion of the specimen beneath the dermis is pale yellow and firm. The subcutaneous tissue beneath this area is composed of light yellow, lobular ?? adipose tissue. ??Custodian Supervisor sections of the specimen are submitted as ? follows: ? BLOCK QUINTERO ? A1,A2 ?Two central transverse sections ? A3 ?Perpendicular sections from both ends of specimen (sections in A3 do not include most distal ?tips of skin) ? (J. Tessitore)/cjh ? End of Report ? JERSON MANCINI 04/30/2011 05/01/2011 8:2 7 EDT us Dion Shah MD PATHOLOGY ORDERABLES Final Resul t [facility] [address] [place] [address] documented in this encounter Visit Diagnoses Not on filedocumented in this encounter Care Teams Gas Operations Superintendent Relationship Specialty Start Date End Date Unknown, Provider, PCP - General 04/30/11 05/01/11 documented as of this encounter
--- OUTSIDE RECORDS SUMMARY | 2024-09-02 00:32 | XMS_ITS | Encounter Summary ---
Author Organization [facility] Address [facility] [place] [address] Care Team Providers Care Honey Liquefier Name Role Phone Samuel Morgan MD Primary Care Provider [phone] Encounter Details Date Type Department Care Team (Late st Contact Info) Description 06/13/2024 Telephone Neph[place] [address] Melissa Mccrary Social History Tobacco Use Types [...] 1:30 PM EST Laboratory Appointment Lab [address] [place] [address] 10/06/2024 3:00 PM EST Office Visit Neph[place] [address] Toney Nelson MD [facility] [place] [address] documented as of this encounter Visit Diagnoses Not on filedocumented in this encounter Care Teams Honey Liquefier Relationship Specialty Start Date End Date Samuel Morgan MD [address] [place] [address] PCP - General Family Medicine 12/03/23 documented as of this encounter
--- OUTSIDE RECORDS SUMMARY | 2024-09-02 00:32 | XMS_ITS | Encounter Summary ---
Author Organization [place] [address] Care Team Providers Care State Archivist Name Role Phone Samuel Morgan MD Primary Care Provider [phone] Reason for Visit * Diagnostic Test (Routine) - Closed Specialty Diagnoses / Procedures Referred By Contac t Referred To Contact Diagnoses Hypertension, unspecified type Procedures Duplex Study Renal Arteries, Nataliia Mejia APRN [facility] [place] [address] [facility]ascular Lab [address] [place] [address] Referral ID Status Reason Start Date Expiration Date V isits Requested Visits Authorized [id number] Closed Specialty Service Requested 01/07/2024 01/06/2025 1 1 Encounter Details Date Type Department Care Team (Late st Contact Info) Description 01/18/2024 9:00 AM EDT Tech [place] [address] Gill Julien Hypertension, unspecified type Social History Tobacco Use [...] 1:30 PM EST Laboratory Appointment Lab [address] [place] [address] 10/06/2024 3:00 PM EST Office Visit Neph[place] [address] Toney Nelson MD [facility] [place] [address] documented as of this encounter Procedures Procedure Name Priority Date/Time Associated Diagnosis Comments RENAL DUPLEX COMPLETE Routine 01/18/2024 8:53 AM EDT Hypertension, unspecified type documented in this encounter Results * Duplex Study Renal Arteries, Bilat (01/18/2024 8:53 AM EDT) VB Text Report Department: Vascular Surgery Lab Patient: [id number] (SHEILA AGUILAR) CPT: [id number] Referring Physician: NATALIIA ODONNELL ?? Phone: Indications: hypertensive emergency, ? renal [...] of Report [facility] 01/18/2024 8:53 AM EDT Nataliia Odonnell FRAMING MANAGER VASCULAR ORDERABLES [facility] documented in this encounter Visit Diagnoses Diagnosis Hypertension, unspecified type documented in this encounter Care Teams State Archivist Relationship Specialty Start Date End Date Samuel Morgan MD [address] [place] [address] PCP - General Family Medicine 12/03/23 documented as of this encounter
--- OUTSIDE RECORDS SUMMARY | 2024-09-02 00:32 | XMS_ITS | Encounter Summary ---
Author Organization [facility] Address [facility] [place] [address] Care Team Providers Care Shank Sorter Name Role Phone Samuel Morgan MD Primary Care Provider [phone] Encounter Details Date Type Department Care Team (Late st Contact Info) Description 01/06/2024 Orders Only Nephrology Hypertension at [place] [phone] Disha Shabazz CMA Social History Tobacco Use Types Packs/Day Years Used Date Smoking Tobacco: Never Assessed Sex and Gender Information Value Date Recorded Sex Assigned at Not on file Gender Identity Not on file Sexual Orientation Not on file documented as of this encounter Plan of Treatment Upcoming Encounters Date Type Department Care Team (Latest Contact Info) Description 10/06/2024 1:30 PM EST Laboratory Appointment Lab [address] [place] [address] 10/06/2024 3:00 PM EST Office Visit Ne[place] [address] Toney Nelson MD [facility] [address] documented as of this encounter Visit Diagnoses Not on filedocumented in this encounter Care Teams Shank Sorter Relationship Specialty Start Date End Date Samuel Morgan MD [address] [place] [address] PCP - General Family Medicine 12/03/23 documented as of this encounter
--- OUTSIDE RECORDS SUMMARY | 2024-09-02 00:32 | XMS_ITS | Encounter Summary ---
[place] [address] Care Team Providers Care Clearing Supervisor Name Role Phone Samuel Morgan MD Primary Care Provider [phone] Reason for Referral * Consultation (Routine) - Authorized Specialty Diagnoses / Procedures Referred By Contac t Referred To Contact Nephrology Diagnoses Hypertensive emergency Hypertension, unspecified type Amrita Cohn MD [address] [place] [address] [facility] [place] [facility] [address] [place] [phone] Referral ID Status Reason Start Date Expiration Date Visits Requested Visits Authorized [id number] Authorized Consult, Test & Treat PCP Updated and/or Approved 12/03/2023 12/02/2024 6 6 Encounter Details Date Type Department Care Team (Latest Contact Info) Description 12/03/2023 Transcribe Orders eDH Incoming Referrals [phone] Amrita Cohn MD Hypertensive emergency; Hypertension, unspecified type Social History Tobacco Use [...] 1:30 PM EST Laboratory Appointment Lab [address] [place] [address] 10/06/2024 3:00 PM EST Office Visit Nephrology [place] [address] Toney Nelson MD [facility] [place] [address] Scheduled Referrals Name Type Priority Associated Diagnoses Orde r Schedule Referral to Nephrology Outpatient Referral Routine Hypertensive emergency Hypertension, unspecified type Ordered: 12/03/2023 documented as of this encounter Visit Diagnoses Diagnosis Hypertensive emergency Unspecified essential hypertension Hypertension, unspecified type documented in this encounter Care Teams Clearing Supervisor Relationship Specialty Start Date End Date Samuel Morgan MD [address] [place] [address] PCP - General Family Medicine 12/03/23 documented as of this encounter
--- OUTSIDE RECORDS SUMMARY | 2024-09-02 00:32 | XMS_ITS | Encounter Summary ---
[place] [address] Care Team Providers Care Harbor Police Launch Commander Name Role Phone Samuel Morgan MD Primary Care Provider [phone] Encounter Details Date Type Department Care Team (Late st Contact Info) Description 06/03/2024 Telephone Neph[place] [address] Edyta Patel Social History Tobacco Use Types Packs/Day Years Used Date Smoking Tobacco: Never Smokeless Tobacco: Never Sex and Gender Information Value Date Recorded Sex Assigned at Not on file Gender Identity Not on file Sexual Orientation Not on file documented as of this encounter Miscellaneous Notes * Telephone Encounter - Edyta Patel - 06/03/2024 1:20 PM EDT LM for patient to call and schedule a follow up appointment. Please scheduled with on 510:00 am for 1 hour. If patient can't do that date or time please schedule with another provider, pls don't schedule with documented in this encounter Plan of Treatment Upcoming Encounters Date Type Department Care Team (Latest Contact Info) Description 10/06/2024 1:30 PM EST Laboratory Appointment Lab [address] [place] [address] 10/06/2024 3:00 PM EST Office Visit Neph[place] [address] Toney Nelson MD [facility] [place] [address] documented as of this encounter Visit Diagnoses Not on filedocumented in this encounter Care Teams Harbor Police Launch Commander Relationship Specialty Start Date End Date Samuel Morgan MD [address] [place] [address] PCP - General Family Medicine 12/03/23 documented as of this encounter
--- OUTSIDE RECORDS SUMMARY | 2024-09-02 00:32 | XMS_ITS | Encounter Summary ---
Author Organization [facility] Address [facility] [place] [address] Care Team Providers Care Radial Drill Press Operator Name Role Phone Samuel Morgan MD Primary Care Provider [phone] Encounter Details Date Type Department Care Team (Late st Contact Info) Description 02/17/2024 External Results Ne[place] [address] Disha Shabazz CMA Social History Tobacco Use [...] 1:30 PM EST Laboratory Appointment Lab [address] [place] [address] 10/06/2024 3:00 PM EST Office Visit [place] [address] Toney Nelson MD [facility] [place] [address] documented as of this encounter Procedures Procedure Name Priority Date/Time Associated Diagnosis Comments U ALBUMIN/CRE RATIO Routine 02/01/2024 PHOSPHORUS Routine 02/01/2024 documented in this encounter Results * U Albumin/Cre Ratio (02/01/2024) Albumin / Creatinin Ratio, Urine Comment:Unable to Calculate Albumin, Urine <1.3 Creatinine, Urine 31.62 Urine 02/01/2024 Historical Provider URINE ORDERABLES * Phosphorus (02/01/2024) Phosphorus 3.7 Uric Acid 5.2 Blood 02/01/2024 Historical Provider CHEMISTRY ORDERAB LES documented in this encounter Visit Diagnoses Not on filedocumented in this encounter Care Teams Radial Drill Press Operator Relationship Specialty Start Date End Date Samuel Morgan MD [address] [place] [address] PCP - General Family Medicine 12/03/23 documented as of this encounter
--- OUTSIDE RECORDS SUMMARY | 2024-09-02 00:32 | XMS_ITS | Encounter Summary ---
Author Organization [facility] [place] [address] Care Team Providers Care Project Engineering Manager Name Role Phone Samuel Morgan MD Primary Care Provider [phone] Encounter Details Date Type Department Care Team (Late st Contact Info) Description 06/06/2024 Orders Only Ne[place] [phone] Toney Nelson MD [facility] [place] [address] Hypertension, unspecified type Social History Tobacco Use [...] 1:30 PM EST Laboratory Appointment Lab [address] [place] [phone] 10/06/2024 3:00 PM EST Office Visit [place] [phone] Toney Nelson MD [facility] [place] [address] Scheduled Orders Name Type Priority Associated Diagnoses Orde r Schedule Urinalysis with reflex Culture Lab STAT Hypertension, unspecified type Expected: 06/06/2024 (Approximate), Expires: 12/06/2024 Comprehensive metabolic panel Non-fasting Lab STAT Hypertension, unspecified type Expected: 06/06/2024 (Approximate), Expires: 12/04/2024 CBC (with Diff) Lab STAT Hypertension, unspecified type Expected: 06/06/2024 (Approximate), Expires: 06/06/2025 Uric acid Lab STAT Hypertension, unspecified type Expected: 06/06/2024 (Approximate), Expires: 12/06/2024 Magnesium Lab STAT Hypertension, unspecified type Expected: 06/06/2024 (Approximate), Expires: 12/06/2024 Phosphorus Lab STAT Hypertension, unspecified type Expected: 06/06/2024 (Approximate), Expires: 12/06/2024 Aldosterone Lab STAT Hypertension, unspecified type Expected: 06/06/2024 (Approximate), Expires: 06/07/2025 Renin Activity Lab STAT Hypertension, unspecified type Expected: 06/06/2024 (Approximate), Expires: 12/06/2024 documented as of this encounter Visit Diagnoses Diagnosis Hypertension, unspecified type documented in this encounter Care Teams Project Engineering Manager Relationship Specialty Start Date End Date Samuel Morgan MD [address] [place] [address] PCP - General Family Medicine 12/03/23 documented as of this encounter
--- OUTSIDE RECORDS SUMMARY | 2024-09-02 00:32 | XMS_ITS | Encounter Summary ---
Author Organization [facility] [place] [address] Care Team Providers Care Tuber Operator Name Role Phone Samuel Morgan MD Primary Care Provider [phone] Encounter Details Date Type Department Care Team (Latest Contact Info) Description 01/07/2024 Travel Social History Tobacco Use Types Packs/Day [...] 1:30 PM EST Laboratory Appointment Lab [address] [place] [address] 10/06/2024 3:00 PM EST Office Visit Ne[place] [phone] Toney Nelson MD [facility] [place] [address] documented as of this encounter Visit Diagnoses Not on filedocumented in this encounter Care Teams Tuber Operator Relationship Specialty Start Date End Date Samuel Morgan MD [address] [place] [address] PCP - General Family Medicine 12/03/23 documented as of this encounter
--- OUTSIDE RECORDS SUMMARY | 2024-09-02 00:33 | XMS_ITS | Data Portability ---
Author Organization [place] - [facility], MAIN OFFICE Address [place] [address] Assessment Encounter Date Assessment Date Assessment LastModified by Organization Details LastModified Time 05/06/2018 05/06/2018 pt rto for fu on GFR low- didnt get bloodwork today- reviewed HTN hhistory- answered numerous questions- advised to repeat test in case lab error and'or normal and refereal would be based on results- his redness in face he brought up bc he never notivced until i pointed it out last vist- today in exam it had a somewhat peculiar patter noted---found some literature to help with decreae- may send referral for derm??will wait for results of CMP etc. I spent a total of 40 minutes face to face time with this patient and 35minutes of that time was spent in counseling and coordination of care with that patient as described in the progress note and /or: Risk factor reduction other education diagnostic results and impressions instructions for treatment and follow-up Not available 05/10/2018 21:22:53 05/20/2018 05/20/2018 pt rto for fu with low GFR- lab corrected these results and past said he was not put in as a MALE. therefore no GFR issues. BP seems to be stable and ideal on watch monitor. I spent a total of 15 minutes face to face time with this patient and all of that time was spent in counseling and coordination of care with that patient as described in the progress note and /or: Importance of compliance with treatment plan with diet and BP health diagnostic results and impressions Risk factor reduction Not available 06/01/2018 18:07:44 05/26/2023 05/26/2023 Patient is a 63yo male who came into the office today with atraumatic chest pain. Patient reports symptoms as noted and is in stable condition. Further testing is not required. Follow up as noted below.. Patient presents with chest pain that is atypical- RBBB incomplete was found on exercise stress test-normal echo, normal 48 halter monitor, low to normal GFr at times- episodes of left sided arm and chest pain accompany BP and resolve when BP lowers according to pt- he wants me to fix this as all other practitioner have not been able to do so- and he doesnt want to be on medication although he sees benefit and need for them at this time, discussed not going off anything abruptly and without discussion with PCP. today he left with NAttokinase and an herbal tincture with antiviral/adapt ogenic support- he also reports sxs have gotten worse sine covid injections a piece of metal was found in his right humerous- with no previous surgeries- possibly a needle head dislodged was brought up with PCP- very odd history of taking lisnopril- never tried amlopidine or other meds- localized pain - doesnt think related to lisinopril also on hctz and celexa since this started-he feels after working with therapist sudden awakening and fligt orflight response is to trauma of not breathing for 40 secs i psent 60 minutes with this patient reviewing hostory, lab resports from 2022, suggested further workup, discussed testing outside conventional- neurohormone, 50 was psent face to face consult and as described in PN Not available 05/26/2023 18:26:16 07/09/2023 07/09/2023 pt rto after starting herbs for adrenal support and blood pressure support- reports BP has not elevated and feels it is working- he has hearing loss issues he thinks may be menieres- he will be seen by ENT upcoming in 2023- will check for carotid bruit as he hears a lot of pulsating and swiching in ears accompanied by dizziness and hearing loss that comes and goes i psent 45 minutes with pt and 35 minutes were face to face consultation, instructions for workup and treatemnt Not available 09/01/2023 06:33:13 Plan of Treatment Reminders Order Date Submit Date Provider Last Modified By Organization Details Last Modified Time Details Appointments None recorded. Lab D-dimer, quant, plasma 2022 023 [facility] [address] [place] [address] [facility] [place], [address], 4 05:01:35 CK (creatine kinase), total, serum 2022 023 [facility] ), [address] [place] [address] [place], [address], 4 05:01:35 CBC w/ diff 2022 023 [facility] ), [address] [place] [address] [place] [facility] [place], [address], 4 05:01:35 zinc, RBC 2022 TER[facility] Not available 4 05:00:59 vitamin D, 25-hydroxy, total, serum 2022 TER[facility] Not available 4 05:00:59 CMP, serum or plasma 2022 [facility] ), [address] [place] [address] [place], [address], 4 05:01:35 apolipoprot ein B/apolipopr otein A1 ratio 2022 [facility] ), [address] [place] [address] [place] [facility] [place], [address], 4 05:01:35 homocystein e, serum or plasma 2022 023 [facility] [address] [place] [address] [place] [facility] [place], [address], 4 05:01:35 HbA1c (hemoglobin A1c), blood 2022 023 [facility] ), [address] [place] [address] [facility] [place], [address], 4 05:01:35 Referral None recorded. Procedures None recorded. Surgeries None recorded. Imaging US, duplex, carotid artery 2022 023 [facility], [address] [place], [address], 4 05:01:04 Medication Orders None recorded. Patient TargetsNo targets recorded. Patient Instructions Encounter Date Encounter Id Patient Instructions Last Modified By Organization Details Last Modified Time 05/06/2018 [id number] 1. veggie pepper - instead of steak seasoning 2. I have pasted some underlying causes of flushing or hypervasculature of the skin: foods that may trigger flushing include tyramine, histamine, monosodium glutamate, aldehyde, nitrites, sulfites, and higher chain alcohols. Spicy foods are particularly associated with flushing because of capsaicin, a component of red peppers and cayenne pepper that causes a mild inflammatory effect. Hot beverages and alcohol are also known triggers.- please take note if the flushing seen today in the office disappears- perhaps your could take pictures of neck and abdomne front and back to note changes if it comes and goes... 3. continue to monitor BP return to discuss lab results Not available 05/10/2018 21:22:33 05/20/2018 [id number] 1. Continue eati ng healthy low salt/sodium and exercising BP looks great! Dont forget to eat healthy Fats: salmon, etc to help lower cholesterol levels:ideal under 200 and LD less than 100 (yours 133) but your ratios look ggo d so we will retest in 1 yr. Do not need to return for a year- unless new problem- KD GFR corrected to normal based on lab error. Not available 06/01/2018 18:06:03 05/26/2023 [id number] high blood press ure: care instructions Not available 05/26/2023 18:09:16 learning about h igh blood pressure Not available 05/26/2023 18:09:16 adaptogenic-with antiviral and viburnum- Nattokinase 1 cap daily 100mg on empty stomach Other: 1. Electrolye drink daily:REcharge- jigsaw-or nuum is fine 2. magnesium taurate 1 cap at bedtime and 1 cap in the am 3. ther-biotic and jose f-sporebiotic- alternate bottles each time finish a papi OTHER TESTIN. Coronary CAlcium score- [place] [facility] will send orders and they should call with jiménez and scheduling- let m eknow if you dont hear anything in 2 weeks 2. Neurohormone test especially if considering lowering celexa etc Not available 05/26/2023 17:28:35 07/09/2023 [id number] hearing loss: ca re instructions Not available 09/01/2023 06:33:12 dizziness: care instructions Not available 09/01/2023 06:33:12 Titus Robertson i PT- for neck , meniere's orders sent for carotid ultrasound to see if contributing to pulsing sound in ears and dizziness Not available 09/01/2023 06:30:43 Reason for Referral Sleep Medicine Referral for Hypertensive disorder Referring Physician: Tati Cardona, Naturopathic Medicine, Encounter Date: 12/01/2023 Problems Name Problem SNOMED Code Status Onset Date Resolution Date Notes Provider Name and Address Organization Details Recorded Time Dizziness 476670258 Active 2023 [address] Cardona [address], [address], [facility] 06:27:10 Hearing loss 72478723 Active 2023 Tati Cardona [address], [address], [employer] [employer] [facility] 4 06:30:03 Hypertensiv e disorder 81386763 Active 2023 Tati Cardona [address], [address], [facility] 4 16:15:04 Middle insomnia 76139369 Active 2023 Tati Cardona [address], [address], [facility] 4 16:16:21 Serum creatinine above reference range 900275171 Active 2023 Tati Cardona ND [address] [place] [address], [address], [facility] 4 16:21:17 Essential hypertensio n 74273153 Completed 201705/20/2018 Tati Cardona ND [address] [place] [address], [address], [facility] 8 14:38:43 Fatigue 77752042 Active 2017 Tati Cardona ND [address] [place] [address], [address], [facility] 8 06:30:30 Disorder of nail 23565415 Active 2017 Tati Cardona ND [address] [place] [address], [address], [facility] [employer] [facility] [employer] 8 06:30:50 Face goes red 130522149 Active 2017 Tati Cardona ND [address] [place] [address], [address], [facility] 8 17:01:35 Vitamin D deficiency 67483689 Active 2017 Tati Cardona ND [address] [place] [address], [address], [facility] 8 17:09:52 Dietary management surveillanc e Active 2017 Tati Cardona ND [address] [place] [address], [address], [facility] 8 18:03:01 Chest pain 70116504 Active 2022 Tati Cardona ND [address] [place] [address], [address], [facility] 3 15:43:52 Hyperlipide reginaldo 59329782 Active 2022 Tati Cardona ND [address] [place] [address], [address], [facility] 3 17:00:49 Benign essential hypertensio n 8902021 Active 2022 Tati Cardona ND [address] [place] [address], [address], [facility] [employer] [facility] [employer] 3 17:02:10 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 Medical Equipment None Reported. Medications Name Sig Start Date Stop Date Status Note LastModified by Organization Details LastModified Time azithromyci n 250 mg tablet 05/26 completed Not Available Not Available Not Available citalopram 10 mg tablet TAKE 2 TABLETS BY MOUTH EVERY DAY active Not Available Not Available No t Available hydralazine 25 mg tablet TAKE ONE TABLET BY MOUTH FOUR TIMES A DAY NEEDED active Not Available Not Available No t Available doxepin 10 mg capsule TAKE THREE CAPSULES BY MOUTH AT BEDTIME; INCREASE EVERY 1-2 NIGHTS TO MAX OF 5 CAPS AT BEDTIME 05/26 completed Not Available Not Available Not Available citalopram 20 mg tablet active Not Available Not Available Not Available lisinopril 10 mg tablet TAKE ONE TABLET BY MOUTH EVERY DAY active Not Available Not Available No t Available lisinopril 5 mg tablet TAKE ONE TABLET BY MOUTH EVERY DAY active Not Available Not Available No t Available hydrochloro thiazide 25 mg tablet active Not Available Not Available No t Available lorazepam 1 mg tablet TAKE ONE TABLET BY MOUTH EVERY DAY NEEDED +MAX 1 TABLET PER DAY+ active Not Available Not Available No t Available zolpidem 10 mg tablet active Not Available Not Available No t Available propranolol 20 mg tablet TAKE ONE TABLET BY MOUTH EVERY DAY NEEDED FOR ANXIETY/H YERPTENSI ON active Not Available Not Available No t Available fluticasone propionate 50 mcg/actuati on nasal spray,suspe nsion USE 2 SPRAYS IN EACH NOSTRIL ONCE DAILY active Not Available Not Available No t Available Denta 5000 Plus 1.1 % cream USE A PEA SIZED AMOUNT AND BRUSH FOR 2MINUTES THEN SPIT OUT. DO NOT EAT/DRINK /RINSE FOR AT LEAST 1 HOUR AFTERWARD active Not Available Not Available No t Available chlorhexidi ne gluconate 0.12 % mouthwash 05/26 completed Not Available Not Available Not Available flaxseed oil and triphala 05/26 completed Not Available Not Available Not Available multivitami n DF[facility] Complete Multi 2 caps 3xday active Not Available Not Available No t Available hydrochloro thiazide 12.5 mg tablet TAKE ONE TABLET BY MOUTH EVERY MORNING active Not Available Not Available No t Available compounded medication 05/26 completed Not Available Not Available Not Available compounded medication 1 cap 2xday active Not Available Not Available No t Available CoQ-10 Coqnol 1 cap/day active Not Available Not Available No t Available Vitals Date Recorded Body weight Oxygen saturation Oxygen saturation in Arterial blood by Pulse oximetry Heart rate Provider Name and Address Organization Details Last Updated DateTime 05/26/2023 79804.11 g 98 % 98 % 56 /min Tati Cardona ND [address] [place] [address] 05/26/2023 18:22:49 Date Recorded Body weight Provider Name an d Address Organization Details Last Updated DateTime 12/01/2023 18132.18 g Tati Cardona ND [address] [place] [address] 12/01/2023 15:35:42 Date Recorded Body height Provider Name an d Address Organization Details Last Updated DateTime 05/06/2018 173.99 cm Tati Cardona ND [address] [place] [address] 05/06/2018 14:02:32 Social History None recorded. Functional Status None recorded. Mental Status None recorded. Family History Nothing Reported. Medical History No medical history recorded. Immunizations Vaccine Type Date Status Note Provider Nam e and Address Organization Details Recorded Time SARS-COV-2 (COVID-19) vaccine, UNSPECIFIED 05/03/2021 completed Tati Cardona ND [address] [place] [address] 05/26/2023 15:43:05 Past Encounters Encounter ID Performer Location Encounter Start Date Encounter Closed Date Diagnosis/Indication Diagnosis SNOMED-CT Code Diagnosis ICD10 Code Diagnosis Note [id number] [place] MAIN OFF[address] [place] [address] 01/25/2018 09:06:59 01/25/2018 10:16:02 Essential hypertension 65112379 I10 Fatigue 48787783 R53.83 Disorder of nail 1317611 8 L60.9 [id number] Tati Brendan[place]MAN, [place] MAIN OFFICE [address] [place] [address] 03/11/2018 12:39:25 03/19/2018 20:20:08 Essential hypertension 65043635 I10 [id number] Tati BrendanINMAN, [place] MAIN OFFICE [address] [place] [address] 04/01/2018 15:52:19 04/01/2018 16:39:41 Face goes red 008547574 R23.2 Essential hypertension 66431483 I10 Vitamin D deficiency 347 86822 E55.9 [id number] Tati BrendanINMAN, [place] MAIN OFFICE [address] [place] [address] 05/06/2018 13:46:15 05/10/2018 21:24:02 Flushing 036179816 R23.2 Vitamin D deficiency 347 79298 E55.9 [id number] Tati SolomonniteshINMAN, [place] MAIN OFFICE [address] [place] [address] 05/20/2018 14:03:58 05/20/2018 17:02:27 Face goes red 752643860 R23.2 Dietary ma nagement surveillance 655901723 Z71.3 [id number] Tati BrendanINMAN, [place] MAIN OFFICE [address] [place] [address] 05/26/2023 15:39:12 05/26/2023 18:41:10 Chest pain 80181746 R07.9 Hyperlipidemia 83201636 E78.5 Benign ess ential hypertension 4219112 I10 Deficiency of alkaline phosphatase 057313714 E88.89 Vitamin D deficiency 347 22366 E55.9 [id number] Tatimary CardonaINMAN, [place] MAIN OFFICE [address] [place] [address] 07/09/2023 15:38:51 09/01/2023 06:33:48 Carotid bruit 031330652 R09.89 Dizziness 275555557 R42 Hearing loss 25659201 H9 1.93 Health Concerns Section Related Observation LastModified by Organization Detai ls LastModified Time None Recorded Concern Status LastModified by Organization Details LastModified Time None Recorded Advance Directives Directive None Recorded Payers Encounter Date Sequence Insurance Name Policy Number Policy Craig Covered Member ID Craig Member ID Guarantor Name 05/06/2018 1 [employer] ([employer]ICAID) Marko Aranda [id number] Marko Aranda 05/20/2018 1 [employer] ([employer]ICA[employer]) Marko Rutledgey [id number] Marko Garciaarthy 05/26/2023 1 [employer] ([employer]ICAID) Marko Rutledgey [id number] Marko Hidalgo Aranda 07/09/2023 1 [employer] ([employer]ICAID) Marko Rutledgey [id number] Marko Aranda Notes Date Note Type Note Provider Name and Address Organization Details Recorded Time 05/06/2018 text/html every once in a while gets am bp 140's over hihg 80'savg scores are 120/80 appetite is good energy greatred face thing he has looked back at photoshis bp was good 2011 but he thinks back in time and felt hot and uncomfortableand wondered if he had high bphe drank glass whisky 1xweek wine 1-2 week or beer 12 oz he took 3 week off of etohbut has never quit entirely when he wasnt measuring bp he thought he had high bp but now that he tests it its low--100/60 -110/65especially if has consequtive days of runninghe feels a pressure in the head like its thick and maybe he had periods of high bp Tati Cardona, ND [address] [facility], [place], [address], [facility] 05/10/2018 21:23:46 05/20/2018 text/html discussed labs c lean bill although histamin was [id number]'sconsist sadas noticed redness in face over the yearslooked back at picturesdiscussed diet and food reactions- but doenst feel this is the problem. 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 discussed diet and spices and hot foods relating to flushing he feels so much better than when he originally camethe LOW GFR seems to have been a lab error twice and they corrected it by male profile-we will discontinue the KD supportand possibly revisit BP- but home numbers are excellent!120/70 Tati Cardona, ND [address] [facility], [place], [address], [place] - [facility] 06/01/2018 18:07:48 05/26/2023 text/html blood pressure i ssues since 2014-he goes through long periods where the BP is low-periodically he gets break through high periods of BP elevated-running help recalibrate-HOW Numbers?incidence of high BP and pain and left arm and shoulder pain-if BP comes down then pain goes awayso he went to PCP, stress anddul aches-more frequent- used to be mopnths apart- now 1xevery 2-3 weeks-he can get pain when the BP isnt- highhis GP thinks its anxiety random takes bp at [facility] in the evening-if he sees it high he will sit down and relax and see if it comes downhe woke 160-170 almost alaways fine low 70 to 80kidneys- worked up??? Sep 2022 got a bug that lasted amonth-fatigue and mm aches-he got the 5 weeks cough-felt fluid on his lungs-he woke and couldnt breath-40 sec couldnt breath- then it clearedwent to ER first time-hernia or reflux after not breathing thing he was severely depressed-January broke down and was crying-2 more weeks- insomnia- unmanaeagable-if he fells asleep- woke with adrenal rocha- then put hime on antidepressant and it has worked well for himthen he went to therapist-she felt it was due to trauma when he didnt breath for 40 sec-no sleep apnea test-no snoringhe definielty thinks its not sleep apnea-Ativan- not on it now-sleep s well now-gets up early and asleep by 9exercised running 30 miles a month-feels really go when he is running- he did nothing for a month-lost 20 pounds in amonth from depression stopped taking hydrchlorathiside and lisinopril and had 3/4 weeks of totally noraml BP-then went back on lisinopril- and then also the HCTZnothing causes BPnap wakes up with high BP-lisinopril in 2014 and mm aches started ayear ago-no sweating no haert pounding-he thinks it is something and he wants me to fix it-he feels it in his body- bp good for a few days- took a steam 100-65 after a steam bath-no pain when low feels looseness like weakness-he is a low candidate for heart attack or stroke but he diesnt feel that is so-he gets dehydrates on celexa- he does feel dehydrated at [facility] tried dealing-with choline, Muktavati- and he was also taking lisinopril- he up for seeing a youth development specialist but MD didnt think was necessary- he had covid 2x and had all 3 shots-1 week after 2nd shot-almost deaf in the [facility] ear lasted 3 weeks-then it just went away- when he was young in [place] he got severe chest pains- Tati Cardona, ND [address] [facility], [place], [address], [place] - [facility] 05/26/2023 18:26:24 07/09/2023 text/html nausea and dizinessthinks its meniers-has sx for 20 yrs-pressure and buzzing andMRI looking at tubes in his ear-hearing goes from one day to hear and the next can hear-presure and fullness- [facility] for dry needling- for years-he did rolfing- and found issue in thigh-left thigh related to heart acceleration- bp meds- feels good on it-no high bp reading since- highest 130s/sts 140nattokinase and herbslisinopril and HCTZ comes down immediately- no shoulder pain and bp is ok3-5 days of sustained high bottom always normal or more often than notresting heart is a little lower at 45- FEb bug and cough in FEb-then run avg hr 130now it avg at 100 if he runs-treadmill test was fineweeks usually without sxits been a month-nattokinase 1 daily no pain in arm- Tati Cardona, ND [address] [facility], [place], [address], [place] - [facility] 09/01/2023 06:33:33
== END 2024-09-02 00:37 ==
LOC: DI 00:17
PROVIDERS: PCP Family Medicine; Visit Provider Family Medicine
DX: M48.02 Spinal stenosis, cervical region (principal)
CPT/HCPCS: 72141

== ENCOUNTER 2024-09-26 14:47 | Outpatient (REF) | payer BC, SELFPAY ==
[2024-09-26 22:19] LABS: COMMENT (LAB VIEW ONLY) 31.45 mg/dL; Microalb ug/mg Crea 8.9 ug/mg Cr
== END 2024-09-26 14:48 | disposition home or self-care (01) ==
LOC: NCHCN 14:47
PROVIDERS: PCP Family Medicine; Visit Provider Family Medicine
DX: I10 Essential (primary) hypertension (principal)
CPT/HCPCS: 82043; 82570

== ENCOUNTER 2024-09-29 01:39 | Emergency (ER) | payer BC, SELFPAY ==
--- NOTE | 2024-09-29 01:30 | RT.EKG_ITS ---
APPROVED REPORT Exam: Resting ECG Reason for Exam: syncopal episode Patient Location: E HR:68 bpm ECG Measurements Heart Rate 68 AXIS NE 204 P 48 QRSd 105 QRS 256 QT 426 T 58 QTc 454 Conclusion Sinus rhythm...normal P axis, V-rate 60- 99 Left anterior fascicular block...axis(240,-40), init forces inf Left [place] Nonspecific ST-T flattening Compared to prior EKG performed on 11/26/2023 at 10:15, ST flattening more pronounced.
[2024-09-29 01:40] VITALS: BP 166/82; PULSE 68; RESP 19; TEMP 37; O2SAT 95
[2024-09-29 01:49] VITALS: RESP 18
[2024-09-29 02:04] LABS: Abs Immature Grans 0.02 10^3/uL (0.0-0.06); Absolute Basophil Count 0.01 10^3/uL (0.0-0.2); Absolute Eosinophil Count 0.04 10^3/uL (0.0-0.7); Absolute Lymphocyte Count 0.49 10^3/uL (1.2-3.4); Absolute Monocyte Count 0.45 10^3/uL (0.1-0.8); Absolute Neutrophil Count 5.08 10^3/uL (1.2-6.7); Basophils % 0.2 %; Eosinophils % 0.7 %; HCT 41.7 % (40.0-50.0); HGB 14.9 g/dL (13.5-17.5); Immature Grans % 0.3 %; MCH 31.4 pg (27.0-33.0); MCHC 35.7 % (32.0-36.0); MCV 88 fL (80-95); MPV 9.2 fL (8.0-11.0); Monocytes % 7.4 %; Neutrophils % 83.4 %; Platelet Count 148 10^3/uL (130-400); RBC 4.75 10^6/uL (4.36-5.78); RDW 11.8 % (11.8-14.1); WBC 6.09 10^3/uL (4.4-10.8)
--- NOTE | 2024-09-29 02:04 | W.ED.GENAD ---
Discharge Plan Disposition Patient Disposition: Home Condition: Good Discharge Details Clinical Impression: Syncope, Influenza A, Forehead abrasion Primary Care Provider: Samuel Morgan ED Provider: Calderon Rodriguez [place] Meds and New Rx's Prescriptions: Continued fluticasone propionate 50 mcg/actuation spray,suspension 2 spray RAYRAY DAILY citalopram [Celexa] 10 mg tablet 20 mg PO DAILY Qty: 14 0RF propranolol 20 mg tablet 20 mg PO PRN Patient Comments: TAKE ONE TABLET BY MOUTH EVERY DAY NEEDED FOR ANXIETY/HYERPTENSION hydrochlorothiazide 12.5 mg tablet 12.5 mg PO DAILY Patient Comments: TAKE ONE TABLET BY MOUTH EVERY MORNING hydralazine 25 mg tablet 25 mg PO QID PRNQty: 30 0RF lisinopril 10 mg tablet 10 mg PO DAILY Discharge Instructions Instructions: Syncope (fainting), Abrasions ED, Flu, Adult ED Additional Instructions: You were seen after a syncopal event at home that is likely related to being ill with the flu, orthostasis and vagal event. Your EKG, laboratory studies, chest x-ray and head CT are all reassuring. Keep your forehead abrasions clean and apply antibiotic ointment 2-3 times a day to help with healing. Rest and continue to push fluids to stay hydrated. Follow-up with primary care next week for recheck. Return to ED for any neurologic change, chest pain, shortness of breath, recurrent syncope, other concerns. Referrals: Samuel Morgan MD [Primary Care Provider] - [facility] General Mode of arrival: EMS. Date/Time Provider Initiated Documentation: 09/29/24 01:47. Limitations to Documentation: no limitations. Information obtained by: patient, EMS, RN notes reviewed and old records reviewed. HPI Narrative: Patient presents to ED after syncopal event at home. Patient reports having sweats and chills, malaise, body aches over the last few days. Denies any significant cough or shortness of breath. Has had decreased appetite but has been drinking plenty of fluids. Woke up feeling nauseated. Sat up on the side of the bed and apparently had a syncopal event resulting in him striking his head on the floor. He denies having any type of chest pain or pressure prior to the event. He was just very nauseated. Denies chest pain or shortness of breath currently. Nausea has resolved. Denies any abdominal pain. Has some abrasions to his forehead where he struck the floor. Denies headache. Has neck pain which is unchanged from his chronic daily neck pain. Has no neurologic complaints. Has had prior syncope once in the past that was considered multifactorial per the patient. Past medical history significant for hypertension only. Related Data Home Medications ?Medication ?Instructions ?Recorded ?Confirmed fluticasone propionate 50 2 spray intranasal DAILY 09/19/19 09/29/24 mcg/actuation nasal spray,suspension citalopram 10 mg tablet (Celexa) 20 mg (2 x 10 mg) PO DAILY #14 tabs 02/03/23 09/29/24 propranolol 20 mg tablet 20 mg PO PRN 11/13/23 09/29/24 hydralazine 25 mg tablet 25 mg PO QID PRN #30 tabs 11/14/23 09/29/24 hydrochlorothiazide 12.5 mg tablet 12.5 mg PO DAILY 11/14/23 09/29/24 lisinopril 10 mg tablet 10 mg PO DAILY 09/29/24 09/29/24 Previous Rx's ?Medication ?Instructions ?Recorded citalopram 10 mg tablet (Celexa) 20 mg (2 x 10 mg) PO DAILY #14 tabs 02/03/23 hydralazine 25 mg tablet 25 mg PO QID PRN #30 tabs 11/14/23 Allergies Allergy/AdvReac Type Severity Reaction Status Date / Time penicillin V Allergy Mild Other (See Verified 11/26/23 11:42 Comment) General Stated Complaint: [id number] KVNG: 2 Exam Narrative Exam Narrative: Const: WDWN male in NAD. VS per triage. HEENT: NC. Abrasion over right eyebrow. Skin tear left forehead. No bony tenderness. Neck: Supple. Trachea midline. No cervical spine tenderness. Normal ROM. Lungs: Normal respiratory effort. Lungs are clear. Cor: RRR without murmur. Good radial pulses. GI: Soft/ND/NT. Neuro: A+O x 3. Normal speech, mentation. Cranial nerves II - XII grossly intact. No gross motor or sensory deficit. Ext: No C/C/E. Course Vital Signs Vital signs: Vital Signs Temperature 98.6 F 09/29/24 01:40 Pulse 68 09/29/24 01:40 Respiratory Rate 19 09/29/24 01:40 Blood Pressure 166/82 H 09/29/24 01:40 Pulse Oximetry 95 09/29/24 01:40 Temperature 98.6 F 09/29/24 01:40 Temperature Source Temporal Artery Scan 09/29/24 01:40 Pulse 68 09/29/24 01:40 Respiratory Rate 18 09/29/24 01:49 Respiratory Effort Normal, Non-Labored 09/29/24 01:49 Respiratory Depth Normal 09/29/24 01:49 Respiratory Pattern Normal 09/29/24 01:49 Blood Pressure 166/82 H 09/29/24 01:40 Blood Pressure Position Sitting 09/29/24 01:40 Pulse Oximetry 95 09/29/24 01:40 Oxygen Delivery Method Room Air 09/29/24 01:40 Oxygen Flow Rate 0 09/29/24 01:40 Pain Level 2 09/29/24 01:40 Medical Decision Making Patient presenting from home by ambulance after developing nausea and syncope. Patient has been unwell with what he describes as viral symptoms mostly sweats and chills, malaise, fatigue, mild respiratory symptoms. Woke up with severe nausea thinking he was going to vomit. When he sat up on the side of the bed apparently passed out. Denies having any chest pain prior or after. Has no shortness of breath. Did strike his head but currently no headache or neurologic change. Has been drinking plenty of fluids during his illness just not eating as much. Suspect this likely vagal, may be orthostatic. 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 Some flattening of the ST segments but no acute changes. IV is in place. His vital signs look good. Saturations are normal. Will obtain laboratory studies including D-dimer and troponin. Will obtain CT of the head. Cervical spine is cleared clinically. Chest imaging per results of D-dimer. Patient's laboratory studies with normal white count and hemoglobin, normal chemistries and kidney function. D-dimer is negative. Chest x-ray ordered. Initial troponin 10. Imaging, Fluvid, repeat troponin pending. Repeat troponin remains flat. Fluvid has returned positive for influenza A. CT head preliminary read per radiology is negative for intracranial trauma. Chest x-ray per my read with no evidence of acute cardiopulmonary process. Patient given a liter of fluids. He has had no arrhythmias on the monitor. He is feeling better. Suspect his syncope is somewhat multifactorial once again and related to his illness, orthostasis, vagal event. Will not start on Tamiflu given duration of his symptoms previously. Instructed on wound care for his skin tear and abrasions. He is asked to follow-up with primary care next week for recheck. Return precautions provided. Imaging Data Radiologic Study: Attestation: I personally reviewed and interpreted this imaging study as follows: Imaging: X-Ray My impression: Unremarkable chest x-ray Lab Data Lab results reviewed: Yes I reviewed the patient's lab results. Lab results narrative: see [facility] ECG Data Attestation: I personally reviewed and interpreted this ECG (s) as follows: Prior ECG tracings: available for review Interpretation: See EKG/[facility] PFSH All Active Problems (Updated 09/29/24 @ 03:42 by Calderon Rodriguez MD) Forehead abrasion (Acute) Influenza A (Acute) Syncope (Chronic) Bilateral sensorineural hearing loss (Acute) Flushing (Acute) Pain in left foot (Acute) Contracture of left Achilles tendon (Acute) Plantar fasciitis (Acute) Cervical radiculopathy (Acute) Tinnitus, right (Acute) Vertigo (Acute) Asymmetrical sensorineural hearing loss (Acute) Abnormal auditory perception of right ear (Acute) Internal derangement of right knee (Acute) Tendinopathy of patella (Acute) Iliotibial band syndrome, left leg (Acute) Nasal polyp (Acute) Deviated nasal septum (Acute) Allergic rhinitis (Acute) Sleep apnea (Acute) Neck pain (Acute) Seborrheic keratosis (Acute) Ventral hernia (Acute) Medical History HTN (hypertension) Anxiety Panic disorder Social History Smoking/Tobacco Use Status: Never Smoking risk assessment performed?: Yes Alcohol Intake: current Alcohol Intake frequency: a few times a month Alcohol type: beer and wine Drug use: Never Substance use type: does not use Adopted: Yes Household members: spouse and other Details: adult son Housing: house current occupation: works at [employer] in [employer] Pets and animals: Yes Pets and animals: cat(s) and dog(s) Current gender identity: male What is your relationship status?: Panel score (0-1 are the most socially isolated patients): 1 What type of physical activity do you participate in: walking Duration: 15-30 minutes/day Frequency: 5-6 times per week Do you feel safe at home: Yes Do you feel safe in your relationship?: Yes
[2024-09-29 02:20] LABS: ALT 25 U/L (16-63); AST 15 U/L (15-37); Albumin 3.6 g/dL (3.4-5.0); Alkaline Phosphatase 39 U/L (46-116); Anion Gap 9.5 mmol/L (3-11); BUN 9 mg/dL (7-18); Bilirubin, Total 1.05 mg/dL (0.2-1.0); CO2 31.5 mmol/L (21.0-32.0); CREATININE 1.1 mg/dL (0.70-1.30); Calcium 8.5 mg/dL (8.5-10.1); Chloride 100 mmol/L (98-107); Estimated GFR 74.96 (mL/min/1.73m2); Glucose 156 mg/dL (74-106); Potassium 3.6 mmol/L (3.5-5.1); Sodium 141 mmol/L (136-145); Total Protein 7.2 g/dL (6.4-8.2); Troponin I 10 ng/L (<or=76)
[2024-09-29 02:28] LABS: D-Dimer 354 ng/mlFEU (<500)
[2024-09-29 02:48] LABS: COVID-19 PCR Negative (Negative); Influenza A PCR Positive (Negative); Influenza B PCR Negative (Negative); RSV PCR Negative (Negative)
[2024-09-29 02:49] LABS: Source Nasopharynx
--- NOTE | 2024-09-29 03:03 | DI.RAD_ITS ---
Exam(s) XR CHEST 2V PA LATERAL EXAM: XR CHEST 2V PA LATERAL CLINICAL HISTORY: syncope TECHNIQUE: 2D digital imaging was performed. Two views. COMPARISON: No exams were available for comparison FINDINGS: HEART: Normal size. Aorta: Not dilated. PULMONARY VASCULATURE: Normal. MEDIASTINUM: Unremarkable. LUNGS: Clear. PLEURAL SPACE: No pleural effusion or pneumothorax. BONE:Unremarkable for age. SOFT TISSUES: Unremarkable. IMPRESSION: No acute abnormality. DATA REPOSITORY: RADIATION DOSE DELIVERED:
--- NOTE | 2024-09-29 03:03 | DI.CT_ITS ---
Exam(s) CT HEAD WO EXAM: CT HEAD WO CLINICAL HISTORY: syncope, head injury. TECHNIQUE: Imaging Protocol: Axial computed tomography images with coronal and sagittal reformatted images were created and reviewed COMPARISON: No exams were available for comparison FINDINGS: Ventricles and Extra axial spaces: Normal in size and morphology for the patient's age. Hemorrhage: None. Cerebral parenchyma: No evidence of acute infarct or mass. Xcpc-lc-[id number] patchy areas of decreas ed attenuation white matter consistent with chronic microvascular disease. Midline shift: None. Brainstem/Cerebellum: Normal. Calvarium: Normal. Visualized Paranasal sinuses:Opacification of multiple sinuses. Mastoid air cells are clear. Mastoids: Clear. Soft Tissues: Unremarkable. ORBITS: Unremarkable. PITUITARY: Not enlarged. IMPRESSION: No acute intracranial process. Chronic sinus disease. RADIATION DOSE DELIVERED: 815.52mGy.cm Total DLP DATA REPOSITORY: All CT scans at this facility are submitted to the National Radiology Data Registry (NRDR) Dose Index Registry (DIR) with the [employer] ([employer]). RADIATION OPTIMIZATION: All CT scans at this facility use at least one of these dose optimization te chniques: automated exposure control; mA and/or kV adjustment per patient size (includes targeted exa ms where dose is matched to clinical indication); or iterative reconstruction.
[2024-09-29 03:06] LABS: Troponin I 12 ng/L (<or=76)
[2024-09-29] MEDS: Lactated Ringers 1,000 ML 1000 ML IV (03:13)
--- NOTE | 2024-09-29 03:19 | DI.VRAD_ITS ---
PROCEDURE INFORMATION: Exam: CT Head Without Contrast Exam date and time: 09/29/2024 2:40 AM Age: 64 years old Clinical indication: Injury or trauma; Fall; Blunt trauma (contusions or hematomas); Consciousness not specified; Injury date: 09/29/24; Syncope, head injury TECHNIQUE: Imaging protocol: Computed tomography of the head without contrast. Radiation optimization: All CT scans at this facility use at least one of these dose optimization techniques: automated exposure control; mA and/or kV adjustment per patient size (includes targeted exams where dose is matched to clinical indication); or iterative reconstruction. COMPARISON: MR IAC BRAIN WO/W 07/16/2023 12:38 PM FINDINGS: Brain: No acute intracranial hemorrhage, mass-effect, midline shift, or extra-axial collection is seen. There is patchy white matter hypoattenuation, nonspecific but commonly seen as a chronic sequela of small vessel ischemic disease. The narvaez white matter differentiation appears preserved. There is symmetric parenchymal volume loss. Cerebral ventricles: The ventricular system and basilar cisterns appear appropriate in size and configuration. Paranasal sinuses: There is subtotal opacification of the visualized portion of the paranasal sinuses. Mastoid air cells: The visualized mastoid air cells appear well aerated. Auditory system: The middle ear cavities appear clear. Bones: The bony calvarium appears intact. No depressed skull fracture is seen. Soft tissues: No significant scalp lesion is seen. IMPRESSION: 1. No acute intracranial hemorrhage or depressed skull fracture. 2. Subtotal opacification of the visualized portion of the paranasal sinuses. Chronic sinusitis is suggested. Clinical correlation is recommended. Dictated and Authenticated by: Artemio Garza MD. Orderin Michael Mancera MD
--- NOTE | 2024-09-29 03:19 | DI.VRAD_ITS ---
PROCEDURE INFORMATION: Exam: XR Chest Exam date and time: 09/29/2024 2:54 AM Age: 64 years old Clinical indication: Other: Syncope TECHNIQUE: Imaging protocol: Radiologic exam of the chest. Views: 2 views. COMPARISON: CT CHEST PE CTA 11/22/2022 2:42 AM FINDINGS: Lungs: No pulmonary consolidation is seen. Pleural spaces: No pleural effusion or pneumothorax is demonstrated. Heart/Mediastinum: The heart appears normal in size. Bones/joints: The visualized bony structures appear grossly intact, as seen. IMPRESSION: No active disease is seen in the chest. Dictated and Authenticated by: Artemio Garza MD. Orderin Michael Mancera MD
[2024-09-29 03:56] VITALS: BP 153/75; PULSE 65; RESP 17; TEMP 37.1; O2SAT 97
[2024-09-29] MEDS: Acetaminophen 500 MG TAB 1000 MG PO (04:19)
== END 2024-09-29 04:19 | disposition home or self-care (01) ==
PROVIDERS: Emergency Provider Emergency Medicine; PCP Family Medicine
DX: S00.81XA Abrasion of other part of head, initial encounter (principal); R55 Syncope and collapse; J10.1 Influenza due to other identified influenza virus with other respiratory manifestations
CPT/HCPCS: 80053; 87637; 93005; 96360; 99284; 70450; 71046; 83735; 84484; 85025; 85379; 93010